=== PATIENT | male | born 1940 | race Caucasian/White ===

== ENCOUNTER 2016-04-17 13:57 | Emergency (ER) | payer OTHER ==
[~2016-04-17] VITALS: Ht 185.4 cm; Wt 119.0 kg
[~2016-04-17 13:57] MED LIST: ALLO100T PO; ASPI81TA82 PO; CENTTAB9 PO; CEPH500C3 PO; CODOIL PO; COMBAER INH; DILT360T PO; FISH1000 PO; FURO20TA PO; LEVO75TA3 PO; LIPI80TA16 PO; LORT5TAB PO; METO25 PO; POTA-243 PO; TERA2CAP3 PO
[2016-04-17 14:08] VITALS: BP 131/80; PULSE 64; RESP 16; TEMP 98.7; O2SAT 97
[2016-04-17] MEDS ORDERED: SODIUM CHLORIDE 0.9% FLUSH 5 ML FLUSH IVF PRN (15:00)
--- NOTE | 2016-04-17 15:01 | PD ---
HPI Chief Complaint: Dizziness Time Seen by Provider: 15:01 Travel History International Travel<30 days: No Contact w/Intl Traveler<30days: No Traveled to known affect area: No History of Present Illness HPI 75-year-old male presents to the emergency department sent by his primary care physician at the [facility]. The patient states he is going to the [facility] today to be seen for right ear pain. He states that when he got out of his car after arriving, he felt dizzy. He states he had a hold on to his car to keep from falling over. He states he felt lightheaded. He denies feeling the room was spinning around him. He states the dizziness continued and EMS was called. Apparently, his blood pressure was hypotensive with 70s systolic. Patient denies any chest pain then or now. He does report shortness of breath with a history of COPD. Patient does state that his amiodarone was increased last week. He has a history of diabetes, hypertension, hyperlipidemia, COPD, atrial fibrillation, hypothyroidism, BPH, CAD, depression, TIA 2, stent placement, AICD. Patient states he feels good at this time. He reports minimal dizziness. No abdominal pain. No nausea or vomiting. His only complaint is right ear pain. PFSH Past Medical History Hx Anticoagulant Therapy: Yes Asthma: Yes Blood Disorders: No Cancer: No Cardiovascular Problems: Yes High Cholesterol: Yes Diabetes: No Endocrine: No Genitourinary: Yes Hepatitis: No Hiatal Hernia: No Hypertension: Yes Immune Disorder: No Musculoskeletal: No Neurologic: No Psychiatric: No Reproductive: No Respiratory: Yes (COPD, USES COMBIVENT INHALER, SLEEP APNEA:CPAP) Thyroid Disease: Yes Tetanus Vaccination: < 5 Years Past Surgical History Abdominal Surgery: Yes (CHOLECYSTECTOMY, APPENDECTOMY) AICD: No Cardiac Surgery: No Cholecystectomy: Yes Ear Surgery: No Endocrine Surgery: No Eye Surgery: No Genitourinary Surgery: No Gynecologic Surgery: No Oral Surgery: Yes (TEETH EXTRACTION) Pacemaker: No Thoracic Surgery: No Other Surgery: Yes Social History Alcohol Use: Yes (ON OCCASION) Tobacco Use: No (QUIT 7 YEARS AGO ) Substance Use: No Allergies-Medications (Allergen,Severity, Reaction): Coded Allergies: No Known Allergies (Verified , 04/17/16) Reported Meds & Prescriptions Reported Meds & Active Scripts Active Lortab 5/500 (Acetaminophen/Hydrocodone Bitart) 5 Mg/500 Mg Tab 1 Tab PO Q6 PRN Keflex (Cephalexin Monohydrate) 500 Mg Cap 500 Mg PO QID Reported Cardizem La (Diltiazem HCl) 360 Mg Tab 360 Mg PO DAILY Lopressor (Metoprolol Tartrate) 25 Mg Tab 12.5 Mg PO BID Allopurinol 100 Mg Tab 100 Mg PO HS Combivent (Albuterol/Ipratropium) 14.7 Gm Aer 2 Puff INH Q6HPRN FOR WHEEZING Aspir-81 (Aspirin) 81 Mg Tab 81 Mg PO DAILY HOLD MEDICATION FOR 2 WEEKS Fish Oil 1,000 Mg Cap 1,000 Mg PO DAILY Centrum (Multivitamins) Tab 1 Tab PO DAILY Lipitor (Atorvastatin Calcium) 80 Mg Tab 80 Mg PO HS Terazosin Hcl (Terazosin HCl) 2 Mg Cap 4 Mg PO HS Cod Liver Oil Oil 1 PO DAILY Levothyroxine Sodium (Generic) (Levothyroxine Sodium) 75 Mcg Tab 75 Mcg PO DAILY Klor-Con 10 Meq (Potassium Chloride) 10 Meq Tabcr 10 Meq PO DAILY Furosemide 20 Mg Tab 20 Mg PO DAILY Review of Systems Except as stated in HPI: all other systems reviewed are Neg Physical Exam Narrative GENERAL: Well-developed well-nourished male patient, ambulatory. Afebrile. SKIN: Warm and dry. HEAD: Normocephalic. Atraumatic. ENT: Mucosa pink and moist. No erythema or exudates. No uvular edema. No uvular , palatal, or tonsillar deviation. Airway patent. Nasal turbinates appear normal without nasal blood, purulent drainage or septal hematoma. Right ear canal is swollen and I am unable to visualize tympanic membrane. No mastoid tenderness. Left tympanic membrane and ear canal are are without erythema. EYES: No scleral icterus. No injection or drainage. NECK: Supple, trachea midline. No JVD or lymphadenopathy. CARDIOVASCULAR: Regular rate and rhythm without murmurs, gallops, or rubs. RESPIRATORY: Breath sounds equal bilaterally. No accessory muscle use. Lungs sounds with inspiratory and expiratory wheezes noted throughout. NEUROLOGICAL: Awake and alert. Cranial nerves II through XII intact. Motor and sensory grossly within normal limits. Five out of 5 muscle strength in all muscle groups. Normal speech. All extremities are neurovascularly intact. Patient is ambulatory with a steady gait. GASTROINTESTINAL: Abdomen soft, non-tender, nondistended. MUSCULOSKELETAL: No cyanosis, or edema. BACK: Nontender without obvious deformity. No CVA tenderness. Data Data Last Documented VS Vital Signs Date Time Temp Pulse Resp B/P Pulse Ox O2 Delivery O2 Flow Rate FiO2 04/17/16 16:33 70 121/85 69 116/70 04/17/16 14:08 98.7 16 97 Orders Electrocardiogram (04/17/16 14:59) Complete Blood Count With Diff (04/17/16 14:59) Comprehensive Metabolic Panel (04/17/16 14:59) Magnesium (Mg) (04/17/16 14:59) Ckmb (Isoenzyme) Profile (04/17/16 14:59) Troponin I (04/17/16 14:59) Urinalysis - C+S If Indicated (04/17/16 14:59) Chest, Single Ap (04/17/16 14:59) Ct Brain W/O Iv Contrast(Rout) (04/17/16 14:59) Ecg Monitoring (04/17/16 14:59) Iv Access Insert/Monitor (04/17/16 14:59) Oximetry (04/17/16 14:59) Sodium Chloride 0.9% Flush (Ns Flush) (04/17/16 15:00) Orthostatic Vital Signs (04/17/16 14:59) Albuterol-Ipratropium Neb (Duoneb Neb) (04/17/16 15:15) Sodium Chlor 0.9% 1000 Ml Inj (Ns 1000 M (04/17/16 18:30) Amoxicillin (Trimox) (04/17/16 18:30) Labs Laboratory Tests Test 04/17/16 04/17/16 15:10 17:55 White Blood Count 10.7 TH/MM3 Red Blood Count 4.37 MIL/MM3 Hemoglobin 13.6 GM/DL Hematocrit 40.6 % Mean Corpuscular Volume 93.0 FL Mean Corpuscular Hemoglobin 31.2 PG Mean Corpuscular Hemoglobin 33.6 % Concent Red Cell Distribution Width 14.9 % Platelet Count 242 TH/MM3 Mean Platelet Volume 9.8 FL Neutrophils (%) (Auto) 65.1 % Lymphocytes (%) (Auto) 20.5 % Monocytes (%) (Auto) 7.7 % Eosinophils (%) (Auto) 5.7 % Basophils (%) (Auto) 1.0 % Neutrophils # (Auto) 7.0 TH/MM3 Lymphocytes # (Auto) 2.2 TH/MM3 Monocytes # (Auto) 0.8 TH/MM3 Eosinophils # (Auto) 0.6 TH/MM3 Basophils # (Auto) 0.1 TH/MM3 CBC Comment DIFF FINAL Differential Comment Sodium Level 138 MEQ/L Potassium Level 4.7 MEQ/L Chloride Level 103 MEQ/L Carbon Dioxide Level 27.8 MEQ/L Anion Gap 7 MEQ/L Blood Urea Nitrogen 24 MG/DL Creatinine 2.29 MG/DL Estimat Glomerular Filtration 28 ML/MIN Rate Random Glucose 79 MG/DL Calcium Level 8.8 MG/DL Magnesium Level 2.3 MG/DL Total Bilirubin 0.5 MG/DL Aspartate Amino Transf 34 U/L (AST/SGOT) Alanine Aminotransferase 45 U/L (ALT/SGPT) Alkaline Phosphatase 87 U/L Total Creatine Kinase 84 U/L Troponin I LESS THAN 0.02 NG/ML Total Protein 7.0 GM/DL Albumin 3.3 GM/DL Urine Color YELLOW Urine Turbidity CLEAR Urine pH 5.5 Urine Specific [place] 1.008 Urine Protein NEG mg/dL Urine Glucose (UA) NEG mg/dL Urine Ketones NEG mg/dL Urine Occult Blood NEG Urine Nitrite NEG Urine Bilirubin NEG Urine Urobilinogen LESS THAN 2.0 MG/DL Urine Leukocyte Esterase NEG Urine RBC LESS THAN 1 /hpf Urine WBC 1 /hpf Urine Squamous Epithelial 1 /hpf Cells Microscopic Urinalysis Comment CULT NOT INDICATED MDM Medical Decision Making Medical Screen Exam Complete: Yes Emergency Medical Condition: Yes Medical Record Reviewed: Yes Interpretation(s) Last Impressions Head CT 04/17/16 1459 Signed Impressions: Service Date/Time: April 15:31 - CONCLUSION: 1. 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 2. No acute intracranial abnormality is identified. Thomas Solares MD chest x-ray - CONCLUSION: Slight cardiomegaly. Differential Diagnosis Vertigo versus intracranial abnormality versus electrolyte abnormality versus ACS Narrative Course 75-year-old male presents to the emergency department for evaluation of dizziness at the [facility] today. He states he is feeling better at the time I am seeing him. EKG, CBC, CMP, magnesium, CK, troponin, UA, chest x-ray, CT of the brain, orthostatic vital signs are ordered and pending. Patient is given DuoNeb 2. EKG shows paced rhythm, HR 52,no STEMI. CBC shows no acute abnormalities. CMP shows 24, creatinine 2.29. Magnesium is 2.3. CK is 84. Troponin is less than 0.02. UA shows no evidence of acute infection. Chest x-ray shows slight cardiomegaly. CT of the brain shows 1. 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 2. No acute intracranial abnormality is identified. Orthostatic vital signs is 121/85 supine, 116/70 standing. Upon reexamination, patient states he still feels wonderful would like to be discharged. Patient's only complaint is right ear pain at this time. Patient be discharged prescription for Ciprodex and amoxicillin. Patient is agreeable to this plan. He is instructed to return for any acute worsening of symptoms. The patient was discharged in stable condition with instructions, including return instructions and follow up instructions. Diagnosis Primary Impression: Otitis externa Qualified Code: H60.501 - Acute otitis externa of right ear, unspecified type Additional Impression: Vertigo Referrals: Primary Care Physician 2 days Patient Instructions: Dizziness (ED), General Instructions, Otitis Externa (ED) Additional Instructions: Take amoxicillin as directed until gone. Use Ciprodex ear drops to the right ear as directed. Follow-up with your primary care physician. Return immediately for any acute worsening of symptoms. Med/Other Pt SpecificInfo: Prescription(s) given Scripts Amoxicillin 875 Mg [id number] Mg PO BID 10 Days Ref 0 Prov:Katelin Castro 04/17/16 Ciprofloxacin-Dexamethasone Otic Drops (Ciprodex Otic Drops)0.3-0.1% Susp4 Drop RIGHT EAR BID #1 BOTTLE Ref 0 Prov:Katelin Castro 04/17/16 Disposition: 01 DISCHARGE HOME Condition: Stable Katelin Castro Apr 17, 2016 15:01
[2016-04-17] MEDS ORDERED: RESP: ALBUTEROL 2.5 MG/IPRATROPIUM 0.5 MG NEB (SCH) INH (15:15)
--- NOTE | 2016-04-17 16:08 | RADRPT ---
EXAM DATE/TIME: 04/17/2016 15:31 [facility] COMPARISON: No previous studies available for comparison. INDICATIONS : Dizziness. RADIATION DOSE: 56.35 CTDIvol (mGy) MEDICAL HISTORY : Cardiovascular disease. Hypertension. Chronic obstructive pulmonary disease. SURGICAL HISTORY : None. ENCOUNTER: Initial ACUITY: 1 day PAIN SCALE: 0/10 LOCATION: cranial TECHNIQUE: Multiple contiguous axial images were obtained of the head. Using automated exposure control and adj ustment of the mA and/or kV according to patient size, radiation dose was kept as low as reasonably a chievable to obtain optimal diagnostic quality images. FINDINGS: CEREBRUM: The ventricles are normal for age. No evidence of midline shift, mass lesion, hemorrhage or acute in farction. 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 No extra-axial fluid collections are seen. POSTERIOR FOSSA: The cerebellum and brainstem are intact. The 4th ventricle is midline. The cerebellopontine angle i s unremarkable. EXTRACRANIAL: The visualized portion of the orbits is intact. SKULL: The calvaria is intact. No evidence of skull fracture. CONCLUSION: 1. 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 2. No acute intracranial abnormality is identified. Thomas Solares MD on April 17, 2016 at 16:06 Board Certified Radiologist. This report was verified electronically.
[2016-04-17 16:28] LABS: BASOPHIL # 0.1 TH/MM3 (0-0.2); EOSINOPHIL # 0.6 TH/MM3 (0-0.4); EOSINOPHIL % 5.7 % (0.0-4.0); HEMATOCRIT 40.6 % (39.0-51.0); HEMO FLAGS DIFF FINAL; LYMPH % 20.5 % (9.0-44.0); LYMPHOCYTE # 2.2 TH/MM3 (1.0-4.8); MEAN CORPUSCULAR HEMOGLOBIN 31.2 PG (27.0-34.0); MEAN CORPUSCULAR HGB CONC 33.6 % (32.0-36.0); MONO % 7.7 % (0.0-8.0); NEUT % 65.1 % (16.0-70.0); PLATELET COUNT 242 TH/MM3 (150-450); RED BLOOD COUNT 4.37 MIL/MM3 (4.50-5.90); RED CELL DISTRIBUTION WIDTH 14.9 % (11.6-17.2); WHITE BLOOD COUNT 10.7 TH/MM3 (4.0-11.0)
[2016-04-17 16:33] VITALS: BP_SYST 116; BP_SYST 121; BP_DIAS 70; BP_DIAS 85
[2016-04-17 17:14] LABS: ALKALINE PHOSPHATASE 87 U/L (45-117); ALT (GPT) 45 U/L (12-78); ANION GAP 7 MEQ/L (5-15); AST (GOT) 34 U/L (15-37); BICARBONATE 27.8 MEQ/L (21.0-32.0); BLOOD UREA NITROGEN 24 MG/DL (7-18); CHLORIDE 103 MEQ/L (98-107); GLOMERULAR FILTRATION RATE 28 ML/MIN (>89); MAGNESIUM 2.3 MG/DL (1.5-2.5); SODIUM (NA) 138 MEQ/L (136-145); TOTAL BILIRUBIN ADULT 0.5 MG/DL (0.2-1.0)
[2016-04-17 17:15] LABS: CREATINE KINASE 84 U/L (39-308); POTASSIUM 4.7 MEQ/L (3.5-5.1)
[2016-04-17 18:23] LABS: BLOOD, URINE NEG (NEG); GLUCOSE,URINE NEG (NEG); KETONE, URINE NEG (NEG); NITRITE,URINE NEG (NEG); PH, URINE 5.5 (5.0-8.5); SQUAMOUS EPITHELIAL CELL URINE 1 /hpf (0-5); URINE COLOR YELLOW (YELLW/STRAW)
[2016-04-17 18:28] LABS: COMMENT (UR) CULT NOT INDICATED; CULTURE IF INDICATED CULT NOT INDICATED
[2016-04-17] MEDS ORDERED: SODIUM CHLOR 0.9% 1000 ML INJ 1,000 ML IV ONE (18:30)
[2016-04-17] MEDS ORDERED: AMOXICILLIN 875 MG TAB PO ONE (18:30)
--- NOTE | 2016-04-17 19:20 | RADRPT ---
EXAM DATE/TIME: 04/17/2016 18:37 [facility] COMPARISON: No previous studies available for comparison. INDICATIONS : Dizziness. MEDICAL HISTORY : None. SURGICAL HISTORY : Pacemaker. ENCOUNTER: Initial ACUITY: 1 day PAIN SCORE: 0/10 LOCATION: Bilateral chest FINDINGS: Slight cardiomegaly is seen. Left subclavian pacer wire is present with tip in the right ventricle. L ungs are clear. CONCLUSION: Slight cardiomegaly. Nisha Meyers MD on April 17, 2016 at 19:18 Board Certified Radiologist. This report was verified electronically.
[2016-04-17] MEDS ORDERED: AMOX875T PO (19:33)
[2016-04-17] MEDS ORDERED: CIPR0.3S RIGHT EAR (19:33)
--- NOTE | 2016-04-18 23:31 | EKG ---
Date Performed: 04/17/2016 Time Performed: 15:18:52 PTAGE: 75 years EKG: Atrial fibrillation. V pacing ABNORMAL RHYTHM ECG PREVIOUS TRACING : 08/21/2010 06.52 DOCTOR: Maryam Piper Interpretating Date/Time 04/18/2016 23:29:13
== END 2016-04-17 20:48 | disposition home or self-care (01) ==
LOC: NEDAMB 13:57
DX: H60.91 Unspecified otitis externa, right ear (principal); R42 Dizziness and giddiness; R06.02 Shortness of breath; I48.91 Unspecified atrial fibrillation; J45.909 Unspecified asthma, uncomplicated
CPT/HCPCS: 70450; 71010; 80053; 81001; 82550; 83735; 84484; 85025; 93005; 94640; 94664; 99285; J7030

== ENCOUNTER 2017-12-01 16:06 | Inpatient (IN) ==
--- NOTE | 2017-12-01 16:46 | ED ---
HPI General Chief complaint: Ore Dryer Problem Stated complaint: Cardiac Time Seen by Provider: 12/01/17 16:17 Source: patient, RN notes reviewed and old records reviewed Mode of arrival: ambulatory History of Present Illness HPI narrative: 77yM presenting with AICD discharge. The patient states that he has a [employer] pacemaker/ defibrillator for history of A fib/ V fib. He has had multiple episodes of vomiting over the past several days and states that last night he felt his AICD discharge once. Today, he has had another 3 episodes of feeling the AICD discharge. He states that prior to these episodes he feels "like my heart starts racing" and gets sweaty and lightheaded. He denies chest pain prior to being defibrillated. He also reports 2 months of diarrhea for which is following with gastroenterology. Dairy Powder Mixer Operator is Dr. Piper. Related Data Home Medications Medication Instructions Recorded Confirmed allopurinol 100 mg PO HS 12/01/17 12/01/17 amiodarone 200 mg PO HS 12/01/17 12/01/17 apixaban [Eliquis] 2.5 mg PO BID 12/01/17 12/01/17 atorvastatin 80 mg PO DAILY 12/01/17 12/01/17 carvedilol 12.5 mg PO ACHS 12/01/17 12/01/17 furosemide [Lasix] 40 mg PO DAILY 12/01/17 12/01/17 glimepiride 2 mg PO QAM 12/01/17 12/01/17 levothyroxine 150 mcg PO DAILY 12/01/17 12/01/17 sacubitril-valsartan [Entresto] 12.5 mg PO DAILY 12/01/17 12/01/17 terazosin 1 mg PO HS 12/01/17 12/01/17 Allergies Allergy/AdvReac Type Severity Reaction Status Date / Time No Known Allergies Allergy Verified 12/01/17 16:52 Review of Systems ROS: all other systems reviewed are negative Constitutional Reports excessive sweating and Denies fever(s) Eyes Denies blurry vision ENT Denies nasal congestion Cardiovascular Denies chest pain and Reports palpitations Respiratory Denies cough Gastrointestinal Denies abdominal pain, Reports diarrhea, Reports nausea and Reports vomiting Genitourinary Denies dysuria Musculoskeletal Denies back pain Neurologic Denies confusion Psychiatric Denies confusion PMFSH History History Provided By: Patient Medical History Medical History Acute biliary pancreatitis (Acute) Cardiac defibrillator in place (Acute) Gallstones (Acute) High cholesterol (Acute) Low blood pressure (Acute) Pacemaker (Acute) Social History Social History Substance History: No History of Abuse Smoking Status: Never smoker How Often Do You Have a Drink Containing Alcohol: Never Recent Travel in [facility] within the Last 8 Weeks: No Recent Out of Country Travel within the Last 8 Weeks: No Exam Const General: healthy appearing and no acute distress HENMT Head: normocephalic and atraumatic Face and sinus: normal facial exam Eyes General: appearance normal, both eyes and all related structures Pupils: PERRL Chest Chest: normal inspection of the chest Resp Effort & Inspection: normal respiratory effort Auscultation: no rhonchi and no wheezes Cardio Rate: regular rate Rhythm: abnormal rhythm GI Inspection: non-distended Palpation: soft and nontender Skin General: no rashes or lesions noted Other: No diaphoresis Neuro General: alert, awake, oriented x3 and no focal motor deficits Psych Affect: normal affect Course Reevaluation(s) Reevaluation #1: Patient just had 20 second run of VT and was defibrillated again. [employer] international sales representative interrogated device and says that the patient has had 7 runs of VT in the past 2 days. Amio bolus/ gtt ordered, cardiology consulted. Time: 17:29 Consultations Consultation #1: Case discussed with Dr. Luu of cardiology, who agrees with amio bolus/ gtt and also recommends beta rolando. He would like the patient kept NPO after midnight for EP study in AM. Time: 17:36 Initial Documented Vital Signs Temperature 97.9 F 12/01/17 16:48 Pulse Rate 84 12/01/17 16:48 Respiratory Rate 15 12/01/17 16:48 Blood Pressure 130/79 12/01/17 16:48 Pulse Oximetry 96 12/01/17 16:48 Last Documented Vital Signs Temperature 97.9 F 12/01/17 16:48 Pulse Rate 84 12/01/17 16:48 Respiratory Rate 15 12/01/17 16:48 Blood Pressure 130/79 12/01/17 16:48 Pulse Oximetry 96 12/01/17 16:48 Critical Care Time Critical Care Time: Yes Total Critical Care Time: 40 Attestation: Counseling/ Coordination of Care: Total critical care time 40 minutes. This includes examining and stabilizing the patient, gathering a history from a source other than the patient (i.e., chart review), formulating a differential diagnosis, ordering and interpreting laboratory tests and EKG, ordering and interpreting radiology tests, discussing the patient's care with other providers [place]), treatment of ventricular tachycardia and life-threatening hypokalemia, re-evaluation at frequent intervals, and documentation. Amount of time is separate from teaching, counseling the patient and/or family, and exclusive of procedures. Medical Decision Making MDM Narrative Medical decision making narrative: Assessment: 77yM presenting with AICD firing x 4 Plan: EKG and monitor CXR Labs, including lytes Paged [employer] rep to have pacer interrogated Addendum: Patient found to have severe hypokalemia and multiple episodes of VT. He will need aggressive repletion, cardiac monitoring, and continued treatment of arrhythmia. Patient may need further workup of nausea/ vomiting after he is stable, too unstable to send for CT right now. Case discussed with [place]. Nazario of [facility] Patient understands and agrees. Medical Screen Exam Complete: Yes Emergency Medical Condition: Yes Differential Diagnosis Differential Diagnosis: Differential diagnosis includes, but is not limited to: arrhythmia, electrolyte abnormality, anemia, lead malfunction, ACS Medical Records Medical records reviewed: Yes I reviewed the patient's medical records. Most recent echo on file is from 2006, patient had an EF of 45% Lab Data Result diagrams: 12/01/17 16:30 12/01/17 16:30 Lab Results 12/01/17 12/01/17 12/01/17 Range/Units 16:30 16:30 16:30 WBC 13.1 H (4.0-11.0) th/mm3 RBC 4.97 (4.50-5.90) mil/mm3 Hgb 16.0 (13.0-17.0) gm/dL Hct 47.4 (39.0-51.0) % MCV 95.4 (80.0-100.0) fL MCH 32.2 (27.0-34.0) pg MCHC 33.8 (32.0-36.0) % RDW 15.3 (11.6-17.2) % Plt Count 243 (150-450) th/mm3 MPV 10.1 (7.0-11.0) fL Neut % (Auto) 80.2 H (16.0-70.0) % Lymph % (Auto) 12.1 (9.0-44.0) % Maries % (Auto) 5.8 (0.0-8.0) % Eos % (Auto) 1.3 (0.0-4.0) % Baso % (Auto) 0.6 (0.0-2.0) % Neut # (Auto) 10.5 H (1.8-7.7) th/mm3 Lymph # (Auto) 1.6 (1.0-4.8) th/mm3 Maries # (Auto) 0.8 (0.0-0.9) th/mm3 Eos # (Auto) 0.2 (0.0-0.4) th/mm3 Baso # (Auto) 0.1 (0.0-0.2) th/mm3 WBC Differential . Differential Comment Auto diff final PT 11.3 (9.8-11.6) sec INR 1.1 Ratio Sodium 135 L (136-145) meq/L Potassium 2.8 L* (3.5-5.1) meq/L Chloride 101 (98-107) meq/L Carbon Dioxide 20.5 L (21.0-32.0) meq/L Anion Gap 14 (5-15) meq/L BUN 54 H (7-18) mg/dL Creatinine 2.58 H (0.60-1.30) mg/dL Estimated GFR 24 L (>89) mL/min Random Glucose 152 H (74-106) mg/dL Calcium 9.5 (8.5-10.1) mg/dL Magnesium 1.8 (1.5-2.5) mg/dL AST 20 (15-37) U/L ALT 30 (12-78) U/L Total Creatine Kinase Cancelled Troponin I Cancelled B-Natriuretic Peptide (0-100) pg/mL Albumin 3.2 L (3.4-5.0) g/dL Lipase 137 (73-393) U/L 12/01/17 12/01/17 Range/Units 16:30 16:30 WBC (4.0-11.0) th/mm3 RBC (4.50-5.90) mil/mm3 Hgb (13.0-17.0) gm/dL Hct (39.0-51.0) % MCV (80.0-100.0) fL MCH (27.0-34.0) pg MCHC (32.0-36.0) % RDW (11.6-17.2) % Plt Count (150-450) th/mm3 MPV (7.0-11.0) fL Neut % (Auto) (16.0-70.0) % Lymph % (Auto) (9.0-44.0) % Maries % (Auto) (0.0-8.0) % Eos % (Auto) (0.0-4.0) % Baso % (Auto) (0.0-2.0) % Neut # (Auto) (1.8-7.7) th/mm3 Lymph # (Auto) (1.0-4.8) th/mm3 Maries # (Auto) (0.0-0.9) th/mm3 Eos # (Auto) (0.0-0.4) th/mm3 Baso # (Auto) (0.0-0.2) th/mm3 WBC Differential Differential Comment PT (9.8-11.6) sec INR Ratio Sodium (136-145) meq/L Potassium (3.5-5.1) meq/L Chloride (98-107) meq/L Carbon Dioxide (21.0-32.0) meq/L Anion Gap (5-15) meq/L BUN (7-18) mg/dL Creatinine (0.60-1.30) mg/dL Estimated GFR (>89) mL/min Random Glucose (74-106) mg/dL Calcium (8.5-10.1) mg/dL Magnesium (1.5-2.5) mg/dL AST (15-37) U/L ALT (12-78) U/L Total Creatine Kinase 36 L Troponin I 0.03 B-Natriuretic Peptide 79 (0-100) pg/mL Albumin (3.4-5.0) g/dL Lipase (73-393) U/L Imaging Data Radiologist's impression: Chest X-Ray 12/01/17 16:30 CONCLUSION: Left subclavian single lead pacer. Lungs are clear. ECG Data Attestation: I personally reviewed and interpreted this ECG as follows: Interpretation: Rate: 92 BPM Rhythm: A fib [place]: Normal Intervals: Normal intervals, no blocks, QTc 452 ms Q waves: III, V2 T waves: Inverted in II ST segments: No elevations or depressions Impression: Rate-controlled atrial fibrillation, previous EKG was V paced. Discharge Plan Physicians Team ED Provider: Regla Nick Primary Care Provider: Katty Casey Other Providers: Maryam Piper Rxs /Orders / Referrals /Forms Prescriptions: No Action furosemide [Lasix] 40 mg Tablet 40 mg PO DAILY RF: 0 atorvastatin 80 mg Tablet 80 mg PO DAILY RF: 0 amiodarone 200 mg Tablet 200 mg PO HS RF: 0 terazosin 1 mg Capsule 1 mg PO HS RF: 0 allopurinol 100 mg Tablet 100 mg PO HS RF: 0 glimepiride 2 mg Tablet 2 mg PO QAM RF: 0 levothyroxine 150 mcg Capsule 150 mcg PO DAILY RF: 0 apixaban [Eliquis] 2.5 mg Tablet 2.5 mg PO BID RF: 0 sacubitril-valsartan [Entresto] 24-26 mg Tablet 12.5 mg PO DAILY RF: 0 carvedilol 12.5 mg tablet 12.5 mg PO ACHS RF: 0 Status ED Status: With Doctor
[2017-12-01 17:12] LABS: Baso # (Auto) 0.1 th/mm3 (0.0-0.2); Baso % (Auto) 0.6 % (0.0-2.0); Eos # (Auto) 0.2 th/mm3 (0.0-0.4); Eos % (Auto) 1.3 % (0.0-4.0); Hematocrit 47.4 % (39.0-51.0); Lymph # (Auto) 1.6 th/mm3 (1.0-4.8); Lymph % (Auto) 12.1 % (9.0-44.0); Mean Corpuscular HGB Conc 33.8 % (32.0-36.0); Mean Corpuscular Hemoglobin 32.2 pg (27.0-34.0); Mean Corpuscular Volume 95.4 fL (80.0-100.0); Mean Platelet Volume 10.1 fL (7.0-11.0); Mono # (Auto) 0.8 th/mm3 (0.0-0.9); Mono % (Auto) 5.8 % (0.0-8.0); Neut # (Auto) 10.5 th/mm3 (1.8-7.7); Neut % (Auto) 80.2 % (16.0-70.0); Platelet Count 243 th/mm3 (150-450); Red Blood Count 4.97 mil/mm3 (4.50-5.90); Red Cell Distribution Width 15.3 % (11.6-17.2); White Blood Count 13.1 th/mm3 (4.0-11.0)
[2017-12-01 17:21] LABS: INR 1.1 Ratio; Prothrombin Time 11.3 sec (9.8-11.6)
[2017-12-01] MEDS ORDERED: Amiodarone Inj 150 MG in Dextrose 5% in Water Inj 97 ML IV.SIG ONE ×2 (17:26)
[2017-12-01] MEDS ORDERED: Magnesium Sulfate Inj 2 GM in Sodium Chlor 0.9% Inj 96 ML IV.SIG ONE (17:34)
--- NOTE | 2017-12-01 17:34 | XR ---
EXAM DATE: 12/01/2017 4:30 PM EDT AGE/SEX: 77 years / Male INDICATIONS: Chest pain. CLINICAL DATA: This is the patient's initial encounter. Patient reports that signs and symptoms have been present for 1 day and indicates a pain score of 2/10. MEDICAL/SURGICAL HISTORY: . A-fib. Pacemaker. COMPARISON: No prior exams available for comparison. FINDINGS: A single AP view of the chest demonstrates the lungs to be symmetrically aerated without evidence of mass, infiltrate or effusion. The cardiomediastinal contours are unremarkable. Osseous structures a re intact. Left subclavian single lead pacer in good position CONCLUSION: Left subclavian single lead pacer. Lungs are clear. Electronically signed by: Dk Donald MD 12/01/2017 5:33 PM EDT
[2017-12-01] MEDS ORDERED: Metoprolol Inj 5 MG/5 ML Vial IV.PUSH ONE (17:35)
[2017-12-01 18:02] LABS: Troponin I 0.03 ng/mL (0.02-0.05)
[2017-12-01 18:05] LABS: Alanine Aminotransferase 30 U/L (12-78); Albumin 3.2 g/dL (3.4-5.0); Anion Gap 14 meq/L (5-15); Aspartate Aminotransferase 20 U/L (15-37); Blood Urea Nitrogen 54 mg/dL (7-18); Calcium 9.5 mg/dL (8.5-10.1); Carbon Dioxide 20.5 meq/L (21.0-32.0); Chloride 101 meq/L (98-107); Glomerular Filtration Rate 24 mL/min (>89); Glucose,Random 152 mg/dL (74-106); Lipase 137 U/L (73-393); Magnesium 1.8 mg/dL (1.5-2.5); Sodium 135 meq/L (136-145)
[2017-12-01 18:07] LABS: Potassium 2.8 meq/L (3.5-5.1)
[2017-12-01] MEDS ORDERED: Sodium Chlor 0.9% Inj 500 ML IV.SIG ONE (18:11)
[2017-12-01 18:38] LABS: Alkaline Phosphatase 96 U/L (45-117); Total Protein 7.4 g/dL (6.4-8.2)
[2017-12-01] MEDS: Potassium Chlor 20 mEq Premix 20 MEQ/100 ML PIGGYBACK IV.SIG SCH ×2 (18:42→22:05)
[2017-12-01] MEDS ORDERED: Morphine Sulfate Inj 2 MG/ML Vial IV.PUSH PRN (19:07)
[2017-12-01] MEDS ORDERED: Bisacodyl 10 MG Supp RECTAL PRN (19:07)
[2017-12-01] MEDS ORDERED: Acetaminophen 325 MG Tablet PO PRN (19:07)
--- NOTE | 2017-12-01 19:16 | P.HPCC ---
History of Present Illness Primary Care Physician: Katty Casey MD History of Present Illness: 77-year-old very pleasant male presents with multiple AICD discharges. The patient states that he has a [employer] pacemaker/ defibrillator for history of A fib/ V fib. He has had multiple episodes of vomiting over the past several days associated with diarrhea and states that last night he felt his AICD discharge once. Today, he has had another 3 episodes of feeling the AICD discharge. He states that prior to these episodes he feels "like my heart starts racing" and gets sweaty and lightheaded. He denies chest pain prior to being defibrillated. He also reports 2 months of diarrhea for which is following with gastroenterology. Inpatient Certification: I certify that the inpatient services were ordered in accordance with Medicare regulations governing the order. This includes certification that hospital inpatient services are reasonable and necessary and in the case of services not specified as inpatient-only under 42 CFR 419.22(n), that they are appropriately provided as inpatient services in accordance to with the 2-midnight benchmark under 43 CFR 412.3(e) Estimated Total Length of Stay (Days): 5 Plans for Post Hospital Care: Not yet determined Review of Systems All other systems reviewed negative except as stated in HPI PMFSH - History History Provided By: Patient - Medical History Medical History: Medical History (Last Reviewed 12/01/17 @ 17:07 by Regla Nick DO) Acute biliary pancreatitis Cardiac defibrillator in place Gallstones High cholesterol Low blood pressure Pacemaker - Tobacco History Smoking Status: Never smoker - Alcohol History How Often Do You Have a Drink Containing Alcohol: Never - Substance Use History Substance History: No History of Abuse - Travel History Recent Travel in the [place] Within the Last 8 Weeks: No Recent Travel Out of the Country Within the Last 8 Weeks: No - Immunization History Tetanus Immunization: <5 Years Medications and Allergies Active Medications: Active Medications Allopurinol (Zyloprim) 100 mg PO HS [facility] Apixaban (Eliquis) 2.5 mg PO BID [facility] Atorvastatin Calcium (Lipitor) 80 mg PO DAILY [facility] Amiodarone HCl 450 mg/ (Dextrose) 250 mls @ 33.33 mls/hr IV.CONT TITRATE PRN; Protocol PRN Reason: Per Protocol Last Admin: 12/01/17 18:17 Dose: 1 mg/min, 33.33 mls/hr Magnesium Sulfate 2 gm/ Sodium (Chloride) 100 mls @ 50 mls/hr IV.SIG ONCE ONE Stop: 12/01/17 19:33 Potassium Chloride (Kcl 20 Meq Premix Inj) 20 meq in 100 mls @ 50 mls/hr IV.SIG Q2H [facility]ANY Stop: 12/02/17 02:14 Last Admin: 12/01/17 18:42 Dose: 50 mls/hr Non-Formulary Medication (Carvedilol) 12.5 mg PO ACHS [facility] Non-Formulary Medication (Levothyroxine [Levothyroxine]) 150 mcg PO DAILY [facility] Sacubitril/Valsartan (Entresto 24 Mg/26 Mg Tablet) tab PO DAILY [facility] Sodium Chloride (Ns Flush) 2 ml IV.FLUSH UNSCH PRN PRN Reason: FLUSH AFTER USING IV ACCESS Terazosin HCl (Hytrin) 1 mg PO [facility] Allergies Allergy/AdvReac Type Severity Reaction Status Date / Time No Known Allergies Allergy Verified 12/01/17 16:52 Home Medications Medication Instructions Recorded Confirmed Type allopurinol 100 mg PO HS 12/01/17 12/01/17 History amiodarone 200 mg PO HS 12/01/17 12/01/17 History apixaban [Eliquis] 2.5 mg PO BID 12/01/17 12/01/17 History atorvastatin 80 mg PO DAILY 12/01/17 12/01/17 History carvedilol 12.5 mg PO DAILY 12/01/17 12/01/17 History furosemide [Lasix] 40 mg PO DAILY 12/01/17 12/01/17 History glimepiride 2 mg PO QAM 12/01/17 12/01/17 History levothyroxine 150 mcg PO DAILY 12/01/17 12/01/17 History sacubitril-valsartan [Entresto] 12.5 mg PO DAILY 12/01/17 12/01/17 History terazosin 1 mg PO HS 12/01/17 12/01/17 History Results - Labs CBC & Chem 7: 12/02/17 02:44 12/02/17 02:44 Labs: Short CBC 12/01/17 Range/Units 16:30 WBC 13.1 H (4.0-11.0) th/mm3 Hgb 16.0 (13.0-17.0) gm/dL Hct 47.4 (39.0-51.0) % Plt Count 243 (150-450) th/mm3 BMP 12/01/17 16:30 Sodium 135 L Potassium 2.8 L* Chloride 101 Carbon Dioxide 20.5 L BUN 54 H Creatinine 2.58 H Calcium 9.5 Cardiac Enzymes 12/01/17 12/01/17 Range/Units 16:30 16:30 Total Creatine Kinase Cancelled 36 L Troponin I Cancelled 0.03 Liver Function 12/01/17 Range/Units 16:30 Total Bilirubin 0.7 (0.2-1.0) mg/dL AST 20 (15-37) U/L ALT 30 (12-78) U/L Alkaline Phosphatase 96 (45-117) U/L Albumin 3.2 L (3.4-5.0) g/dL - Imaging Impressions Chest X-Ray 12/01/17 16:30 CONCLUSION: Left subclavian single lead pacer. Lungs are clear. Exam Vital signs: Vital Signs 12/01/17 16:48 Temperature 97.9 F Pulse Rate 84 Respiratory Rate 15 Blood Pressure 130/79 Pulse Oximetry 96 Intake & Output 12/01/17 12/01/17 12/02/17 06:59 18:59 06:59 Weight 112.491 kg - Constitutional no acute distress - Routine HEENT Exam Head: Present: normocephalic, atraumatic ENT: Present: mucous membranes moist - Routine Neck Exam Present: supple, full ROM. Absent: JVD, carotid bruit - Routine Respiratory Exam Absent: accessory muscle use, rhonchi, stridor, wheezes - Routine Cardiovascular Exam Present: S1, S2, irregularly irregular. Absent: murmur, gallop, rubs - Routine Abdominal Exam Present: soft, normoactive bowel sounds. Absent: tenderness, distended - Routine Extremities Exam Absent: cyanosis, clubbing, edema - Routine Skin Exam Present: intact. Absent: cyanosis, erythema - Routine Neurological Exam Present: alert, oriented X3 Septic Shock Reassessment Septic shock perfusion: reassessment completed Caprini VTE Risk Assessment Caprini VTE Risk Assessment: Moderate/High Risk (score >= 2) Caprini Risk Assessment Model: Point Value = 1 Point Value = 2 Point Value = 3 Point Value = 5 Age 41-60 Minor surgery BMI > 25 kg/m2 Swollen legs Varicose veins or History of unexplained or recurrent spontaneous Oral contraceptives or hormone replacement Sepsis (< 1 month) Serious lung disease, including pneumonia (< 1 month) Abnormal pulmonary function Acute myocardial infarction Congestive heart failure (< 1 month) History of inflammatory bowel disease Medical patient at bed rest Age 61-74 Arthroscopic surgery Major open surgery (> 45 min) Laparoscopic surgery (> 45 min) Malignancy Confined to bed (> 72 hours) Immobilizing plaster cast Central venous access Age >= 75 History of VTE Family history of VTE Factor V Leiden Prothrombin [id number] Lupus anticoagulant Anticardiolipin antibodies Elevated serum homocysteine Heparin-induced thrombocytopenia Other congenital or acquired thrombophilia Stroke (< 1 month) Elective arthroplasty Hip, pelvis, or leg fracture Acute spinal cord injury (< 1 month) Prophylaxis Regimen: Total Risk Factor Score Risk Level Prophylaxis Regimen 0-1 Low Early ambulation 2 Moderate Order ONE of the following: *Sequential Compression Device (SCD) *Heparin 5000 units SQ BID 3-4 Higher Order ONE of the following medications: *Heparin 5000 units SQ TID *Enoxaparin/Lovenox 40 mg SQ daily (WT < 150 kg, CrCl > 30 mL/min) *Enoxaparin/Lovenox 30 mg SQ daily (WT < 150 kg, CrCl > 10-29 mL/min) *Enoxaparin/Lovenox 30 mg SQ BID (WT < 150 kg, CrCl > 30 mL/min) AND/OR *Sequential Compression Device (SCD) 5 or more Highest Order ONE of the following medications: *Heparin 5000 units SQ TID (Preferred with Epidurals) *Enoxaparin/Lovenox 40 mg SQ daily (WT < 150 kg, CrCl > 30 mL/min) *Enoxaparin/Lovenox 30 mg SQ daily (WT < 150 kg, CrCl > 10-29 mL/min) *Enoxaparin/Lovenox 30 mg SQ BID (WT < 150 kg, CrCl > 30 mL/min) AND *Sequential Compression Device (SCD) Assessment and Plan - Assessment and Plan Plan: Ventricular tachycardia -AICD interrogation -Potassium correction and replacement -Magnesium replacement -Cardiology consulted by ED -Series of troponins and EKG to rule out ACS -However no history of chest pain or shortness of breath, first set of troponins negative -Amiodarone drip -Further management per cardiology and EP Hypokalemia -Due to nausea vomiting -IV replacement Acute kidney injury -Severe dehydration -IV fluid resuscitation -Electrolyte replacement per ICU protocol Nausea vomiting -History of biliary pancreatitis -No significant abnormalities on CT abdomen -Consider GI consultation if continues Diarrhea -IV hydration -Supportive care DVT GI prophylaxis -Teds SCDs -Eliquis -Regular diet 35 minutes of critical care
--- NOTE | 2017-12-01 20:37 | CT ---
EXAM DATE: 12/01/2017 7:26 PM EDT AGE/SEX: 77 years / Male INDICATIONS: Nausea, vomiting and diarrhea for a week. CLINICAL DATA: This is the patient's initial encounter. Patient reports that signs and symptoms have been present for 4 - 6 days and indicates a pain score of 0/10. MEDICAL/SURGICAL HISTORY: Pancreatitis. Gallstones. Defibrillator. RADIATION DOSE: 18.79 CTDI (mGy) COMPARISON: No prior exams available for comparison. TECHNIQUE: Multiple contiguous axial images were obtained through the abdomen. Images were obtained using multiple row detector helical technique. Using automated exposure control and adjustment of the mA and/or kV according to patient size, radiation dose was kept as low as reasonably achievable to o btain optimal diagnostic quality images. DICOM format image data is available electronically for rev iew and comparison. FINDINGS: Lower Lungs: There is a pacing lead in the right heart. The lung bases are clear. Liver: The liver has a homogeneous density without space-occupying lesion. There is no dilation of th e biliary tree. Spleen: Homogeneous density without enlargement. Pancreas: Unremarkable without mass or calcification. Significant inflammatory change around the pel vis is not seen. Kidneys: Normal in size and shape. No evidence of hydronephrosis. There is a 2.2 cm exophytic mass o ff the posterior inferior left kidney measuring water density in this noncontrast CT examination. Adrenal Glands: Unremarkable. Aorta: Atherosclerotic calcifications are seen throughout the arterial system. No aneurysm is seen. Bowel/Mesentery: There is a 1.6 cm oval fat density seen in the inferior second portion the duodenum likely related to a lipoma. These are typically incidental. There is a superiorly directed 3.1 cm di verticulum seen at the proximal third portion the duodenum. There are some scattered colonic divertic jasmyn in the sigmoid region without significant inflammatory change. Abdominal Wall: Intact. Retroperitoneum: No evidence of adenopathy in the retrocrural, para-aortic, or deep pelvic regions. Bladder: Contours are smooth. Reproductive Organs: No abnormal masses or calcifications seen. Inguinal: The inguinal region is unremarkable without evidence of adenopathy. Bony Structures: There is degenerative change in the lumbar spine. CONCLUSION: 1. No definite acute abnormality is seen. 2. 2.2 cm exophytic mass off the inferior left kidney. This may represent a cyst although is nonspec ific on this noncontrast CT examination. 3. Degenerative change in lumbar spine. 4. Suspected lipoma at the distal second portion of duodenum and a superiorly directed diverticulum at the proximal third portion the duodenum. Electronically signed by: Grant Robertson MD 12/01/2017 8:36 PM EDT
[2017-12-01] MEDS ORDERED: Temazepam 15 MG Capsule PO PRN (21:00)
[2017-12-01] MEDS: Senna/Docusate Sodium 8.6/50 MG Tablet PO SCH (23:11)
[2017-12-01] MEDS: Allopurinol 100 MG Tablet PO SCH (23:43)
[2017-12-02] MEDS: Potassium Chlor 20 mEq Premix 20 MEQ/100 ML PIGGYBACK IV.SIG SCH ×2 (02:00→06:02)
[2017-12-02] MEDS: Chlorhexidine Gluconate 2% 1 Pack (2 Cloths) TOPICAL SCH (03:17)
[2017-12-02] MEDS ORDERED: Chlorhexidine Gluconate 2% 1 Pack (2 Cloths) TOPICAL PRN (04:00)
[2017-12-02 04:27] LABS: Baso % (Auto) 0.3 % (0.0-2.0); Eos # (Auto) 0.1 th/mm3 (0.0-0.4); Eos % (Auto) 0.9 % (0.0-4.0); Hematocrit 44.3 % (39.0-51.0); Hemoglobin 15.1 gm/dL (13.0-17.0); Lymph # (Auto) 2.1 th/mm3 (1.0-4.8); Lymph % (Auto) 15.5 % (9.0-44.0); Mean Corpuscular HGB Conc 34.2 % (32.0-36.0); Mean Corpuscular Hemoglobin 32.3 pg (27.0-34.0); Mean Corpuscular Volume 94.5 fL (80.0-100.0); Mono # (Auto) 0.9 th/mm3 (0.0-0.9); Mono % (Auto) 7.1 % (0.0-8.0); Neut # (Auto) 10.1 th/mm3 (1.8-7.7); Neut % (Auto) 76.2 % (16.0-70.0); Platelet Count 210 th/mm3 (150-450); Red Blood Count 4.69 mil/mm3 (4.50-5.90); Red Cell Distribution Width 14.9 % (11.6-17.2); White Blood Count 13.3 th/mm3 (4.0-11.0)
[2017-12-02 04:52] LABS: INR 1.1 Ratio
[2017-12-02 05:11] LABS: Alanine Aminotransferase 27 U/L (12-78); Albumin 2.9 g/dL (3.4-5.0); Alkaline Phosphatase 86 U/L (45-117); Anion Gap 10 meq/L (5-15); Aspartate Aminotransferase 19 U/L (15-37); Blood Urea Nitrogen 46 mg/dL (7-18); Calcium 8.2 mg/dL (8.5-10.1); Carbon Dioxide 21.7 meq/L (21.0-32.0); Chloride 107 meq/L (98-107); Glomerular Filtration Rate 29 mL/min (>89); Glucose,Random 105 mg/dL (74-106); Magnesium 2.3 mg/dL (1.5-2.5); Potassium 3.7 meq/L (3.5-5.1); Sodium 139 meq/L (136-145); Total Protein 6.6 g/dL (6.4-8.2); Troponin I 0.11 ng/mL (0.02-0.05)
[2017-12-02] MEDS ORDERED: Potassium Chlor 20 mEq Premix 20 MEQ/100 ML PIGGYBACK IV.SIG ONE (05:39)
[2017-12-02] MEDS: Carvedilol 12.5 MG Tablet PO SCH (08:59)
[2017-12-02] MEDS: Senna/Docusate Sodium 8.6/50 MG Tablet PO SCH ×2 (09:01→20:04)
--- NOTE | 2017-12-02 09:37 | P.PNCC ---
Subjective Subjective Remarks/Hospital Course: 77-year-old very pleasant male presents with multiple AICD discharges. The patient states that he has a [employer] pacemaker/ defibrillator for history of A fib/ V fib. He has had multiple episodes of vomiting over the past several days associated with diarrhea and states that last night he felt his AICD discharge once. Today, he has had another 3 episodes of feeling the AICD discharge. He states that prior to these episodes he feels "like my heart starts racing" and gets sweaty and lightheaded. He denies chest pain prior to being defibrillated. He also reports 2 months of diarrhea for which is following with gastroenterology. Subjective 12/02 -currently resting in bed in no acute distress. No further episodes of dysrhythmia/AICD discharging. Potassium is normalizing. Currently on amiodarone drip. Resting comfortably in bed in no acute distress. Objective Vital Signs / I&O: Vital Signs 12/01/17 16:48 12/01/17 19:00 12/01/17 20:00 Temperature 97.9 F Pulse Rate 84 72 68 Respiratory Rate 15 16 16 Blood Pressure 130/79 130/68 137/65 Pulse Oximetry 96 12/01/17 21:01 12/01/17 21:03 12/01/17 22:07 Temperature Pulse Rate 65 67 Respiratory Rate 16 Blood Pressure 137/78 148/82 H Pulse Oximetry 98 99 12/01/17 22:56 12/01/17 23:00 12/01/17 23:03 Temperature 99.2 F Pulse Rate 66 72 Respiratory Rate 16 25 H Blood Pressure 136/80 Pulse Oximetry 97 98 99 12/01/17 23:15 12/01/17 23:31 12/01/17 23:45 Temperature Pulse Rate 64 63 66 Respiratory Rate 21 14 17 Blood Pressure 134/78 129/68 122/68 Pulse Oximetry 97 97 97 12/02/17 00:00 12/02/17 00:16 12/02/17 00:30 Temperature 99.2 F Pulse Rate 65 64 65 Respiratory Rate 20 17 16 Blood Pressure 120/71 100/55 L 97/53 L Pulse Oximetry 96 96 96 12/02/17 00:45 12/02/17 01:00 12/02/17 01:02 Temperature Pulse Rate 63 63 62 Respiratory Rate 18 18 18 Blood Pressure 88/52 L 84/46 L 89/54 L Pulse Oximetry 94 L 95 95 12/02/17 01:15 12/02/17 01:31 12/02/17 01:45 Temperature Pulse Rate 63 73 64 Respiratory Rate 17 28 H 12 Blood Pressure 90/54 L 96/60 L 96/52 L Pulse Oximetry 95 98 96 12/02/17 02:00 12/02/17 02:15 12/02/17 02:31 Temperature Pulse Rate 66 74 66 Respiratory Rate 23 24 20 Blood Pressure 99/55 L 142/71 H 113/67 Pulse Oximetry 96 96 96 12/02/17 02:45 12/02/17 03:00 12/02/17 03:16 Temperature Pulse Rate 68 64 64 Respiratory Rate 31 H 20 14 Blood Pressure 118/69 120/63 108/55 L Pulse Oximetry 96 96 97 12/02/17 03:30 12/02/17 03:45 12/02/17 04:00 Temperature 98.6 F Pulse Rate 64 64 85 Respiratory Rate 17 17 36 H Blood Pressure 127/62 122/63 145/88 H Pulse Oximetry 97 96 97 12/02/17 04:01 12/02/17 04:15 12/02/17 04:30 Temperature Pulse Rate 83 63 63 Respiratory Rate 32 H 18 17 Blood Pressure 145/88 H 113/55 L 111/60 Pulse Oximetry 96 96 96 12/02/17 04:45 12/02/17 05:00 12/02/17 05:15 Temperature Pulse Rate 64 60 60 Respiratory Rate 20 19 19 Blood Pressure 101/58 L 99/58 L 94/52 L Pulse Oximetry 95 92 L 93 L 12/02/17 05:31 12/02/17 05:45 12/02/17 06:00 Temperature Pulse Rate 61 66 73 Respiratory Rate 16 22 26 H Blood Pressure 110/56 L 109/55 L 106/58 L Pulse Oximetry 96 97 96 12/02/17 06:15 12/02/17 06:30 12/02/17 07:45 Temperature Pulse Rate 64 62 Respiratory Rate 24 18 Blood Pressure 122/63 115/62 Pulse Oximetry 95 94 L 97 Intake & Output 12/01/17 12/02/17 12/02/17 18:59 06:59 18:59 Intake Total 2250 / 2250 Output Total 375 / 375 Balance 1875 / 1875 Weight 112.491 kg 116 kg Intake: IV 2250 / 2250 Cordarone Inj 450 MG In D5W Inj 250 / 250 241 ML @ 1 MG/MIN 33.33 mls/hr IV.CONT TITRATE PRN Rx#: [id number] NS + KCl 20 mEq Inj 1,000 ML @ 1000 / 1000 100 mls/hr IV.CONT .Q10H [facility] Rx #:[id number] Magnesium Sulfate Inj 2 GM In 100 / 100 NS Inj 96 ML @ 50 mls/hr IV.SIG ONCE ONE Rx#:[id number] KCl 20 mEq Premix Inj 20 meq In 300 / 300 100 ml @ 50 mls/hr IV.SIG Q2H [facility] Rx#:[id number] Output: Urine 375 / 375 Other: # Voids 1 Date of Last Bowel Movement 12/02/17 # Bowel Movements 2 Weight On Admission 113 kg Result Diagrams: 12/02/17 02:44 12/02/17 02:44 Imaging: Abdomen/Pelvis CT 12/01/17 00:00 CONCLUSION: 1. No definite acute abnormality is seen. 2. 2.2 cm exophytic mass off the inferior left kidney. This may represent a cyst although is nonspecific on this noncontrast CT examination. 3. Degenerative change in lumbar spine. 4. Suspected lipoma at the distal second portion of duodenum and a superiorly directed diverticulum at the proximal third portion the duodenum. Chest X-Ray 12/01/17 16:30 CONCLUSION: Left subclavian single lead pacer. Lungs are clear. Objective Remarks: GENERAL: 77-year-old male currently resting in bed in no acute distress SKIN: Warm and dry. No rash HEAD: Atraumatic. Normocephalic. EYES: Pupils equal and round. No scleral icterus. No injection or drainage. ENT: No nasal bleeding or discharge. Mucous membranes pink and moist. NECK: Trachea midline. No JVD. CARDIOVASCULAR: Regular rate and rhythm. RESPIRATORY: No accessory muscle use. Clear to auscultation. Breath sounds equal bilaterally. GASTROINTESTINAL: Abdomen soft, non-tender, nondistended. Hepatic and splenic margins not palpable. MUSCULOSKELETAL: Extremities without significant peripheral edema. No obvious deformities. NEUROLOGICAL: Awake and alert. No obvious cranial nerve deficits. Motor grossly within normal limits. Five out of 5 muscle strength in the arms and legs. Normal speech. PSYCHIATRIC: Appropriate mood and affect; insight and judgment normal. Assessment and Plan - Assessment and Plan Plan: Neuro/Psych: Acetaminophen 650 p.o. every 6 hours as needed fever Morphine sulfate 2 mg IV every 2 hours as needed pain CV: V. tach likely secondary to severe hypokalemia Status post AICD Essential hypertension Hyperlipidemia Elevated troponin Patient with a Lucas AICD. Interrogation 12/01 revealed 5 episodes of V. tach with successful cardioversion Cardiology consultation with Dr. Piper Currently on Ambien drip at 0.5 mg/min per protocol. Previously on 20 mg daily at home Continue carvedilol 12.5 mg daily/home medication for hypertension along with trazodone 1 mg daily Continue atorvastatin 80 mg daily for dyslipidemia. Currently holding sacubitril/valsartan 2 06/11 1 tablet daily Resp: Cannula to maintain saturations greater than equal 92% Incentive spirometry while awake As needed albuterol aerosols every 2 hours as needed dyspnea GI: Persistent nausea/vomiting Duodenal diverticulum History of biliary pancreatitis N.p.o. except for medications Pantoprazole for GI prophylaxis Docusate sodium/senna 1 tablet twice daily for bowel regimen. CT abdomen/pelvis revealed. No definite acute abnormality is seen. 2.2 cm exophytic mass off the inferior left kidney. This may represent a cyst although is nonspecific on this noncontrast CT examination. Degenerative change in lumbar spine. Suspected lipoma at the distal second portion of duodenum and a superiorly directed diverticulum at the proximal third portion the duodenum. Consultation with gastroenterology/Dr. Tipton : Tripp catheter if indicated for accurate I's and O's in a critical patient Endo: Hypothyroidism Gout Continue levothyroxine 150 mcg p.o. daily Allopurinol 100 mg daily Sliding scale insulin if indicated to maintain euglycemia Renal: Kidney injury acute versus chronic Left renal cyst Avoid nephrotoxic medications Monitor urine output Accurate I's and O's Nephrology consult for assistance with management Heme: Chronic apixaban use Leukocytosis Monitor CBC daily. Follow trends per Continue apixaban 2.5 mg twice daily ID: Monitor for signs and symptomatology infection FEN: Acute hypokalemia 30 mEq KCl p.o. x1 now. Recheck at 1800 hrs. Currently normal saline with 20 mEq s of KCl at 100 cc an hour MSK: Elevated BMI Weight loss encouraged PT evaluate and treat Access -Utilize peripheral IV. Central line if indicated Prophylaxis GI--Pantoprazole DVT - apixaban provides DVT prophylaxis Level 3 follow-up
--- NOTE | 2017-12-02 10:43 | P.CONNP ---
History of Present Illness Service: Nephrology Reason for Consult: Acute on chronic kidney disease Primary Care Provider: Katty Casey MD History of Present Illness: Mr. Jo was admitted with history of AICD discharging repeatedly. He felt a sensation of palpitations before each episode. Patient was admitted and placed on Amiodarone drip. Patient was found to be hypokalemic, with serum potassium of 2.8 on admission, and creatinine of 2.52. In 05/02, his creatinine was 2.29, and so he may have stage IV CKD. His GFR was 28 in 05/02. His creatinine has improved to 2.2 today. Patient apparently was having GI symptoms: nausea/ vomiting and diarrhea. Review of Systems Constitutional: Reports fatigue Eyes: Denies blind spots, Denies blurry vision Cardiovascular: Reports rapid, pounding, or irregular heartbeat, Denies chest pain at rest Respiratory: Denies cough Gastrointestinal: Reports loose stools, Reports nausea, Reports vomiting, Denies abdominal pain PMFSH - History History Provided By: Patient - Medical History Medical History: Medical History (Last Reviewed 12/02/17 @ 11:57 by Leona Luis) Acute biliary pancreatitis Cardiac defibrillator in place Gallstones High cholesterol Low blood pressure Pacemaker - Tobacco History Second Hand Smoke Exposure: No Tobacco Use In Past 30 Days: No Smoking Status: Never smoker - Alcohol History How Often Do You Have a Drink Containing Alcohol: Never - Substance Use History Substance History: No History of Abuse - Travel History Recent Travel in the [place] Within the Last 8 Weeks: No Recent Travel Out of the Country Within the Last 8 Weeks: No - Immunization History Tetanus Immunization: <5 Years Hx Influenza Vaccine This Season: Yes Medications and Allergies Active Medications: Active Medications Acetaminophen (Tylenol) 650 mg PO Q6H PRN PRN Reason: PAIN 1-10 AND/OR FEVER >101F Al Hydroxide/Mg Hydroxide (Milk Of Magnesia Liq) 30 ml PO Q12H PRN PRN Reason: Mild Constipation Albuterol (Albuterol Neb (Prn)) 2.5 mg NEB Q2HR NEB PRN PRN Reason: DYSPNEA Allopurinol (Zyloprim) 100 mg PO HS [facility] Last Admin: 12/01/17 23:43 Dose: Not Given Apixaban (Eliquis) 2.5 mg PO BID [facility] Last Admin: 12/02/17 08:59 Dose: 2.5 mg Atorvastatin Calcium (Lipitor) 80 mg PO DAILY [facility] Last Admin: 12/02/17 09:00 Dose: 80 mg Bisacodyl (Dulcolax Supp) 10 mg RECTAL DAILY PRN PRN Reason: SEVERE CONSITIPATION Carvedilol (Coreg) 12.5 mg PO DAILY [facility] Last Admin: 12/02/17 08:59 Dose: 12.5 mg Chlorhexidine Gluconate (Chlorhexidine 2% Cloth) 3 pack TOPICAL DAILY@0400 [facility] Stop: 12/07/17 03:59 Last Admin: 12/02/17 03:17 Dose: 3 pack Chlorhexidine Gluconate (Chlorhexidine 2% Cloth) 3 pack TOPICAL DAILY@0400 PRN PRN Reason: Extra cloth needed Stop: 12/07/17 03:59 Amiodarone HCl 450 mg/ (Dextrose) 250 mls @ 33.33 mls/hr IV.CONT TITRATE PRN; Protocol PRN Reason: Per Protocol Last Admin: 12/02/17 02:00 Dose: 1 mg/min, 33.33 mls/hr Potassium Chloride/Sodium Chloride (Ns + Kcl 20 Meq Inj) 1,000 mls @ 100 mls/ hr IV.CONT .Q10H [facility] Last Admin: 12/02/17 02:01 Dose: 100 mls/hr Lactulose (Lactulose Liq) 30 ml PO DAILY PRN PRN Reason: SEVERE CONSITIPATION Levothyroxine Sodium (Synthroid) 150 mcg PO DAILY@0600 [facility] Morphine Sulfate (Morphine Inj) 2 mg IV.PUSH Q2H PRN PRN Reason: PAIN SCALE 6 TO 10 Ondansetron HCl (Zofran Inj) 4 mg IV.PUSH Q6H PRN PRN Reason: NAUSEA OR VOMITING Last Admin: 12/01/17 23:46 Dose: 4 mg Sacubitril/Valsartan (Entresto 24 Mg/26 Mg Tablet) 1 tab PO DAILY [facility] Last Admin: 12/02/17 09:00 Dose: 1 tab Senna/Docusate Sodium (Emely-Colace) 1 tab PO BID [facility] Last Admin: 12/02/17 09:01 Dose: Not Given Sennosides (Senokot) 17.2 mg PO Q12H PRN PRN Reason: Moderate Constipation Sodium Chloride (Ns Flush) 2 ml IV.FLUSH UNSCH PRN PRN Reason: FLUSH AFTER USING IV ACCESS Sodium Chloride (Ns Flush) 2 ml IV.FLUSH BID [facility] Last Admin: 12/02/17 09:01 Dose: 2 ml Sodium Chloride (Ns Flush) 2 ml IV.FLUSH PRN PRN PRN Reason: FLUSH AFTER USING IV ACCESS Temazepam (Restoril) 15 mg PO HS PRN PRN Reason: INSOMNIA Terazosin HCl (Hytrin) 1 mg PO HS [facility] Last Admin: 12/01/17 23:43 Dose: Not Given Allergies Allergy/AdvReac Type Severity Reaction Status Date / Time No Known Allergies Allergy Verified 12/01/17 16:52 Home Medications Medication Instructions Recorded Confirmed Type allopurinol 100 mg PO HS 12/01/17 12/01/17 History amiodarone 200 mg PO HS 12/01/17 12/01/17 History apixaban [Eliquis] 2.5 mg PO BID 12/01/17 12/01/17 History atorvastatin 80 mg PO DAILY 12/01/17 12/01/17 History carvedilol 12.5 mg PO DAILY 12/01/17 12/01/17 History furosemide [Lasix] 40 mg PO DAILY 12/01/17 12/01/17 History glimepiride 2 mg PO QAM 12/01/17 12/01/17 History levothyroxine 150 mcg PO DAILY 12/01/17 12/01/17 History sacubitril-valsartan [Entresto] 12.5 mg PO DAILY 12/01/17 12/01/17 History terazosin 1 mg PO HS 12/01/17 12/01/17 History Exam Vital signs: Vital Signs 12/01/17 16:48 12/01/17 19:00 12/01/17 20:00 Temperature 97.9 F Pulse Rate 84 72 68 Respiratory Rate 15 16 16 Blood Pressure 130/79 130/68 137/65 Pulse Oximetry 96 12/01/17 21:01 12/01/17 21:03 12/01/17 22:07 Temperature Pulse Rate 65 67 Respiratory Rate 16 Blood Pressure 137/78 148/82 H Pulse Oximetry 98 99 12/01/17 22:56 12/01/17 23:00 12/01/17 23:03 Temperature 99.2 F Pulse Rate 66 72 Respiratory Rate 16 25 H Blood Pressure 136/80 Pulse Oximetry 97 98 99 12/01/17 23:15 12/01/17 23:31 12/01/17 23:45 Temperature Pulse Rate 64 63 66 Respiratory Rate 21 14 17 Blood Pressure 134/78 129/68 122/68 Pulse Oximetry 97 97 97 12/02/17 00:00 12/02/17 00:16 12/02/17 00:30 Temperature 99.2 F Pulse Rate 65 64 65 Respiratory Rate 20 17 16 Blood Pressure 120/71 100/55 L 97/53 L Pulse Oximetry 96 96 96 12/02/17 00:45 12/02/17 01:00 12/02/17 01:02 Temperature Pulse Rate 63 63 62 Respiratory Rate 18 18 18 Blood Pressure 88/52 L 84/46 L 89/54 L Pulse Oximetry 94 L 95 95 12/02/17 01:15 12/02/17 01:31 12/02/17 01:45 Temperature Pulse Rate 63 73 64 Respiratory Rate 17 28 H 12 Blood Pressure 90/54 L 96/60 L 96/52 L Pulse Oximetry 95 98 96 12/02/17 02:00 12/02/17 02:15 12/02/17 02:31 Temperature Pulse Rate 66 74 66 Respiratory Rate 23 24 20 Blood Pressure 99/55 L 142/71 H 113/67 Pulse Oximetry 96 96 96 12/02/17 02:45 12/02/17 03:00 12/02/17 03:16 Temperature Pulse Rate 68 64 64 Respiratory Rate 31 H 20 14 Blood Pressure 118/69 120/63 108/55 L Pulse Oximetry 96 96 97 12/02/17 03:30 12/02/17 03:45 12/02/17 04:00 Temperature 98.6 F Pulse Rate 64 64 85 Respiratory Rate 17 17 36 H Blood Pressure 127/62 122/63 145/88 H Pulse Oximetry 97 96 97 12/02/17 04:01 12/02/17 04:15 12/02/17 04:30 Temperature Pulse Rate 83 63 63 Respiratory Rate 32 H 18 17 Blood Pressure 145/88 H 113/55 L 111/60 Pulse Oximetry 96 96 96 12/02/17 04:45 12/02/17 05:00 12/02/17 05:15 Temperature Pulse Rate 64 60 60 Respiratory Rate 20 19 19 Blood Pressure 101/58 L 99/58 L 94/52 L Pulse Oximetry 95 92 L 93 L 12/02/17 05:31 12/02/17 05:45 12/02/17 06:00 Temperature Pulse Rate 61 66 73 Respiratory Rate 16 22 26 H Blood Pressure 110/56 L 109/55 L 106/58 L Pulse Oximetry 96 97 96 12/02/17 06:15 12/02/17 06:30 12/02/17 07:45 Temperature Pulse Rate 64 62 Respiratory Rate 24 18 Blood Pressure 122/63 115/62 Pulse Oximetry 95 94 L 97 Intake & Output 12/01/17 12/02/17 12/02/17 18:59 06:59 18:59 Intake Total 2250 / 2250 Output Total 375 / 375 Balance 1875 / 1875 Weight 112.491 kg 116 kg Intake: IV 2250 / 2250 Cordarone Inj 450 MG In D5W Inj 250 / 250 241 ML @ 1 MG/MIN 33.33 mls/hr IV.CONT TITRATE PRN Rx#: [id number] NS + KCl 20 mEq Inj 1,000 ML @ 1000 / 1000 100 mls/hr IV.CONT .Q10H [facility] Rx #:[id number] Magnesium Sulfate Inj 2 GM In 100 / 100 NS Inj 96 ML @ 50 mls/hr IV.SIG ONCE ONE Rx#:[id number] KCl 20 mEq Premix Inj 20 meq In 300 / 300 100 ml @ 50 mls/hr IV.SIG Q2H [facility] Rx#:[id number] Output: Urine 375 / 375 Other: # Voids 1 Date of Last Bowel Movement 12/02/17 # Bowel Movements 2 Weight On Admission 113 kg - Constitutional no acute distress, obese - Routine HEENT Exam Head: Present: normocephalic, atraumatic Eye: Present: EOMI, PERRL ENT: Present: mucous membranes moist - Routine Neck Exam Present: supple, full ROM. Absent: JVD, lymphadenopathy, thyromegaly - Routine Respiratory Exam Present: CTA bilaterally - Routine Extremities Exam Present: full ROM. Absent: cyanosis, clubbing, edema - Routine Skin Exam Present: intact - Routine Neurological Exam Present: alert, oriented X3, CN II-XII intact Results - Lab Results 12/02/17 02:44 12/02/17 02:44 Most recent lab results Calcium 8.2 mg/dL (8.5-10.1) L D 12/02/17 02:44 Phosphorus 3.0 mg/dL (2.5-4.9) 12/02/17 02:44 Magnesium 2.3 mg/dL (1.5-2.5) 12/02/17 02:44 Assessment and Plan - Assessment (1) Acute worsening of stage 4 chronic kidney disease Code(s): N28.9 - Disorder of kidney and ureter, unspecified; N18.4 - Chronic kidney disease, stage 4 (severe) Status: Acute Plan: likely due to intravascular volume depletion and pre-renal state. Renal function has improved, and it is possible that he is at his baseline GFR, as suggested by labs in April of 2016. Avoid nephrotoxic agents. Taper off fluids as tolerated. CT did not reveal any hydronephrosis, no need for renal US. 2.2 cm exophytic mass seen in the left kidney, may need followup with a Urologist after discharge. (2) Ventricular tachycardia Code(s): I47.2 - Ventricular tachycardia Status: Acute Plan: patient is s/p AICD placement. On Amiodarone drip. Cardiology consulted. (3) Acute hypokalemia Code(s): E87.6 - Hypokalemia Status: Acute Plan: Patient was on Lasix, also had developed GI symptoms. Hypokalemia has improved. Replacement ordered. (4) Heart failure, unspecified Code(s): I50.9 - Heart failure, unspecified Status: Acute Plan: monitor fluid and electrolytes. He was on Entresto. - Attending Attestation Thanks for the consult.
[2017-12-02 11:06] LABS: Thyroid Stimulating Hormone 0.655 uIU/mL (0.358-3.740)
[2017-12-02] MEDS: Levothyroxine 150 MCG Tablet PO SCH (13:30)
--- NOTE | 2017-12-02 17:00 | ECHRPT ---
Indication: CARDIOMYOPATHY CONCLUSIONS Mildly dilated left ventricle. Mild concentric left ventricular hypertrophy. The left ventricular systolic function is normal with an estimated ejection fraction of 55%. The left atrial size is tpnn-so-aiazlnzzir dilated. Krtae-yk-vqir mitral valve regurgitation. There is estimated moderate pulmonary hypertension present (range 50-60 mmHg). BP: / HR: Rhythm: MEASUREMENTS (Male / Female) Normal Values Technical Quality: 2D ECHO LV Diastolic Diameter PLAX 5.9 cm 4.2 - 5.9 / 3.9 - 5.3 cm LV Systolic Diameter PLAX 4.4 cm IVS Diastolic Thickness 1.3 cm 0.6 - 1.0 / 0.6 - 0.9 cm LVPW Diastolic Thickness 1.3 cm 0.6 - 1.0 / 0.6 - 0.9 cm LV Relative Wall Thickness 0.5 RV Internal Dim ED PLAX 3.8 cm LVOT Diameter 2.0 cm Aortic Root Diameter 3.1 cm LA Systolic Diameter LX 4.4 cm 3.0 - 4.0 / 2.7 - 3.8 cm LV Ejection Fraction MOD 4C 59.6 % LV Ejection Fraction 4C AL 60.3 % M-MODE Aortic Root Diameter MM 3.9 cm LA Systolic Diameter MM 5.7 cm LA Ao Ratio MM 1.5 AV Cusp Separation MM 2.5 cm DOPPLER AV Peak Velocity 145.0 cm/s AV Peak Gradient 8.4 mmHg LVOT Peak Velocity 83.9 cm/s LVOT Peak Gradient 2.8 mmHg AV Area Cont Eq pk 1.8 cm Mitral E Point Velocity 72.6 cm/s Mitral A Point Velocity 30.6 cm/s Mitral E to A Ratio 2.4 LV E' Lateral Velocity 10.6 cm/s Mitral E to LV E' Lateral Ratio 6.8 LV E' Septal Velocity 5.9 cm/s Mitral E to LV E' Septal Ratio 12.2 TR Peak Velocity 316.0 cm/s TR Peak Gradient 39.9 mmHg Right Atrial Pressure 10.0 mmHg Pulmonary Artery Systolic Pressu 49.9 mmHg Right Ventricular Systolic Press 49.9 mmHg PV Peak Velocity 107.0 cm/s PV Peak Gradient 4.6 mmHg FINDINGS LEFT VENTRICLE Mildly dilated left ventricle. Mild concentric left ventricular hypertrophy. The left ventricular systolic function is normal with an estimated ejection fraction of 55%. RIGHT VENTRICLE Normal right ventricular size and systolic function. LEFT ATRIUM The left atrial size is ceyy-dq-extovwmrgj dilated. RIGHT ATRIUM The right atrial size is normal. ATRIAL SEPTUM Normal atrial septal thickness without atrial level shunting by limited color doppler interrogation. AORTA The aortic root and proximal ascending aorta are normal in size on limited imaging. MITRAL VALVE Acrma-aj-hhyy mitral valve regurgitation. AORTIC VALVE Trileaflet aortic valve. No aortic valve stenosis or regurgitation. TRICUSPID VALVE There is estimated moderate pulmonary hypertension present (range 50-60 mmHg). PULMONARY VALVE The pulmonary valve is not well visualized. VESSELS The inferior vena cava is normal in size. PERICARDIUM No pericardial effusion. Cyrus Prakash MD, FACC (Electronically Signed) Final Date:02 December 2017 17:00
[2017-12-02 19:31] LABS: Bilirubin,Urine Negative (Negative); Clarity,Urine Clear (Clear); Color,Urine Yellow (Yellw/Straw); Glucose,Urine (UA) Negative (Negative); Hyaline Casts,Urine 1 /lpf (0-3); Leukocyte Esterase,Urine Negative (Negative); Nitrite,Urine Negative (Negative)
--- NOTE | 2017-12-02 20:23 | ECG ---
Date Performed: 12/01/2017 Time Performed: 20:42:14 PTAGE: 77 years EKG: ATRIAL FIBRILLATION LOW QRS VOLTAGE MODERATE INTRAVENTRICULAR CONDUCTION DELAY Since previo us tracing, no significant change noted ABNORMAL ECG PREVIOUS TRACING : 12/01/2017 16.39 DOCTOR: Martell Travis Interpretating Date/Time 12/02/2017 20:23:20
--- NOTE | 2017-12-02 20:23 | ECG ---
Date Performed: 12/01/2017 Time Performed: 16:39:40 PTAGE: 77 years EKG: ATRIAL FLUTTER/TACHYCARDIA WITH ABERRANT CONDUCTION OR VENTRICULAR PREMATURE COMPLEXES MODE RATE INTRAVENTRICULAR CONDUCTION DELAY NONSPECIFIC ST & T-WAVE ABNORMALITY When compared tomprevious tracing, ventricular response toatrial Fibrillation has increased. Pacing is not currently seen. ABNO RMAL RHYTHM ECG PREVIOUS TRACING : 04/17/2016 15.18.52 DOCTOR: Martell Travis Interpretating Date/Time 12/02/2017 20:22:59
[2017-12-02] MEDS: Allopurinol 100 MG Tablet PO SCH (21:10)
[2017-12-03 00:02] LABS: Creatinine,Urine Random 175 mg/dL (27-300)
[2017-12-03] MEDS: Chlorhexidine Gluconate 2% 1 Pack (2 Cloths) TOPICAL SCH (03:59)
[2017-12-03 04:55] LABS: Baso # (Auto) 0.1 th/mm3 (0.0-0.2); Baso % (Auto) 0.6 % (0.0-2.0); Eos # (Auto) 0.6 th/mm3 (0.0-0.4); Eos % (Auto) 4.9 % (0.0-4.0); Hematocrit 40.1 % (39.0-51.0); Hemoglobin 13.6 gm/dL (13.0-17.0); Lymph # (Auto) 2.6 th/mm3 (1.0-4.8); Mean Corpuscular Hemoglobin 32.4 pg (27.0-34.0); Mean Corpuscular Volume 95.3 fL (80.0-100.0); Mean Platelet Volume 9.3 fL (7.0-11.0); Mono % (Auto) 8.3 % (0.0-8.0); Neut # (Auto) 8.1 th/mm3 (1.8-7.7); Neut % (Auto) 65.2 % (16.0-70.0); Platelet Count 185 th/mm3 (150-450); Red Blood Count 4.21 mil/mm3 (4.50-5.90); White Blood Count 12.5 th/mm3 (4.0-11.0)
[2017-12-03] MEDS: Levothyroxine 150 MCG Tablet PO SCH (05:05)
[2017-12-03 05:32] LABS: Alanine Aminotransferase 23 U/L (12-78); Albumin 2.5 g/dL (3.4-5.0); Alkaline Phosphatase 78 U/L (45-117); Anion Gap 9 meq/L (5-15); Aspartate Aminotransferase 17 U/L (15-37); Blood Urea Nitrogen 29 mg/dL (7-18); Calcium 7.7 mg/dL (8.5-10.1); Chloride 111 meq/L (98-107); Glomerular Filtration Rate 38 mL/min (>89); Glucose,Random 87 mg/dL (74-106); Phosphorus 2.4 mg/dL (2.5-4.9); Potassium 3.6 meq/L (3.5-5.1); Sodium 141 meq/L (136-145); Total Protein 5.7 g/dL (6.4-8.2); Troponin I 0.08 ng/mL (0.02-0.05)
[2017-12-03] MEDS: Carvedilol 12.5 MG Tablet PO SCH (09:57)
[2017-12-03] MEDS: Senna/Docusate Sodium 8.6/50 MG Tablet PO SCH ×2 (09:57→21:34)
--- NOTE | 2017-12-03 14:47 | P.PNCC ---
Subjective Subjective Remarks/Hospital Course: 77-year-old very pleasant male presents with multiple AICD discharges. The patient states that he has a [employer] pacemaker/ defibrillator for history of A fib/ V fib. He has had multiple episodes of vomiting over the past several days associated with diarrhea and states that last night he felt his AICD discharge once. Today, he has had another 3 episodes of feeling the AICD discharge. He states that prior to these episodes he feels "like my heart starts racing" and gets sweaty and lightheaded. He denies chest pain prior to being defibrillated. He also reports 2 months of diarrhea for which is following with gastroenterology. Subjective 12/02 -currently resting in bed in no acute distress. No further episodes of dysrhythmia/AICD discharging. Potassium is normalizing. Currently on amiodarone drip. Resting comfortably in bed in no acute distress. 12/03: doing well. still complains of diarrhea. no cardiac events. ROS otherwise negative except for diarrhea. Objective Vital Signs / I&O: Vital Signs 12/02/17 15:00 12/02/17 16:00 12/02/17 17:00 Temperature 36.9 C Pulse Rate 58 L 54 L 50 L Respiratory Rate 21 19 21 Blood Pressure 96/52 L 90/50 L 87/53 L Pulse Oximetry 95 96 98 12/02/17 18:00 12/02/17 18:01 12/02/17 19:00 Temperature Pulse Rate 52 L 52 L 51 L Respiratory Rate 19 15 15 Blood Pressure 86/49 L 86/49 L 100/58 L Pulse Oximetry 97 97 12/02/17 20:00 12/02/17 20:01 12/02/17 20:28 Temperature 36.8 C Pulse Rate 58 L 57 L 53 L Respiratory Rate 20 22 18 Blood Pressure 101/73 Pulse Oximetry 98 100 12/02/17 21:00 12/02/17 22:00 12/03/17 00:00 Temperature 37.0 C Pulse Rate 54 L 53 L 52 L Respiratory Rate 20 21 Blood Pressure 86/50 L Pulse Oximetry 92 L 12/03/17 02:00 12/03/17 04:00 12/03/17 06:00 Temperature 36.6 C Pulse Rate 53 L 57 L 50 L Respiratory Rate 21 Blood Pressure 108/62 Pulse Oximetry 96 12/03/17 06:59 12/03/17 08:00 12/03/17 09:00 Temperature 36.6 C Pulse Rate 50 L 50 L 59 L Respiratory Rate 18 Blood Pressure 109/58 L Pulse Oximetry 96 12/03/17 10:00 12/03/17 12:00 12/03/17 14:00 Temperature 36.7 C Pulse Rate 58 L 53 L 51 L Respiratory Rate 18 Blood Pressure 103/55 L Pulse Oximetry 98 Intake & Output 12/02/17 12/03/17 12/03/17 18:59 06:59 18:59 Intake Total 1900 / 1900 990 / 990 700 / 700 Output Total 725 / 725 Balance 1175 / 1175 990 / 990 700 / 700 Weight 118 kg Intake: IV 1100 / 1100 540 / 540 700 / 700 Cordarone Inj 450 MG In D5W Inj 240 / 240 241 ML @ 1 MG/MIN 33.33 mls/hr IV.CONT TITRATE PRN Rx#: [id number] NS + KCl 20 mEq Inj 1,000 ML @ 1000 / 1000 300 / 300 700 / 700 50 mls/hr IV.CONT .Q20H [facility] Rx# :[id number] Oral 800 / 800 450 / 450 Output: Urine 725 / 725 Other: # Voids 3 Date of Last Bowel Movement 12/02/17 12/03/17 12/03/17 # Bowel Movements 4 4 Result Diagrams: 12/03/17 04:46 12/03/17 04:46 Objective Remarks: GENERAL: 77-year-old male currently resting in bed in no acute distress SKIN: Warm and dry. No rash HEAD: Atraumatic. Normocephalic. EYES: Pupils equal and round. No scleral icterus. No injection or drainage. ENT: No nasal bleeding or discharge. Mucous membranes pink and moist. NECK: Trachea midline. No JVD. CARDIOVASCULAR: Regular rate and rhythm. RESPIRATORY: No accessory muscle use. equal chest rise. GASTROINTESTINAL: Abdomen soft, non-tender, nondistended. Hepatic and splenic margins not palpable. MUSCULOSKELETAL: Extremities without significant peripheral edema. No obvious deformities. NEUROLOGICAL: Awake and alert. No obvious cranial nerve deficits. Motor grossly within normal limits. Five out of 5 muscle strength in the arms and legs. Normal speech. PSYCHIATRIC: Appropriate mood and affect; insight and judgment normal. Assessment and Plan - Assessment and Plan Plan: Neuro/Psych: Acetaminophen 650 p.o. every 6 hours as needed fever Morphine sulfate 2 mg IV every 2 hours as needed pain CV: V. tach likely secondary to severe hypokalemia Status post AICD Essential hypertension Hyperlipidemia Elevated troponin Patient with a [facility] AICD. Interrogation 12/01 revealed 5 episodes of V. tach with successful cardioversion Cardiology consultation with Dr. Piper Currently on amiodarone drip at 0.5 mg/min per protocol. Previously on 20 mg daily at home Continue carvedilol 12.5 mg daily/home medication for hypertension along with trazodone 1 mg daily Continue atorvastatin 80 mg daily for dyslipidemia. Currently holding sacubitril/valsartan 2 06/11 1 tablet daily Resp: Cannula to maintain saturations greater than equal 92% Incentive spirometry while awake As needed albuterol aerosols every 2 hours as needed dyspnea GI: Persistent nausea/vomiting Duodenal diverticulum History of biliary pancreatitis regular diet. Pantoprazole for GI prophylaxis Docusate sodium/senna 1 tablet twice daily for bowel regimen. CT abdomen/pelvis revealed. No definite acute abnormality is seen. 2.2 cm exophytic mass off the inferior left kidney. This may represent a cyst although is nonspecific on this noncontrast CT examination. Degenerative change in lumbar spine. Suspected lipoma at the distal second portion of duodenum and a superiorly directed diverticulum at the proximal third portion the duodenum. Consultation with gastroenterology/Dr. Tipton : voiding on own. Endo: Hypothyroidism Gout Continue levothyroxine 150 mcg p.o. daily Allopurinol 100 mg daily Sliding scale insulin if indicated to maintain euglycemia Renal: Kidney injury acute versus chronic Left renal cyst Avoid nephrotoxic medications Monitor urine output Accurate I's and O's Nephrology consult for assistance with management Heme: Chronic apixaban use Leukocytosis Monitor CBC daily. Follow trends per Continue apixaban 2.5 mg twice daily ID: Monitor for signs and symptomatology infection FEN: Acute hypokalemia- resolved Currently normal saline with 20 mEq s of KCl at 100 cc an hour MSK: Elevated BMI Weight loss encouraged PT evaluate and treat Access -Utilize peripheral IV. Central line if indicated Prophylaxis GI--Pantoprazole DVT - apixaban provides DVT prophylaxis stable for transfer out of ICU. electrolyte replacements improving. no arrhythmias noted. continued work-up of diarrhea by GI.
[2017-12-03] MEDS ORDERED: Potassium Bicarbonate 25 MEQ Effervescent Tablet PO ONE (15:45)
--- NOTE | 2017-12-03 15:59 | P.PN ---
Physical Exam Vital signs: Vital Signs 12/02/17 16:00 12/02/17 17:00 12/02/17 18:00 Temperature 98.4 F Pulse Rate 54 L 50 L 52 L Respiratory Rate 19 21 19 Blood Pressure 90/50 L 87/53 L 86/49 L Pulse Oximetry 96 98 97 12/02/17 18:01 12/02/17 19:00 12/02/17 20:00 Temperature Pulse Rate 52 L 51 L 58 L Respiratory Rate 15 15 20 Blood Pressure 86/49 L 100/58 L Pulse Oximetry 97 98 12/02/17 20:01 12/02/17 20:28 12/02/17 21:00 Temperature 98.3 F Pulse Rate 57 L 53 L 54 L Respiratory Rate 22 18 20 Blood Pressure 101/73 Pulse Oximetry 100 12/02/17 22:00 12/03/17 00:00 12/03/17 02:00 Temperature 98.6 F Pulse Rate 53 L 52 L 53 L Respiratory Rate 21 Blood Pressure 86/50 L Pulse Oximetry 92 L 12/03/17 04:00 12/03/17 06:00 12/03/17 06:59 Temperature 97.8 F Pulse Rate 57 L 50 L 50 L Respiratory Rate 21 Blood Pressure 108/62 Pulse Oximetry 96 12/03/17 08:00 12/03/17 09:00 12/03/17 10:00 Temperature 97.8 F Pulse Rate 50 L 59 L 58 L Respiratory Rate 18 Blood Pressure 109/58 L Pulse Oximetry 96 12/03/17 12:00 12/03/17 14:00 Temperature 98.0 F Pulse Rate 53 L 51 L Respiratory Rate 18 Blood Pressure 103/55 L Pulse Oximetry 98 Intake & Output 12/02/17 12/03/17 12/03/17 18:59 06:59 18:59 Intake Total 1900 / 1900 990 / 990 700 / 700 Output Total 725 / 725 Balance 1175 / 1175 990 / 990 700 / 700 Weight 118 kg Intake: IV 1100 / 1100 540 / 540 700 / 700 Cordarone Inj 450 MG In D5W Inj 240 / 240 241 ML @ 1 MG/MIN 33.33 mls/hr IV.CONT TITRATE PRN Rx#: [id number] NS + KCl 20 mEq Inj 1,000 ML @ 1000 / 1000 300 / 300 700 / 700 50 mls/hr IV.CONT .Q[facility] Rx# :[id number] Oral 800 / 800 450 / 450 Output: Urine 725 / 725 Other: # Voids 3 Date of Last Bowel Movement 12/02/17 12/03/17 12/03/17 # Bowel Movements 4 4 Results - Labs CBC & Chem 7: 12/03/17 04:46 12/03/17 04:46 Laboratory Results - last 24 hr 12/02/17 12/02/17 12/02/17 18:45 23:10 23:10 WBC RBC Hgb Hct MCV MCH MCHC RDW Plt Count MPV Neut % (Auto) Lymph % (Auto) [place] % (Auto) Eos % (Auto) Baso % (Auto) Neut # (Auto) Lymph # (Auto) [place] # (Auto) Eos # (Auto) Baso # (Auto) WBC Differential Differential Comment Sodium Potassium Chloride Carbon Dioxide Anion Gap BUN Creatinine Estimated GFR Random Glucose Lactic Acid Calcium Phosphorus Magnesium Total Bilirubin AST ALT Alkaline Phosphatase Troponin I Total Protein Albumin Urine Color Yellow Urine Clarity Clear Urine pH 5.0 Ur Specific [place] 1.020 Urine Protein Negative Urine Glucose (UA) Negative Urine Ketones Negative Urine Occult Blood Negative Urine Nitrate Negative Urine Bilirubin Negative Urine Urobilinogen Less than 2 Ur Leukocyte Esterase Negative Urine RBC Less than 1 Urine WBC Less than 1 Hyaline Casts 1 Micro UA Comment Culture not ind Ur Microscopic Review Not Reportable Urine Culture Comments Culture not ind Urine Eosinophils None seen Ur Random Creatinine 175 Ur Random Sodium 11 12/03/17 12/03/17 12/03/17 04:46 04:46 04:46 WBC 12.5 H RBC 4.21 L Hgb 13.6 Hct 40.1 MCV 95.3 MCH 32.4 MCHC 34.0 RDW 15.0 Plt Count 185 MPV 9.3 Neut % (Auto) 65.2 Lymph % (Auto) 21.0 [place] % (Auto) 8.3 H Eos % (Auto) 4.9 H Baso % (Auto) 0.6 Neut # (Auto) 8.1 H Lymph # (Auto) 2.6 [place] # (Auto) 1.0 H Eos # (Auto) 0.6 H Baso # (Auto) 0.1 WBC Differential . Differential Comment Auto diff final Sodium 141 Potassium 3.6 Chloride 111 H Carbon Dioxide 21.0 Anion Gap 9 BUN 29 H Creatinine 1.76 H Estimated GFR 38 L Random Glucose 87 Lactic Acid 1.2 Calcium 7.7 L Phosphorus 2.4 L Magnesium 2.0 Total Bilirubin 0.8 AST 17 ALT 23 Alkaline Phosphatase 78 Troponin I 0.08 H Total Protein 5.7 L D Albumin 2.5 L Urine Color Urine Clarity Urine pH Ur Specific [place] Urine Protein Urine Glucose (UA) Urine Ketones Urine Occult Blood Urine Nitrate Urine Bilirubin Urine Urobilinogen Ur Leukocyte Esterase Urine RBC Urine WBC Hyaline Casts Micro UA Comment Ur Microscopic Review Urine Culture Comments Urine Eosinophils Ur Random Creatinine Ur Random Sodium Microbiology 12/02/17 10:50 Stool Cryptosporidium Antigen - Final Negative - No Cryptosporicium antigen detected In selected cases of patients with a history of immunosuppression or foreign travel, a full ova and parasites examination may be desired. Contact the microbiology lab if full workup is indicated and subit another specimen for testing. 12/02/17 10:50 Stool Giardia Antigen (MELY) - Final Negative - No Giardia Antigen detected In selected cases of patients with a history of immunosuppression or foreign travel, a full ova and parasites examination may be desired. Contact the microbiology lab if full workup is indicated and subit another specimen for testing. 12/02/17 10:50 Stool Enteric Pathogens (PCR) - Final No enteric pathogens detected by PCR (No Salmonella sp., Shigella sp., Campylobacter sp., Yersinia enterocolitica, Vibrio sp., Norovirus, or EHEC (Shiga Toxin 1 or Shiga Toxin 2) detected. 12/02/17 10:50 Stool Stool for WBCs - Final No WBC's seen
--- NOTE | 2017-12-03 18:01 | P.PN ---
Subjective Interval history: Feeling fine Physical Exam Vital signs: Vital Signs 12/02/17 18:00 12/02/17 18:01 12/02/17 19:00 Temperature Pulse Rate 52 L 52 L 51 L Respiratory Rate 19 15 15 Blood Pressure 86/49 L 86/49 L 100/58 L Pulse Oximetry 97 97 12/02/17 20:00 12/02/17 20:01 12/02/17 20:28 Temperature 98.3 F Pulse Rate 58 L 57 L 53 L Respiratory Rate 20 22 18 Blood Pressure 101/73 Pulse Oximetry 98 100 12/02/17 21:00 12/02/17 22:00 12/03/17 00:00 Temperature 98.6 F Pulse Rate 54 L 53 L 52 L Respiratory Rate 20 21 Blood Pressure 86/50 L Pulse Oximetry 92 L 12/03/17 02:00 12/03/17 04:00 12/03/17 06:00 Temperature 97.8 F Pulse Rate 53 L 57 L 50 L Respiratory Rate 21 Blood Pressure 108/62 Pulse Oximetry 96 12/03/17 06:59 12/03/17 08:00 12/03/17 09:00 Temperature 97.8 F Pulse Rate 50 L 50 L 59 L Respiratory Rate 18 Blood Pressure 109/58 L Pulse Oximetry 96 12/03/17 10:00 12/03/17 12:00 12/03/17 14:00 Temperature 98.0 F Pulse Rate 58 L 53 L 51 L Respiratory Rate 18 Blood Pressure 103/55 L Pulse Oximetry 98 12/03/17 16:00 Temperature 97.8 F Pulse Rate 52 L Respiratory Rate 22 Blood Pressure 97/55 L Pulse Oximetry 96 Intake & Output 12/02/17 12/03/17 12/03/17 18:59 06:59 18:59 Intake Total 1900 / 1900 990 / 990 700 / 700 Output Total 725 / 725 Balance 1175 / 1175 990 / 990 700 / 700 Weight 118 kg Intake: IV 1100 / 1100 540 / 540 700 / 700 Cordarone Inj 450 MG In D5W Inj 240 / 240 241 ML @ 1 MG/MIN 33.33 mls/hr IV.CONT TITRATE PRN Rx#: [id number] NS + KCl 20 mEq Inj 1,000 ML @ 1000 / 1000 300 / 300 700 / 700 50 mls/hr IV.CONT .Q20H [facility] Rx# :[id number] Oral 800 / 800 450 / 450 Output: Urine 725 / 725 Other: # Voids 3 Date of Last Bowel Movement 12/02/17 12/03/17 12/03/17 # Bowel Movements 4 4 - Constitutional no acute distress - Routine HEENT Exam Head: Present: normocephalic Eye: Present: PERRL ENT: Present: mucous membranes moist - Routine Respiratory Exam Present: CTA bilaterally - Routine Cardiovascular Exam Present: RRR - Routine Abdominal Exam Present: soft - Routine Neurological Exam Present: alert, oriented X3 - Detailed Neurological Exam: Coma Scale Eye Opening: Spontaneous Results - Labs CBC & Chem 7: 12/03/17 04:46 12/03/17 04:46 Laboratory Results - last 24 hr 12/02/17 12/02/17 12/02/17 18:45 23:10 23:10 WBC RBC Hgb Hct MCV MCH MCHC RDW Plt Count MPV Neut % (Auto) Lymph % (Auto) [place] % (Auto) Eos % (Auto) Baso % (Auto) Neut # (Auto) Lymph # (Auto) [place] # (Auto) Eos # (Auto) Baso # (Auto) WBC Differential Differential Comment Sodium Potassium Chloride Carbon Dioxide Anion Gap BUN Creatinine Estimated GFR Random Glucose Lactic Acid Calcium Phosphorus Magnesium Total Bilirubin AST ALT Alkaline Phosphatase Troponin I Total Protein Albumin Urine Color Yellow Urine Clarity Clear Urine pH 5.0 Ur Specific [place] 1.020 Urine Protein Negative Urine Glucose (UA) Negative Urine Ketones Negative Urine Occult Blood Negative Urine Nitrate Negative Urine Bilirubin Negative Urine Urobilinogen Less than 2 Ur Leukocyte Esterase Negative Urine RBC Less than 1 Urine WBC Less than 1 Hyaline Casts 1 Micro UA Comment Culture not ind Ur Microscopic Review Not Reportable Urine Culture Comments Culture not ind Urine Eosinophils None seen Ur Random Creatinine 175 Ur Random Sodium 11 12/03/17 12/03/17 12/03/17 04:46 04:46 04:46 WBC 12.5 H RBC 4.21 L Hgb 13.6 Hct 40.1 MCV 95.3 MCH 32.4 MCHC 34.0 RDW 15.0 Plt Count 185 MPV 9.3 Neut % (Auto) 65.2 Lymph % (Auto) 21.0 [place] % (Auto) 8.3 H Eos % (Auto) 4.9 H Baso % (Auto) 0.6 Neut # (Auto) 8.1 H Lymph # (Auto) 2.6 [place] # (Auto) 1.0 H Eos # (Auto) 0.6 H Baso # (Auto) 0.1 WBC Differential . Differential Comment Auto diff final Sodium 141 Potassium 3.6 Chloride 111 H Carbon Dioxide 21.0 Anion Gap 9 BUN 29 H Creatinine 1.76 H Estimated GFR 38 L Random Glucose 87 Lactic Acid 1.2 Calcium 7.7 L Phosphorus 2.4 L Magnesium 2.0 Total Bilirubin 0.8 AST 17 ALT 23 Alkaline Phosphatase 78 Troponin I 0.08 H Total Protein 5.7 L D Albumin 2.5 L Urine Color Urine Clarity Urine pH Ur Specific [place] Urine Protein Urine Glucose (UA) Urine Ketones Urine Occult Blood Urine Nitrate Urine Bilirubin Urine Urobilinogen Ur Leukocyte Esterase Urine RBC Urine WBC Hyaline Casts Micro UA Comment Ur Microscopic Review Urine Culture Comments Urine Eosinophils Ur Random Creatinine Ur Random Sodium Microbiology 12/02/17 10:50 Stool Cryptosporidium Antigen - Final Negative - No Cryptosporicium antigen detected In selected cases of patients with a history of immunosuppression or foreign travel, a full ova and parasites examination may be desired. Contact the microbiology lab if full workup is indicated and subit another specimen for testing. 12/02/17 10:50 Stool Giardia Antigen (EMLY) - Final Negative - No Giardia Antigen detected In selected cases of patients with a history of immunosuppression or foreign travel, a full ova and parasites examination may be desired. Contact the microbiology lab if full workup is indicated and subit another specimen for testing. 12/02/17 10:50 Stool Enteric Pathogens (PCR) - Final No enteric pathogens detected by PCR (No Salmonella sp., Shigella sp., Campylobacter sp., Yersinia enterocolitica, Vibrio sp., Norovirus, or EHEC (Shiga Toxin 1 or Shiga Toxin 2) detected. 12/02/17 10:50 Stool Stool for WBCs - Final No WBC's seen Assessment and Plan - Assessment (1) Ventricular tachycardia Code(s): I47.2 - Ventricular tachycardia Status: Acute Plan: Stable. No new episode of VT. Amio will be DC Electrolytes had been replaced Continue with current management Ok to transfer to a stepdown unit (2) Acute hypokalemia Code(s): E87.6 - Hypokalemia Status: Acute Plan: K+ is being replaced Doing better (3) Heart failure, unspecified Code(s): I50.9 - Heart failure, unspecified Status: Acute Plan: No SOB On optimal medical management
--- NOTE | 2017-12-03 18:53 | MB ---
cc: Maryam Piper MD DATE: 12/02/2017 REASON FOR CONSULTATION: Ventricular tachycardia HISTORY OF PRESENT ILLNESS: Mr. Jo is a 77-year-old gentleman with a history of coronary artery disease, atrial fibrillation, congestive heart failure. He had a previous defibrillator implanted. He was having nausea and vomiting as well as diarrhea for the past 2-3 days. He was at home. He called his doctor for an appointment. Subsequently, he received 2 or 3 defibrillatory shocks. He decided to come to the emergency room. He received 2 more defibrillatory shocks. Interrogation of the device indicated appropriate shocks. The patient's electrolytes were severely abnormal. The patient was dehydrated. Amiodarone was initiated and IV fluids given. I was consulted for evaluation and management. The chart was reviewed. The patient was evaluated. ALLERGIES: NONE. SOCIAL HISTORY: Negative for smoking and drinking. FAMILY HISTORY: Noncontributory to his current medical condition. MEDICATIONS: He is on: 1. Allopurinol. 2. Eliquis. 3. Lipitor 80 mg a day. 4. Magnesium. 5. Potassium. 6. Entresto. 7. Amiodarone IV was added. REVIEW OF SYSTEMS: The patient refers feeling better. No chest pain noted or discomfort. No further shocks. No fever. PHYSICAL EXAMINATION: GENERAL: Alert, fully oriented. VITAL SIGNS: Blood pressure on evaluation 90/50, pulse 54, respiratory rate 18. LUNGS: Ventilated. CARDIOVASCULAR: S1, S2. No gallop. No murmur. ABDOMEN: Obese. No masses. No bruits. EXTREMITIES: No edema. DIAGNOSTIC DATA: Electrocardiogram apparently with sinus rhythm, PACs, A pacing beats, diffuse ST changes. LABORATORY DATA: Hemoglobin 15.1, white blood cells 13.3. Potassium 3.7, creatinine 2.20. Troponin 0.11. Magnesium 2.3. On hospitalization, potassium was 2.8, magnesium was 1.8, sodium was 135, creatinine was 2.58. ASSESSMENT AND RECOMMENDATIONS: Mr. Jo is stable. No chest pain. No palpitations. No further defibrillatory shocks. Device interrogated and is well functioning. Troponin is only 0.11 with a creatinine of 2.2. Apparently, the defibrillatory shocks were more due to electrolyte imbalance with the diarrhea as well as vomiting. At this point, my recommendations are to continue electrolyte replacement, intravenous fluid. The patient is on amiodarone. If stable, I will discontinue that in the morning. Case extensively discussed with him. I will follow him during the hospitalization. MD REBECCA Ray/debbi , 06:02 PM , 06:12 PM
--- NOTE | 2017-12-03 18:53 | P.PNNP ---
Subjective Interval history: Renal function has improved. Hypokalemia has improved as well. No more episodes of Ventricular tachycardia. Physical Exam Vital signs: Vital Signs 12/02/17 19:00 12/02/17 20:00 12/02/17 20:01 Temperature 98.3 F Pulse Rate 51 L 58 L 57 L Respiratory Rate 15 20 22 Blood Pressure 100/58 L 101/73 Pulse Oximetry 98 12/02/17 20:28 12/02/17 21:00 12/02/17 22:00 Temperature Pulse Rate 53 L 54 L 53 L Respiratory Rate 18 20 Blood Pressure Pulse Oximetry 100 12/03/17 00:00 12/03/17 02:00 12/03/17 04:00 Temperature 98.6 F 97.8 F Pulse Rate 52 L 53 L 57 L Respiratory Rate 21 21 Blood Pressure 86/50 L 108/62 Pulse Oximetry 92 L 96 12/03/17 06:00 12/03/17 06:59 12/03/17 08:00 Temperature 97.8 F Pulse Rate 50 L 50 L 50 L Respiratory Rate 18 Blood Pressure 109/58 L Pulse Oximetry 96 12/03/17 09:00 12/03/17 10:00 12/03/17 12:00 Temperature 98.0 F Pulse Rate 59 L 58 L 53 L Respiratory Rate 18 Blood Pressure 103/55 L Pulse Oximetry 98 12/03/17 14:00 12/03/17 16:00 Temperature 97.8 F Pulse Rate 51 L 52 L Respiratory Rate 22 Blood Pressure 97/55 L Pulse Oximetry 96 Intake & Output 12/02/17 12/03/17 12/03/17 18:59 06:59 18:59 Intake Total 1900 / 1900 990 / 990 700 / 700 Output Total 725 / 725 Balance 1175 / 1175 990 / 990 700 / 700 Weight 118 kg Intake: IV 1100 / 1100 540 / 540 700 / 700 Cordarone Inj 450 MG In D5W Inj 240 / 240 241 ML @ 1 MG/MIN 33.33 mls/hr IV.CONT TITRATE PRN Rx#: [id number] NS + KCl 20 mEq Inj 1,000 ML @ 1000 / 1000 300 / 300 700 / 700 50 mls/hr IV.CONT .Q20H [facility] Rx# :[id number] Oral 800 / 800 450 / 450 Output: Urine 725 / 725 Other: # Voids 3 Date of Last Bowel Movement 12/02/17 12/03/17 12/03/17 # Bowel Movements 4 4 - Constitutional no acute distress - Routine HEENT Exam Head: Present: normocephalic, atraumatic Eye: Present: EOMI, PERRL ENT: Present: mucous membranes moist - Routine Neck Exam Present: supple, full ROM. Absent: JVD - Routine Respiratory Exam Present: CTA bilaterally - Routine Cardiovascular Exam Present: RRR, S1, S2 - Routine Abdominal Exam Present: soft, normoactive bowel sounds - Routine Extremities Exam Absent: edema - Routine Skin Exam Present: intact - Routine Neurological Exam Present: alert, oriented X3, CN II-XII intact Assessment and Plan - Assessment (1) Acute kidney injury Code(s): N17.9 - Acute kidney failure, unspecified Status: Acute Plan: patient's renal function has improved, likely had developed pre-renal azotemia. He continues to have diarrhea, continue IVF for the time being. Avoid nephrotoxic agents. (2) Ventricular tachycardia Code(s): I47.2 - Ventricular tachycardia Status: Acute Plan: patient is s/p AICD placement. Cardiology consulted. (3) Acute hypokalemia Code(s): E87.6 - Hypokalemia Status: Acute Plan: Patient was on Lasix, also had developed GI symptoms. Hypokalemia has improved. Replace as needed. (4) Heart failure, unspecified Code(s): I50.9 - Heart failure, unspecified Status: Acute Plan: monitor fluid and electrolytes. He was on Entresto.
[2017-12-03] MEDS: Allopurinol 100 MG Tablet PO SCH (21:33)
[2017-12-03] MEDS: Bismuth Subsalicylate Susp 240 ML Bottle PO SCH (21:36)
--- NOTE | 2017-12-03 22:56 | MB ---
cc: Roberth Chance MD,Chaka Tipton,Jeremy Casey,Lesa Jon MD DATE: 12/03/2017 REASON FOR VISIT: I am asked to see the patient at the request of Dr. Nazario for evaluation of diarrhea. HISTORY OF PRESENT ILLNESS: The patient is a pleasant 77-year-old white male who has been followed by Dr. Tipton in her office. He has a known history of adenomatous colon polyps and he was recently seen in the office with episodes of diarrhea. He did get cholestyramine and Flagyl without much relief. The patient had a colonoscopy in the last month and the exam was significant for diverticulosis and a polyp in the ascending colon. Biopsies were significant for what appears to be lymphocytic colitis. The patient was supposed to follow up in the office, but he got admitted to the hospital. Apparently, the patient has an AICD and it has been repeatedly going off. He reported nausea and vomiting but better now. He is still having episodes of loose stools. No blood is noted in the stools. No abdominal pain, heartburn, problems swallowing, melena or hematochezia. His potassium was low but has been corrected. He has been seen by cardiology as well as nephrology. His renal function is elevated. PAST MEDICAL HISTORY: Significant for dyslipidemia. He has an AICD/pacemaker. He has had atrial fibrillation, gout, hypertension, benign prostatic hypertrophy, allergic asthma, dyslipidemia, pneumonia, hypothyroidism. He has had an adenomatous polyp with dysplasia, diverticulosis, recent diagnosis of lymphocytic colitis. According to old record, he may have had a history of gallstone pancreatitis in the past. PAST SURGICAL HISTORY: Includes cholecystectomy, heart ablation, AICD/pacemaker. SOCIAL HISTORY: He smoked in the past, nothing significant. No significant alcohol intake. FAMILY HISTORY: The patient's father had colon cancer in his 60s. A brother had stomach cancer. A sister had breast cancer, ovarian cancer. REVIEW OF SYSTEMS: CONSTITUTIONAL: No weight loss, fever or chills. CARDIOPULMONARY: No chest pain, palpitations, wheezing or shortness of breath. GASTROINTESTINAL: Please see above. Otherwise, unremarkable 12-point review of systems. MEDICATIONS IN THE HOSPITAL: 1. Tylenol. 2. Milk of magnesia as needed. 3. Albuterol. 4. Zyloprim. 5. Amiodarone. 6. Eliquis. 7. Lipitor. 8. Dulcolax as needed. 9. Coreg. 10. Lactulose as needed. 11. Synthroid. 12. Morphine. 13. Zofran. 14. Entresto. 15. He is on Emely-Colace also, but it has been held. 16. Senokot as needed. 17. Restoril. 18. Hytrin. 19. He was also given potassium. ALLERGIES: NO KNOWN DRUG ALLERGIES. PHYSICAL EXAMINATION: VITAL SIGNS: Blood pressure 121/156, respiratory rate 13, pulse 50, temperature 98.2. GENERAL: He is an overweight white male resting comfortably at this time. When I first walked in the room, he was angry that he was not seen earlier in the day (apparently he had called the office) but I explained that I did not get the consult until the evening hours and I came to see him right afterwards. This seemed to calm him down, and after a long discussion, he calmed down and he was much more comfortable. He appears in no acute GI distress at this time. HEENT: Pupils are equal and reactive to light. No obvious icterus. Oropharyngeal cavity shows dental caries. No tongue deviation or Candidal lesions. Hearing is intact. NECK: Supple without thyromegaly or lymphadenopathy. LUNGS: Clear to auscultation. HEART: Irregular rhythm. No gross murmurs are heard. ABDOMEN: Soft, protuberant, nondistended, nontender. No organomegaly or masses. No ascites or hernias. Bowel sounds are positive in all 4 quadrants. RECTAL: Not done. EXTREMITIES: No cyanosis, clubbing or edema. NEUROLOGIC: His cranial nerves 2-12 are grossly intact. No gross sensory or motor deficits. SKIN: Warm and moist. DATABASE: His white blood cell count when he first came in was 13,100, hemoglobin 16, hematocrit 47.4, MCV 95.4, platelet count 242,000. Today, his white blood cell count is 12,500, hemoglobin 13.6. Prothrombin time 11, INR 1.1, PTT 24. Potassium was 2.8 on admission, now is 3.6. Sodium is 141 now. It was 135 on admission. On admission, BUN was 54, creatinine 2.58. Today, BUN is 29 and creatinine is 1.76. Total bilirubin 0.8, SGOT 17, SGPT 23, alkaline phosphatase 78. Troponins have been slightly elevated. Amylase is 33. Stool C. difficile DNA negative. A CT scan of the abdomen and pelvis done without contrast revealed no definite abnormalities. There appears to be a mass in the inferior left kidney, but it is nonspecific and with a noncontrast exam. The primary service is aware of this. There is some degenerative change in the lumbar spine. There is a lipoma in the distal second portion of the duodenum and there is also diverticulum in the third portion of the duodenum. IMPRESSION: 1. Lymphocytic colitis. This is typically seen in elderly women who take aspirin and nonsteroidal anti-inflammatory drugs. It can also be due to a virus. He does not recall any viruses or taking a lot of nonsteroidal anti-inflammatory drugs. The lymphocytic colitis, I believe, is causing his diarrhea. What caused his nausea and vomiting is unclear, but it appears to better at this time. 2. Diarrhea. See above discussion. 3. Ventricular tachycardia. He has had numerous shocks from his automatic implantable cardioverter-defibrillator. 4. Renal insufficiency. He has been seen by nephrology. RECOMMENDATIONS: 1. The patient understands the first line treatment for lymphocytic colitis is budesonide. Unfortunately, it is nonformulary at this hospital. I did talk to the pharmacist and they could not give me an answer whether they could get it or not, but they are going to call me back tomorrow morning. Other treatments which are not first line are mesalamine as well as Flagyl and cholestyramine. He has already been on Flagyl and cholestyramine as an outpatient without relief. Mesalamine can be used; however, it only works in a small percentage of patients and I am hesitant to use it with his elevated creatinine. In general, prednisone does not really help in this situation. Other treatments includes Imodium as well as Pepto-Bismol. He has tried Imodium without relief. I will start some Pepto-Bismol tonight in hopes to make him feel better until we can find out whether we can get the budesonide. In regard to the budesonide, he does not know if he can afford this is an outpatient either. The side effects of it were discussed. It is a steroid. 2. Continue replacement therapy in regard to his potassium and IV fluids. 3. Further recommendations depend on how he does. Roberth Chance MD SPP/jl , 08:15 PM , 08:33 PM
[2017-12-04] MEDS: Chlorhexidine Gluconate 2% 1 Pack (2 Cloths) TOPICAL SCH (02:59)
[2017-12-04] MEDS ORDERED: Sod Chloride 0.9% Inj 1,000 ML IV.SIG SCH (03:00)
[2017-12-04] MEDS: Levothyroxine 150 MCG Tablet PO SCH (06:03)
[2017-12-04 06:27] LABS: Hemoglobin 13.3 gm/dL (13.0-17.0); Mean Corpuscular HGB Conc 33.3 % (32.0-36.0); Mean Corpuscular Hemoglobin 32.1 pg (27.0-34.0); Mean Corpuscular Volume 96.3 fL (80.0-100.0); Mean Platelet Volume 9.4 fL (7.0-11.0); Platelet Count 174 th/mm3 (150-450); Red Blood Count 4.15 mil/mm3 (4.50-5.90); White Blood Count 11.8 th/mm3 (4.0-11.0)
[2017-12-04 07:07] LABS: Albumin 2.4 g/dL (3.4-5.0); Calcium 7.6 mg/dL (8.5-10.1); Carbon Dioxide 23.4 meq/L (21.0-32.0); Magnesium 1.9 mg/dL (1.5-2.5); Phosphorus 2.4 mg/dL (2.5-4.9); Potassium 3.6 meq/L (3.5-5.1)
--- NOTE | 2017-12-04 09:49 | P.PNGI ---
Subjective Interval history: Patient having postprandial diarrhea and loose stools. Has not gotten the Pepto -Bismol yet. Pharmacy does not have the medication I want to useits nonformulary. We do have some samples in the office. We will bring them in Physical Exam Vital signs: Vital Signs 12/03/17 10:00 12/03/17 12:00 12/03/17 14:00 Temperature 98.0 F Pulse Rate 58 L 53 L 51 L Respiratory Rate 18 Blood Pressure 103/55 L Pulse Oximetry 98 12/03/17 16:00 12/03/17 18:00 12/03/17 18:51 Temperature 97.8 F Pulse Rate 52 L 58 L 51 L Respiratory Rate 22 14 Blood Pressure 97/55 L Pulse Oximetry 96 12/03/17 18:53 12/03/17 20:00 12/03/17 20:15 Temperature 98.2 F 98.2 F Pulse Rate 50 L 55 L Respiratory Rate 13 16 Blood Pressure 121/56 L 99/59 L Pulse Oximetry 98 96 99 12/03/17 21:00 12/03/17 22:00 12/03/17 23:00 Temperature Pulse Rate 50 L 59 L 59 L Respiratory Rate Blood Pressure Pulse Oximetry 12/04/17 00:00 12/04/17 01:00 12/04/17 02:00 Temperature 98.3 F Pulse Rate 58 L 57 L 55 L Respiratory Rate 17 Blood Pressure 80/46 L Pulse Oximetry 96 12/04/17 03:00 12/04/17 04:00 12/04/17 05:00 Temperature 98.2 F Pulse Rate 68 76 61 Respiratory Rate 18 Blood Pressure 94/41 L Pulse Oximetry 96 12/04/17 06:00 12/04/17 07:00 Temperature Pulse Rate 64 73 Respiratory Rate Blood Pressure Pulse Oximetry Intake & Output 12/03/17 12/04/17 12/04/17 18:59 06:59 18:59 Intake Total 1500 / 1500 490 / 490 Balance 1500 / 1500 490 / 490 Weight 117.5 kg Intake: IV 700 / 700 250 / 250 Cordarone Inj 450 MG In D5W Inj 250 / 250 241 ML @ 1 MG/MIN 33.33 mls/hr IV.CONT TITRATE PRN Rx#: [id number] NS + KCl 20 mEq Inj 1,000 ML @ 700 / 700 50 mls/hr IV.CONT .Q20H [facility] Rx# :[id number] Oral 800 / 800 240 / 240 Other: # Voids 3 2 Date of Last Bowel Movement 12/03/17 12/04/17 # Bowel Movements 4 2 - Constitutional no acute distress - Routine HEENT Exam ENT: Present: mucous membranes moist - Routine Neck Exam Present: supple - Routine Respiratory Exam Present: CTA bilaterally - Routine Cardiovascular Exam Present: irregularly irregular - Routine Abdominal Exam Present: soft, normoactive bowel sounds. Absent: tenderness, organomegaly - Routine Extremities Exam Absent: clubbing - Routine Neurological Exam Present: alert, oriented X3 Results - Labs CBC & Chem 7: 12/04/17 05:09 12/04/17 05:09 Laboratory Results - last 24 hr 12/04/17 12/04/17 05:09 05:09 WBC 11.8 H RBC 4.15 L Hgb 13.3 Hct 40.0 MCV 96.3 MCH 32.1 MCHC 33.3 RDW 15.0 Plt Count 174 MPV 9.4 Sodium 143 Potassium 3.6 Chloride 112 H Carbon Dioxide 23.4 Anion Gap 8 BUN 23 H Creatinine 1.62 H Estimated GFR 42 L Random Glucose 97 Calcium 7.6 L Phosphorus 2.4 L Magnesium 1.9 Albumin 2.4 L Microbiology 12/02/17 10:50 Stool Cryptosporidium Antigen - Final Negative - No Cryptosporicium antigen detected In selected cases of patients with a history of immunosuppression or foreign travel, a full ova and parasites examination may be desired. Contact the microbiology lab if full workup is indicated and subit another specimen for testing. 12/02/17 10:50 Stool Giardia Antigen (MELY) - Final Negative - No Giardia Antigen detected In selected cases of patients with a history of immunosuppression or foreign travel, a full ova and parasites examination may be desired. Contact the microbiology lab if full workup is indicated and subit another specimen for testing. Assessment and Plan - Attending Attestation IMPRESSION: 1. Lymphocytic colitis--I suspect this is the cause of his diarrhea 2. Diarrhea. Still having some loose stools this morning. Nausea and vomiting has result 3. Ventricular tachycardia. He has had numerous shocks from his automatic implantable cardioverter-defibrillator. 4. Renal insufficiency. He has been seen by nephrology. RECOMMENDATIONS: 1. Please see consultation for discussion of treatment options. We do have Uceris samples in the office and will bring them them in. He understands this is a weak steroid and we talked about the side effects. The dose is 9 mg daily (1 pill daily). This is nonformulary at this hospital. I will drop off samples 2. Continue replacement therapy in regard to his potassium and IV fluids. 3. Further recommendations depend on how he does.
[2017-12-04] MEDS: Bismuth Subsalicylate Susp 240 ML Bottle PO SCH ×2 (10:36→15:21)
[2017-12-04] MEDS: Senna/Docusate Sodium 8.6/50 MG Tablet PO SCH ×2 (10:37→21:48)
[2017-12-04] MEDS: Carvedilol 12.5 MG Tablet PO SCH (10:37)
--- NOTE | 2017-12-04 15:44 | P.PNIM ---
Subjective Interval history: Patient reports persistent diarrhea. No nausea or vomiting. No other episodes of AICD firing. Physical Exam Vital signs: Vital Signs 12/03/17 16:00 12/03/17 18:00 12/03/17 18:51 Temperature 97.8 F Pulse Rate 52 L 58 L 51 L Respiratory Rate 22 14 Blood Pressure 97/55 L Pulse Oximetry 96 12/03/17 18:53 12/03/17 20:00 12/03/17 20:15 Temperature 98.2 F 98.2 F Pulse Rate 50 L 55 L Respiratory Rate 13 16 Blood Pressure 121/56 L 99/59 L Pulse Oximetry 98 96 99 12/03/17 21:00 12/03/17 22:00 12/03/17 23:00 Temperature Pulse Rate 50 L 59 L 59 L Respiratory Rate Blood Pressure Pulse Oximetry 12/04/17 00:00 12/04/17 01:00 12/04/17 02:00 Temperature 98.3 F Pulse Rate 58 L 57 L 55 L Respiratory Rate 17 Blood Pressure 80/46 L Pulse Oximetry 96 12/04/17 03:00 12/04/17 04:00 12/04/17 05:00 Temperature 98.2 F Pulse Rate 68 76 61 Respiratory Rate 18 Blood Pressure 94/41 L Pulse Oximetry 96 12/04/17 06:00 12/04/17 07:00 12/04/17 08:00 Temperature 98.1 F Pulse Rate 64 83 56 L Respiratory Rate 16 18 Blood Pressure 91/58 L Pulse Oximetry 98 Intake & Output 12/03/17 12/04/17 12/04/17 18:59 06:59 18:59 Intake Total 1500 / 1500 490 / 490 Balance 1500 / 1500 490 / 490 Weight 117.5 kg Intake: IV 700 / 700 250 / 250 Cordarone Inj 450 MG In D5W Inj 250 / 250 241 ML @ 1 MG/MIN 33.33 mls/hr IV.CONT TITRATE PRN Rx#: [id number] NS + KCl 20 mEq Inj 1,000 ML @ 700 / 700 50 mls/hr IV.CONT .Q20H [facility] Rx# :[id number] Oral 800 / 800 240 / 240 Other: # Voids 3 2 Date of Last Bowel Movement 12/03/17 12/04/17 12/04/17 # Bowel Movements 4 2 Narrative: GENERAL: This is a well-nourished, well-developed patient, in no apparent distress. CARDIOVASCULAR: Normal rate and regular rhythm without murmurs, gallops, or rubs. RESPIRATORY: Good respiratory efforts. Breath sounds equal and clear to auscultation bilaterally. GASTROINTESTINAL: Abdomen soft, non-tender, non-distended. Normal active bowel sounds MUSCULOSKELETAL: Extremities without cyanosis, or edema. NEURO: Alert & Oriented x4 to person, place, time, situation. Moves all ext x4 PSYCH: Appropriate mood and affect. Results - Labs CBC & Chem 7: 12/04/17 05:09 12/04/17 05:09 Laboratory Results - last 24 hr 12/04/17 12/04/17 05:09 05:09 WBC 11.8 H RBC 4.15 L Hgb 13.3 Hct 40.0 MCV 96.3 MCH 32.1 MCHC 33.3 RDW 15.0 Plt Count 174 MPV 9.4 Sodium 143 Potassium 3.6 Chloride 112 H Carbon Dioxide 23.4 Anion Gap 8 BUN 23 H Creatinine 1.62 H Estimated GFR 42 L Random Glucose 97 Calcium 7.6 L Phosphorus 2.4 L Magnesium 1.9 Albumin 2.4 L Assessment and Plan - Plan 77-year-old male who presented to the hospital after multiple AICD firing. The patient has been having worsening diarrhea, persistent nausea and vomiting which subsequently resolved and severe electrolyte abnormalities. He was admitted to the ICU. He is transferred to the hospitalist service. V. tach likely secondary to severe hypokalemia Status post AICD Essential hypertension Hyperlipidemia Elevated troponin Patient with a [facility] AICD. Interrogation 12/01 revealed 5 episodes of V. tach with successful cardioversion Cardiology consultation with Dr. Piper Currently on amiodarone drip at 0.5 mg/min per protocol. Plan to discontinue amiodarone drip today per cardiology. Continue carvedilol 12.5 mg daily/home medication for hypertension along with trazodone 1 mg daily Continue atorvastatin 80 mg daily for dyslipidemia. Currently holding sacubitril/valsartan 2 06/11 1 tablet daily Continue Eliquis for A. fib. Lymphocytic colitis: -Appreciate GI following. First-line treatment is budesonide which is not available in the hospital. Dr. Martin kindly is providing samples from his office to help treat the patient -Continue to monitor. IV fluid support. Hypothyroidism Gout Continue levothyroxine 150 mcg p.o. daily Allopurinol 100 mg daily Sliding scale insulin if indicated to maintain euglycemia Kidney injury acute versus chronic Left renal cyst Acute hypokalemia -Appreciate nephrology following. AK I likely secondary to prerenal azotemia. Renal functions improving. - Hypokalemia resolved. Prophylaxis GI--Pantoprazole DVT - apixaban provides DVT prophylaxis
--- NOTE | 2017-12-04 16:11 | P.PNNP ---
Subjective Interval history: Renal function continues to improve. Patient is without specific complaints. Physical Exam Vital signs: Vital Signs 12/03/17 18:00 12/03/17 18:51 12/03/17 18:53 Temperature Pulse Rate 58 L 51 L Respiratory Rate 14 Blood Pressure Pulse Oximetry 98 12/03/17 20:00 12/03/17 20:15 12/03/17 21:00 Temperature 98.2 F 98.2 F Pulse Rate 50 L 55 L 50 L Respiratory Rate 13 16 Blood Pressure 121/56 L 99/59 L Pulse Oximetry 96 99 12/03/17 22:00 12/03/17 23:00 12/04/17 00:00 Temperature 98.3 F Pulse Rate 59 L 59 L 58 L Respiratory Rate 17 Blood Pressure 80/46 L Pulse Oximetry 96 12/04/17 01:00 12/04/17 02:00 12/04/17 03:00 Temperature Pulse Rate 57 L 55 L 68 Respiratory Rate Blood Pressure Pulse Oximetry 12/04/17 04:00 12/04/17 05:00 12/04/17 06:00 Temperature 98.2 F Pulse Rate 76 61 64 Respiratory Rate 18 Blood Pressure 94/41 L Pulse Oximetry 96 12/04/17 07:00 12/04/17 08:00 Temperature 98.1 F Pulse Rate 83 56 L Respiratory Rate 16 18 Blood Pressure 91/58 L Pulse Oximetry 98 Intake & Output 12/03/17 12/04/17 12/04/17 18:59 06:59 18:59 Intake Total 1500 / 1500 490 / 490 Balance 1500 / 1500 490 / 490 Weight 117.5 kg Intake: IV 700 / 700 250 / 250 Cordarone Inj 450 MG In D5W Inj 250 / 250 241 ML @ 1 MG/MIN 33.33 mls/hr IV.CONT TITRATE PRN Rx#: [id number] NS + KCl 20 mEq Inj 1,000 ML @ 700 / 700 50 mls/hr IV.CONT .Q20H [facility] Rx# :[id number] Oral 800 / 800 240 / 240 Other: # Voids 3 2 Date of Last Bowel Movement 12/03/17 12/04/17 12/04/17 # Bowel Movements 4 2 - Constitutional no acute distress - Routine HEENT Exam Head: Present: normocephalic, atraumatic Eye: Present: EOMI, PERRL - Routine Neck Exam Present: supple, full ROM. Absent: JVD, lymphadenopathy, thyromegaly - Routine Respiratory Exam Present: CTA bilaterally - Routine Cardiovascular Exam Present: RRR, S1, S2 - Routine Abdominal Exam Present: soft, normoactive bowel sounds - Routine Extremities Exam Absent: edema - Routine Skin Exam Present: intact - Routine Neurological Exam Present: alert, oriented X3 Assessment and Plan - Assessment (1) Acute kidney injury Code(s): N17.9 - Acute kidney failure, unspecified Status: Acute Plan: patient's renal function has improved, likely had developed pre-renal azotemia. He continues to have diarrhea, seen by GI, note was reviewed. Apparently has lymphocytic colitis. (2) Ventricular tachycardia Code(s): I47.2 - Ventricular tachycardia Status: Acute Plan: patient is s/p AICD discharges. Cardiology consulted. (3) Acute hypokalemia Code(s): E87.6 - Hypokalemia Status: Acute Plan: Patient was on Lasix, also had developed GI symptoms. Hypokalemia has improved. Replace as needed. (4) Heart failure, unspecified Code(s): I50.9 - Heart failure, unspecified Status: Acute Plan: monitor fluid and electrolytes. He was on Entresto.
[2017-12-04] MEDS: BUDESONIDE 9 MG PO SCH (17:15)
[2017-12-04] MEDS ORDERED: Sodium Chlor 0.9% Inj 500 ML IV.SIG SCH (19:27)
[2017-12-04] MEDS: Allopurinol 100 MG Tablet PO SCH (21:45)
[2017-12-04 23:41] LABS: Albumin 2.4 g/dL (3.4-5.0); Calcium 7.4 mg/dL (8.5-10.1); Carbon Dioxide 20.3 meq/L (21.0-32.0); Potassium 3.5 meq/L (3.5-5.1)
[2017-12-05] MEDS: Levothyroxine 150 MCG Tablet PO SCH (05:49)
[2017-12-05] MEDS: Chlorhexidine Gluconate 2% 1 Pack (2 Cloths) TOPICAL SCH (05:52)
[2017-12-05 06:33] LABS: Hematocrit 39.4 % (39.0-51.0); Hemoglobin 12.9 gm/dL (13.0-17.0); Mean Corpuscular HGB Conc 32.8 % (32.0-36.0); Mean Corpuscular Hemoglobin 31.9 pg (27.0-34.0); Mean Corpuscular Volume 97.3 fL (80.0-100.0); Mean Platelet Volume 9.8 fL (7.0-11.0); Platelet Count 148 th/mm3 (150-450); Red Blood Count 4.05 mil/mm3 (4.50-5.90); Red Cell Distribution Width 14.9 % (11.6-17.2); White Blood Count 11.9 th/mm3 (4.0-11.0)
[2017-12-05 06:59] LABS: Calcium 7.6 mg/dL (8.5-10.1); Carbon Dioxide 22.3 meq/L (21.0-32.0); Magnesium 1.7 mg/dL (1.5-2.5); Phosphorus 2.4 mg/dL (2.5-4.9); Potassium 3.5 meq/L (3.5-5.1)
[2017-12-05] MEDS: Carvedilol 12.5 MG Tablet PO SCH (09:23)
[2017-12-05] MEDS: Senna/Docusate Sodium 8.6/50 MG Tablet PO SCH (09:27)
[2017-12-05] MEDS: BUDESONIDE 9 MG PO SCH (09:29)
[2017-12-05] MEDS ORDERED: BUDESONIDE 9 MG PO SCH (12:00)
--- NOTE | 2017-12-05 12:22 | P.PNNP ---
Subjective Interval history: No acute complaints Physical Exam Vital signs: Vital Signs 12/04/17 13:00 12/04/17 14:00 12/04/17 15:00 Temperature Pulse Rate 60 58 L 62 Respiratory Rate Blood Pressure Pulse Oximetry 12/04/17 16:00 12/04/17 17:00 12/04/17 18:00 Temperature 98.5 F Pulse Rate 58 L 58 L 60 Respiratory Rate 16 Blood Pressure 70/41 L Pulse Oximetry 100 12/04/17 19:00 12/04/17 20:00 12/04/17 21:00 Temperature 98.6 F Pulse Rate 59 L 60 58 L Respiratory Rate 16 Blood Pressure 100/60 Pulse Oximetry 98 12/04/17 21:05 12/04/17 22:00 12/04/17 23:00 Temperature Pulse Rate 54 L 58 L 59 L Respiratory Rate 16 Blood Pressure Pulse Oximetry 96 12/05/17 00:00 12/05/17 01:00 12/05/17 02:00 Temperature Pulse Rate 60 62 58 L Respiratory Rate 16 Blood Pressure 90/55 L Pulse Oximetry 96 12/05/17 03:00 12/05/17 04:00 12/05/17 05:00 Temperature Pulse Rate 59 L 58 L 58 L Respiratory Rate 16 Blood Pressure 109/67 Pulse Oximetry 97 12/05/17 06:00 12/05/17 07:00 12/05/17 08:00 Temperature 99.2 F Pulse Rate 60 61 61 Respiratory Rate 20 Blood Pressure 104/60 Pulse Oximetry 12/05/17 11:13 Temperature Pulse Rate Respiratory Rate Blood Pressure Pulse Oximetry 96 Intake & Output 12/04/17 12/05/17 12/05/17 18:59 06:59 18:59 Intake Total 1480 / 1480 Balance 1480 / 1480 Weight 117.9 kg Intake: IV 1000 / 1000 LR 1000 mL Inj 1,000 ML @ 100 1000 / 1000 mls/hr IV.CONT .Q10H [facility] Rx#: [id number] Oral 480 / 480 Other: # Voids 2 Date of Last Bowel Movement 12/04/17 12/04/17 - Constitutional no acute distress - Routine HEENT Exam Head: Present: normocephalic Eye: Present: EOMI ENT: Present: mucous membranes moist - Routine Neck Exam Present: supple - Routine Respiratory Exam Present: CTA bilaterally - Routine Cardiovascular Exam Present: RRR - Routine Abdominal Exam Present: soft - Routine Skin Exam Present: intact - Routine Neurological Exam Present: alert, oriented X3 - Detailed Neurological Exam: Coma Scale Eye Opening: Spontaneous - Routine Psychiatric Exam Present: normal affect Assessment and Plan - Assessment (1) Acute kidney injury Code(s): N17.9 - Acute kidney failure, unspecified Status: Acute Plan: patient's renal function has improved, likely had developed pre-renal azotemia. He continues to have diarrhea, seen by GI, note was reviewed. Apparently has lymphocytic colitis. Creatinine 1.5 today, continue to monitor (2) Ventricular tachycardia Code(s): I47.2 - Ventricular tachycardia Status: Acute Plan: patient is s/p AICD discharges. Cardiology consulted. K+ stable (3) Acute hypokalemia Code(s): E87.6 - Hypokalemia Status: Acute Plan: Patient was on Lasix, also had developed GI symptoms. Hypokalemia has improved. Replace as needed. (4) Heart failure, unspecified Code(s): I50.9 - Heart failure, unspecified Status: Acute Plan: monitor fluid and electrolytes. He was on Entresto.
--- NOTE | 2017-12-05 12:29 | P.PNIM ---
Subjective Interval history: Diarrhea continues. Reports some nausea this morning which has resolved. Denies any chest pain or shortness of breath. Physical Exam Vital signs: Vital Signs 12/04/17 13:00 12/04/17 14:00 12/04/17 15:00 Temperature Pulse Rate 60 58 L 62 Respiratory Rate Blood Pressure Pulse Oximetry 12/04/17 16:00 12/04/17 17:00 12/04/17 18:00 Temperature 98.5 F Pulse Rate 58 L 58 L 60 Respiratory Rate 16 Blood Pressure 70/41 L Pulse Oximetry 100 12/04/17 19:00 12/04/17 20:00 12/04/17 21:00 Temperature 98.6 F Pulse Rate 59 L 60 58 L Respiratory Rate 16 Blood Pressure 100/60 Pulse Oximetry 98 12/04/17 21:05 12/04/17 22:00 12/04/17 23:00 Temperature Pulse Rate 54 L 58 L 59 L Respiratory Rate 16 Blood Pressure Pulse Oximetry 96 12/05/17 00:00 12/05/17 01:00 12/05/17 02:00 Temperature Pulse Rate 60 62 58 L Respiratory Rate 16 Blood Pressure 90/55 L Pulse Oximetry 96 12/05/17 03:00 12/05/17 04:00 12/05/17 05:00 Temperature Pulse Rate 59 L 58 L 58 L Respiratory Rate 16 Blood Pressure 109/67 Pulse Oximetry 97 12/05/17 06:00 12/05/17 07:00 12/05/17 08:00 Temperature 99.2 F Pulse Rate 60 61 61 Respiratory Rate 20 Blood Pressure 104/60 Pulse Oximetry 12/05/17 11:13 Temperature Pulse Rate Respiratory Rate Blood Pressure Pulse Oximetry 96 Intake & Output 12/04/17 12/05/17 12/05/17 18:59 06:59 18:59 Intake Total 1480 / 1480 Balance 1480 / 1480 Weight 117.9 kg Intake: IV 1000 / 1000 LR 1000 mL Inj 1,000 ML @ 100 1000 / 1000 mls/hr IV.CONT .Q10H [facility] Rx#: [id number] Oral 480 / 480 Other: # Voids 2 Date of Last Bowel Movement 12/04/17 12/04/17 Narrative: GENERAL: Patient sitting up in bed. Appears comfortable. SKIN: Warm and dry. HEAD: Normocephalic. EYES: No scleral icterus. No injection or drainage. NECK: Supple, trachea midline. No JVD. CARDIOVASCULAR: Regular rate and rhythm without murmurs, gallops, or rubs. RESPIRATORY: Breath sounds equal bilaterally. No accessory muscle use. GASTROINTESTINAL: Abdomen soft, non-tender, nondistended. MUSCULOSKELETAL: No cyanosis, or edema. BACK: Nontender without obvious deformity. No CVA tenderness. Results - Labs CBC & Chem 7: 12/05/17 05:42 12/05/17 05:42 Laboratory Results - last 24 hr 12/04/17 12/05/17 12/05/17 22:56 05:42 05:42 WBC 11.9 H RBC 4.05 L Hgb 12.9 L Hct 39.4 MCV 97.3 MCH 31.9 MCHC 32.8 RDW 14.9 Plt Count 148 L MPV 9.8 Sodium 140 141 Potassium 3.5 3.5 Chloride 110 H 112 H Carbon Dioxide 20.3 L 22.3 Anion Gap 10 7 BUN 17 15 Creatinine 1.67 H 1.57 H Estimated GFR 40 L 43 L Random Glucose 98 103 Calcium 7.4 L* 7.6 L Phosphorus 2.0 L 2.4 L Magnesium 1.7 Albumin 2.4 L Assessment and Plan - Plan 77-year-old male who presented to the hospital after multiple AICD firing. The patient has been having worsening diarrhea, persistent nausea and vomiting which subsequently resolved and severe electrolyte abnormalities. He was admitted to the ICU. He is transferred to the hospitalist service. V. tach likely secondary to severe hypokalemia Status post AICD Essential hypertension Hyperlipidemia Elevated troponin Patient with a [facility] AICD. Interrogation 12/01 revealed 5 episodes of V. tach with successful cardioversion Cardiology consultation with Dr. Piper Currently on amiodarone drip at 0.5 mg/min per protocol. Plan to discontinue amiodarone drip today per cardiology. Continue carvedilol 12.5 mg daily/home medication for hypertension along with trazodone 1 mg daily Continue atorvastatin 80 mg daily for dyslipidemia. Currently holding sacubitril/valsartan 2 06/11 1 tablet daily Continue Eliquis for A. fib. = Reviewed telemetry. No sustained V. tach. Cardiology following. Appreciate assistance. Lymphocytic colitis: -Appreciate GI following. First-line treatment is budesonide which is not available in the hospital. Dr. Martin kindly is providing samples from his office to help treat the patient -Continue to monitor. IV fluid support. = Continue day 2 of budesonide. Still with diarrhea. GI following. Appreciate assistance. Hypothyroidism Gout Continue levothyroxine 150 mcg p.o. daily Allopurinol 100 mg daily Sliding scale insulin if indicated to maintain euglycemia Kidney injury acute versus chronic Left renal cyst Acute hypokalemia -Appreciate nephrology following. AK I likely secondary to prerenal azotemia. Renal functions improving. - Hypokalemia resolved. = 12/05. Kidney function improved. Creatinine 1.6. Continue to monitor. Decrease IV fluids. Prophylaxis GI--Pantoprazole DVT - apixaban provides DVT prophylaxis Discussed Condition With: Patient, nurse. Discharge Planning: Pending improvement in diarrhea.
--- NOTE | 2017-12-05 13:24 | P.PNGI ---
Subjective Interval history: Patient has some nausea which has resolved. He has postprandial loose bowel movements. He thinks the volume has decreased. He has only received 2 doses of the Uceris ( I supplied samples). pharmacy states hopefully they will have it in stock today or tomorrow. no abdominal pain Physical Exam Vital signs: Vital Signs 12/04/17 14:00 12/04/17 15:00 12/04/17 16:00 Temperature 98.5 F Pulse Rate 58 L 62 58 L Respiratory Rate 16 Blood Pressure 70/41 L Pulse Oximetry 100 12/04/17 17:00 12/04/17 18:00 12/04/17 19:00 Temperature Pulse Rate 58 L 60 59 L Respiratory Rate Blood Pressure Pulse Oximetry 12/04/17 20:00 12/04/17 21:00 12/04/17 21:05 Temperature 98.6 F Pulse Rate 60 58 L 54 L Respiratory Rate 16 16 Blood Pressure 100/60 Pulse Oximetry 98 96 12/04/17 22:00 12/04/17 23:00 12/05/17 00:00 Temperature Pulse Rate 58 L 59 L 60 Respiratory Rate 16 Blood Pressure 90/55 L Pulse Oximetry 96 12/05/17 01:00 12/05/17 02:00 12/05/17 03:00 Temperature Pulse Rate 62 58 L 59 L Respiratory Rate Blood Pressure Pulse Oximetry 12/05/17 04:00 12/05/17 05:00 12/05/17 06:00 Temperature Pulse Rate 58 L 58 L 60 Respiratory Rate 16 Blood Pressure 109/67 Pulse Oximetry 97 12/05/17 07:00 12/05/17 08:00 12/05/17 11:13 Temperature 99.2 F Pulse Rate 61 61 Respiratory Rate 20 Blood Pressure 104/60 Pulse Oximetry 96 Intake & Output 12/04/17 12/05/17 12/05/17 18:59 06:59 18:59 Intake Total 1480 / 1480 Balance 1480 / 1480 Weight 117.9 kg Intake: IV 1000 / 1000 LR 1000 mL Inj 1,000 ML @ 100 1000 / 1000 mls/hr IV.CONT .Q10H [facility] Rx#: [id number] Oral 480 / 480 Other: # Voids 2 Date of Last Bowel Movement 12/04/17 12/04/17 - Constitutional no acute distress - Routine HEENT Exam ENT: Present: mucous membranes moist - Routine Abdominal Exam Present: soft, normoactive bowel sounds. Absent: tenderness - Routine Extremities Exam Absent: cyanosis - Routine Skin Exam Present: intact - Routine Neurological Exam Present: alert, oriented X3 Results - Labs CBC & Chem 7: 12/05/17 05:42 12/05/17 05:42 Laboratory Results - last 24 hr 12/04/17 12/05/17 12/05/17 22:56 05:42 05:42 WBC 11.9 H RBC 4.05 L Hgb 12.9 L Hct 39.4 MCV 97.3 MCH 31.9 MCHC 32.8 RDW 14.9 Plt Count 148 L MPV 9.8 Sodium 140 141 Potassium 3.5 3.5 Chloride 110 H 112 H Carbon Dioxide 20.3 L 22.3 Anion Gap 10 7 BUN 17 15 Creatinine 1.67 H 1.57 H Estimated GFR 40 L 43 L Random Glucose 98 103 Calcium 7.4 L* 7.6 L Phosphorus 2.0 L 2.4 L Magnesium 1.7 Albumin 2.4 L Assessment and Plan - Attending Attestation IMPRESSION: 1. Lymphocytic colitis-- minimal improvement 2. Diarrhea. Still having some loose stools this morning- less volume Nausea better 3. Ventricular tachycardia. He has had numerous shocks from his automatic implantable cardioverter-defibrillator. 4. Renal insufficiency. He has been seen by nephrology. RECOMMENDATIONS: 1. continue steroids (Uceris 9 milligrams daily). patient understands it may take several weeks for him to improve. 2. Continue replacement therapy in regard to his potassium and IV fluids. 3. will add on cholestyramine
[2017-12-05] MEDS: Allopurinol 100 MG Tablet PO SCH (21:17)
[2017-12-06] MEDS: Chlorhexidine Gluconate 2% 1 Pack (2 Cloths) TOPICAL SCH (04:21)
[2017-12-06] MEDS: Levothyroxine 150 MCG Tablet PO SCH (05:31)
[2017-12-06] MEDS: BUDESONIDE 9 MG PO SCH (08:28)
[2017-12-06] MEDS: Carvedilol 12.5 MG Tablet PO SCH (08:29)
--- NOTE | 2017-12-06 09:28 | P.PNNP ---
Subjective Interval history: Some ongoing loose stools, improving per pt Physical Exam Vital signs: Vital Signs 12/05/17 11:13 12/05/17 12:00 12/05/17 16:00 Temperature 98.9 F 98.4 F Pulse Rate 57 L 52 L Respiratory Rate 18 18 Blood Pressure 108/70 103/69 Pulse Oximetry 96 12/05/17 18:00 12/05/17 19:00 12/05/17 20:00 Temperature 98.4 F Pulse Rate 54 L 59 L 51 L Respiratory Rate 16 Blood Pressure 94/64 L Pulse Oximetry 97 12/05/17 20:31 12/05/17 21:00 12/05/17 22:00 Temperature Pulse Rate 51 L 54 L 58 L Respiratory Rate 20 Blood Pressure Pulse Oximetry 12/05/17 23:00 12/05/17 23:52 12/06/17 00:00 Temperature Pulse Rate 67 60 62 Respiratory Rate 16 Blood Pressure 97/60 L Pulse Oximetry 97 12/06/17 01:00 12/06/17 02:00 12/06/17 03:00 Temperature Pulse Rate 62 64 64 Respiratory Rate Blood Pressure Pulse Oximetry 12/06/17 04:00 12/06/17 05:00 12/06/17 05:43 Temperature 98.4 F Pulse Rate 62 72 97 H Respiratory Rate 20 25 H Blood Pressure 103/69 Pulse Oximetry 96 12/06/17 06:00 Temperature Pulse Rate 62 Respiratory Rate Blood Pressure Pulse Oximetry Intake & Output 12/05/17 12/06/17 12/06/17 18:59 06:59 18:59 Intake Total 2320 / 2320 480 / 480 Balance 2320 / 2320 480 / 480 Weight 118 kg Intake: IV 1000 / 1000 LR 1000 mL Inj 1,000 ML @ 35 1000 / 1000 mls/hr IV.CONT .Q24H [facility] Rx#: [id number] Oral 1320 / 1320 480 / 480 Other: # Voids 6 2 Date of Last Bowel Movement 12/05/17 # Bowel Movements 8 0 - Constitutional no acute distress - Routine HEENT Exam Head: Present: normocephalic Eye: Present: EOMI ENT: Present: mucous membranes moist - Routine Neck Exam Present: supple - Routine Respiratory Exam Present: decreased breath sounds - Routine Cardiovascular Exam Present: RRR - Routine Abdominal Exam Present: soft - Routine Skin Exam Present: intact - Routine Neurological Exam Present: alert, oriented X3 - Detailed Neurological Exam: Coma Scale Eye Opening: Spontaneous - Routine Psychiatric Exam Present: normal affect Assessment and Plan - Assessment (1) Acute kidney injury Code(s): N17.9 - Acute kidney failure, unspecified Status: Acute Plan: patient's renal function has improved, likely had developed pre-renal azotemia. He continues to have diarrhea, seen by GI, note was reviewed. Apparently has lymphocytic colitis. Creatinine 1.6 -> 1.5 yesterday, todays labs not done yet. Continue to encourage PO intake, continue to monitor Diarrhea improving - follow with GI (2) Ventricular tachycardia Code(s): I47.2 - Ventricular tachycardia Status: Acute Plan: patient is s/p AICD discharges. Cardiology consulted. K+ stable (3) Acute hypokalemia Code(s): E87.6 - Hypokalemia Status: Acute Plan: Patient was on Lasix, also had developed GI symptoms. Hypokalemia has improved. Replace as needed. (4) Heart failure, unspecified Code(s): I50.9 - Heart failure, unspecified Status: Acute Plan: monitor fluid and electrolytes. He was on Entresto.
[2017-12-06 09:51] LABS: Baso # (Auto) 0.1 th/mm3 (0.0-0.2); Baso % (Auto) 0.5 % (0.0-2.0); Eos # (Auto) 0.3 th/mm3 (0.0-0.4); Eos % (Auto) 2.1 % (0.0-4.0); Hematocrit 39.4 % (39.0-51.0); Hemoglobin 13.3 gm/dL (13.0-17.0); Lymph # (Auto) 1.5 th/mm3 (1.0-4.8); Lymph % (Auto) 10.9 % (9.0-44.0); Mean Corpuscular HGB Conc 33.8 % (32.0-36.0); Mean Corpuscular Hemoglobin 32.4 pg (27.0-34.0); Mean Corpuscular Volume 95.8 fL (80.0-100.0); Mean Platelet Volume 10.1 fL (7.0-11.0); Mono # (Auto) 1.2 th/mm3 (0.0-0.9); Mono % (Auto) 8.7 % (0.0-8.0); Neut # (Auto) 10.5 th/mm3 (1.8-7.7); Neut % (Auto) 77.8 % (16.0-70.0); Platelet Count 168 th/mm3 (150-450); Red Blood Count 4.12 mil/mm3 (4.50-5.90); Red Cell Distribution Width 14.8 % (11.6-17.2); White Blood Count 13.6 th/mm3 (4.0-11.0)
[2017-12-06 10:10] LABS: Alanine Aminotransferase 21 U/L (12-78); Albumin 2.4 g/dL (3.4-5.0); Anion Gap 6 meq/L (5-15); Aspartate Aminotransferase 14 U/L (15-37); Blood Urea Nitrogen 12 mg/dL (7-18); Calcium 7.6 mg/dL (8.5-10.1); Carbon Dioxide 25.2 meq/L (21.0-32.0); Chloride 111 meq/L (98-107); Glomerular Filtration Rate 55 mL/min (>89); Glucose,Random 94 mg/dL (74-106); Magnesium 1.8 mg/dL (1.5-2.5); Potassium 3.6 meq/L (3.5-5.1); Sodium 142 meq/L (136-145)
[2017-12-06 10:13] LABS: Alkaline Phosphatase 75 U/L (45-117); Total Protein 5.6 g/dL (6.4-8.2)
--- NOTE | 2017-12-06 10:48 | P.PNIM ---
Subjective Interval history: Patient reports continued diarrhea. Denies abdominal pain today. Physical Exam Vital signs: Vital Signs 12/05/17 11:13 12/05/17 12:00 12/05/17 16:00 Temperature 98.9 F 98.4 F Pulse Rate 57 L 52 L Respiratory Rate 18 18 Blood Pressure 108/70 103/69 Pulse Oximetry 96 12/05/17 18:00 12/05/17 19:00 12/05/17 20:00 Temperature 98.4 F Pulse Rate 54 L 59 L 51 L Respiratory Rate 16 Blood Pressure 94/64 L Pulse Oximetry 97 12/05/17 20:31 12/05/17 21:00 12/05/17 22:00 Temperature Pulse Rate 51 L 54 L 58 L Respiratory Rate 20 Blood Pressure Pulse Oximetry 12/05/17 23:00 12/05/17 23:52 12/06/17 00:00 Temperature Pulse Rate 67 60 62 Respiratory Rate 16 Blood Pressure 97/60 L Pulse Oximetry 97 12/06/17 01:00 12/06/17 02:00 12/06/17 03:00 Temperature Pulse Rate 62 64 64 Respiratory Rate Blood Pressure Pulse Oximetry 12/06/17 04:00 12/06/17 05:00 12/06/17 05:43 Temperature 98.4 F Pulse Rate 62 72 97 H Respiratory Rate 20 25 H Blood Pressure 103/69 Pulse Oximetry 96 12/06/17 06:00 Temperature Pulse Rate 62 Respiratory Rate Blood Pressure Pulse Oximetry Intake & Output 12/05/17 12/06/17 12/06/17 18:59 06:59 18:59 Intake Total 2320 / 2320 480 / 480 Balance 2320 / 2320 480 / 480 Weight 118 kg Intake: IV 1000 / 1000 LR 1000 mL Inj 1,000 ML @ 35 1000 / 1000 mls/hr IV.CONT .Q24H [facility] Rx#: [id number] Oral 1320 / 1320 480 / 480 Other: # Voids 6 2 Date of Last Bowel Movement 12/05/17 # Bowel Movements 8 0 Narrative: GENERAL: Patient sleeping, wakes up for exam. Appears comfortable. SKIN: Warm and dry. HEAD: Normocephalic. EYES: No scleral icterus. No injection or drainage. NECK: Supple, trachea midline. No JVD. CARDIOVASCULAR: Regular rate and rhythm without murmurs, gallops, or rubs. RESPIRATORY: Breath sounds equal bilaterally. No accessory muscle use. GASTROINTESTINAL: Abdomen soft, non-tender, nondistended. MUSCULOSKELETAL: No cyanosis, or edema. BACK: Nontender without obvious deformity. No CVA tenderness. Results - Labs CBC & Chem 7: 12/06/17 07:59 12/06/17 07:59 Laboratory Results - last 24 hr 12/06/17 12/06/17 07:59 07:59 WBC 13.6 H RBC 4.12 L Hgb 13.3 Hct 39.4 MCV 95.8 MCH 32.4 MCHC 33.8 RDW 14.8 Plt Count 168 MPV 10.1 Neut % (Auto) 77.8 H Lymph % (Auto) 10.9 [place] % (Auto) 8.7 H Eos % (Auto) 2.1 Baso % (Auto) 0.5 Neut # (Auto) 10.5 H Lymph # (Auto) 1.5 [place] # (Auto) 1.2 H Eos # (Auto) 0.3 Baso # (Auto) 0.1 WBC Differential . Differential Comment Auto diff final Sodium 142 Potassium 3.6 Chloride 111 H Carbon Dioxide 25.2 Anion Gap 6 BUN 12 Creatinine 1.28 Estimated GFR 55 L Random Glucose 94 Calcium 7.6 L Phosphorus 2.0 L Magnesium 1.8 Total Bilirubin 0.5 AST 14 L ALT 21 Alkaline Phosphatase 75 Total Protein 5.6 L Albumin 2.4 L Assessment and Plan - Plan 77-year-old male who presented to the hospital after multiple AICD firing. The patient has been having worsening diarrhea, persistent nausea and vomiting which subsequently resolved and severe electrolyte abnormalities. He was admitted to the ICU. He is transferred to the hospitalist service. V. tach likely secondary to severe hypokalemia Status post AICD Essential hypertension Hyperlipidemia Elevated troponin Patient with a [facility] AICD. Interrogation 12/01 revealed 5 episodes of V. tach with successful cardioversion Cardiology consultation with Dr. Piper Currently on amiodarone drip at 0.5 mg/min per protocol. Plan to discontinue amiodarone drip today per cardiology. Continue carvedilol 12.5 mg daily/home medication for hypertension along with trazodone 1 mg daily Continue atorvastatin 80 mg daily for dyslipidemia. Currently holding sacubitril/valsartan 2 06/11 1 tablet daily Continue Eliquis for A. fib. = Reviewed telemetry. No sustained V. tach. Cardiology following. Appreciate assistance. Lymphocytic colitis: -Appreciate GI following. First-line treatment is budesonide which is not available in the hospital. Dr. Martin kindly is providing samples from his office to help treat the patient -Continue to monitor. IV fluid support. = Continue day 3 of budesonide. Still with diarrhea, 4 bowel movements prior to 10 AM.. Will start loperamide prn .GI following. Appreciate assistance. Stop IV fluids and monitor electrolytes. Hypothyroidism Gout Continue levothyroxine 150 mcg p.o. daily Allopurinol 100 mg daily Sliding scale insulin if indicated to maintain euglycemia Kidney injury acute versus chronic Left renal cyst Acute hypokalemia -Appreciate nephrology following. AK I likely secondary to prerenal azotemia. Renal functions improving. - Hypokalemia resolved. = 12/06. Kidney function improved. Creatinine 1.2. Will stop IV fluids and monitor Prophylaxis GI--Pantoprazole DVT - apixaban provides DVT prophylaxis Discharge Planning: Pending improvement in diarrhea, and stability and renal function off of IV fluids
[2017-12-06] MEDS ORDERED: Potassium Phosphate Inj 15 MMOL in Sodium Chlor 0.9% Inj 150 ML IV.SIG ONE (12:00)
--- NOTE | 2017-12-06 13:54 | US ---
EXAM DATE: 12/06/2017 12:00 AM EDT AGE/SEX: 77 years / Male INDICATIONS: left arm redness and swelling at recent IV site. CLINICAL DATA: This is the patient's initial encounter. Patient reports that signs and symptoms have been present for 3 days and indicates a pain score of 3/10. MEDICAL/SURGICAL HISTORY: . Acute Biliary Pancreatitis. Cardiac Defoliator. Gallstones. High co lterol. Low blood pressure. Pacemaker. None. COMPARISON: No prior exams available for comparison. FINDINGS: Occlusive thrombus is noted in the basilic vein along the distal humerus. This is the area of pain and swelling. Left internal jugular vein is patent. The subclavian, axillary and brachial ve ins are demonstrated normal color flow. The cephalic vein is patent as well. Other: None. CONCLUSION: 1. Occlusive thrombus in the basilic vein. 2. The deep venous system is patent. Electronically signed by: Manohar Qureshi MD 12/06/2017 1:53 PM EDT
--- NOTE | 2017-12-06 14:51 | P.PNGI ---
Subjective Interval history: Patient states he still having postprandial diarrhea but the volume is less. There is more form. He thinks the addition of the cholestyramine is helping the Uceris. Imodium is ordered but he is not taking it. He understands he can take this every 8 hours if he wants to. He also understands that as soon as he can demonstrate maintaining his electrolytes and hydration without IV fluids he can go home. He is tolerating his diet at this time Physical Exam Vital signs: Vital Signs 12/05/17 16:00 12/05/17 18:00 12/05/17 19:00 Temperature 98.4 F Pulse Rate 52 L 54 L 59 L Respiratory Rate 18 Blood Pressure 103/69 Pulse Oximetry 12/05/17 20:00 12/05/17 20:31 12/05/17 21:00 Temperature 98.4 F Pulse Rate 51 L 51 L 54 L Respiratory Rate 16 20 Blood Pressure 94/64 L Pulse Oximetry 97 12/05/17 22:00 12/05/17 23:00 12/05/17 23:52 Temperature Pulse Rate 58 L 67 60 Respiratory Rate 16 Blood Pressure 97/60 L Pulse Oximetry 97 12/06/17 00:00 12/06/17 01:00 12/06/17 02:00 Temperature Pulse Rate 62 62 64 Respiratory Rate Blood Pressure Pulse Oximetry 12/06/17 03:00 12/06/17 04:00 12/06/17 05:00 Temperature 98.4 F Pulse Rate 64 62 72 Respiratory Rate 20 Blood Pressure 103/69 Pulse Oximetry 96 12/06/17 05:43 12/06/17 06:00 12/06/17 07:00 Temperature Pulse Rate 97 H 62 58 L Respiratory Rate 25 H Blood Pressure Pulse Oximetry 12/06/17 08:00 12/06/17 12:00 12/06/17 12:41 Temperature 97.8 F 98.4 F Pulse Rate 64 56 L Respiratory Rate 18 20 Blood Pressure 89/58 L Pulse Oximetry 95 94 L 94 L 12/06/17 13:41 Temperature Pulse Rate 50 L Respiratory Rate 16 Blood Pressure Pulse Oximetry Intake & Output 12/05/17 12/06/17 12/06/17 18:59 06:59 18:59 Intake Total 2320 / 2320 480 / 480 Balance 2320 / 2320 480 / 480 Weight 118 kg Intake: IV 1000 / 1000 LR 1000 mL Inj 1,000 ML @ 35 1000 / 1000 mls/hr IV.CONT .Q24H [facility] Rx#: [id number] Oral 1320 / 1320 480 / 480 Other: # Voids 6 2 Date of Last Bowel Movement 12/05/17 # Bowel Movements 8 0 - Constitutional no acute distress - Routine HEENT Exam Eye: Present: EOMI ENT: Present: mucous membranes moist - Routine Cardiovascular Exam Present: RRR - Routine Abdominal Exam Present: soft, normoactive bowel sounds. Absent: tenderness, distended - Routine Extremities Exam Absent: cyanosis - Routine Neurological Exam Present: alert, oriented X3 Results - Labs CBC & Chem 7: 12/06/17 07:59 12/06/17 07:59 Laboratory Results - last 24 hr 12/06/17 12/06/17 07:59 07:59 WBC 13.6 H RBC 4.12 L Hgb 13.3 Hct 39.4 MCV 95.8 MCH 32.4 MCHC 33.8 RDW 14.8 Plt Count 168 MPV 10.1 Neut % (Auto) 77.8 H Lymph % (Auto) 10.9 [place] % (Auto) 8.7 H Eos % (Auto) 2.1 Baso % (Auto) 0.5 Neut # (Auto) 10.5 H Lymph # (Auto) 1.5 [place] # (Auto) 1.2 H Eos # (Auto) 0.3 Baso # (Auto) 0.1 WBC Differential . Differential Comment Auto diff final Sodium 142 Potassium 3.6 Chloride 111 H Carbon Dioxide 25.2 Anion Gap 6 BUN 12 Creatinine 1.28 Estimated GFR 55 L Random Glucose 94 Calcium 7.6 L Phosphorus 2.0 L Magnesium 1.8 Total Bilirubin 0.5 AST 14 L ALT 21 Alkaline Phosphatase 75 Total Protein 5.6 L Albumin 2.4 L - Imaging Impressions Venous Doppler Study 12/06/17 00:00 CONCLUSION: 1. Occlusive thrombus in the basilic vein. 2. The deep venous system is patent. Assessment and Plan - Attending Attestation IMPRESSION: 1. Lymphocytic colitis--some improvement with a combination of Uceris and cholestyramine. But he still having some loose stools. I suggested he take Imodium [id number] 2. Diarrhea. Still having some loose stools this morning- less volume Nausea better 3. Ventricular tachycardia-stable 4. Renal insufficiency. RECOMMENDATIONS: 1. continue steroids (Uceris 9 milligrams daily). patient understands it may take several weeks for him to improve. 2. Imodium as mentioned above 3. Continue cholestyramine 4. As soon as he can demonstrate maintenance of hydration and his electrolytes with diet and w/o IV fluids he can go home. It is going to take several weeks for his diarrhea/loose stools to improve (solid bowel movement)
[2017-12-06] MEDS: Loperamide 2 MG Capsule PO PRN (16:20)
[2017-12-06] MEDS: Allopurinol 100 MG Tablet PO SCH (21:19)
[2017-12-07] MEDS: Levothyroxine 150 MCG Tablet PO SCH (05:01)
[2017-12-07 06:36] LABS: Baso # (Auto) 0.1 th/mm3 (0.0-0.2); Baso % (Auto) 0.6 % (0.0-2.0); Eos # (Auto) 0.3 th/mm3 (0.0-0.4); Eos % (Auto) 2.5 % (0.0-4.0); Hemoglobin 13.9 gm/dL (13.0-17.0); Lymph # (Auto) 1.3 th/mm3 (1.0-4.8); Lymph % (Auto) 10.7 % (9.0-44.0); Mean Corpuscular Hemoglobin 31.9 pg (27.0-34.0); Mean Corpuscular Volume 96.7 fL (80.0-100.0); Mono # (Auto) 0.9 th/mm3 (0.0-0.9); Mono % (Auto) 6.8 % (0.0-8.0); Neut % (Auto) 79.4 % (16.0-70.0); Platelet Count 179 th/mm3 (150-450); Red Blood Count 4.35 mil/mm3 (4.50-5.90); Red Cell Distribution Width 15.3 % (11.6-17.2); White Blood Count 12.6 th/mm3 (4.0-11.0)
[2017-12-07 07:02] LABS: Albumin 2.4 g/dL (3.4-5.0); Anion Gap 9 meq/L (5-15); Aspartate Aminotransferase 17 U/L (15-37); Blood Urea Nitrogen 10 mg/dL (7-18); Calcium 8.1 mg/dL (8.5-10.1); Carbon Dioxide 25.2 meq/L (21.0-32.0); Chloride 108 meq/L (98-107); Glomerular Filtration Rate 48 mL/min (>89); Glucose,Random 93 mg/dL (74-106); Magnesium 1.7 mg/dL (1.5-2.5); Potassium 3.6 meq/L (3.5-5.1); Sodium 142 meq/L (136-145)
[2017-12-07 07:03] LABS: Alanine Aminotransferase 24 U/L (12-78); Phosphorus 2.9 mg/dL (2.5-4.9)
[2017-12-07 07:06] LABS: Alkaline Phosphatase 81 U/L (45-117); Total Protein 6.2 g/dL (6.4-8.2)
[2017-12-07] MEDS: Carvedilol 12.5 MG Tablet PO SCH (09:52)
[2017-12-07] MEDS: BUDESONIDE 9 MG PO SCH (09:53)
--- NOTE | 2017-12-07 11:15 | P.PNGI ---
Subjective Interval history: patient continues to have less volume in his bowel movements. There is was a little form in the stool today. No bleeding. had some dry heaves before eating but was able to tolerate and keep down breakfast. no abdominal pain Physical Exam Vital signs: Vital Signs 12/06/17 12:00 12/06/17 12:41 12/06/17 13:00 Temperature 98.4 F Pulse Rate 56 L 54 L Respiratory Rate 20 Blood Pressure 89/58 L Pulse Oximetry 94 L 94 L 12/06/17 13:41 12/06/17 14:00 12/06/17 15:00 Temperature Pulse Rate 50 L 53 L 54 L Respiratory Rate 16 Blood Pressure Pulse Oximetry 12/06/17 16:00 12/06/17 17:00 12/06/17 19:00 Temperature 98.4 F Pulse Rate 56 L 52 L 55 L Respiratory Rate 20 Blood Pressure 89/58 L Pulse Oximetry 94 L 12/06/17 20:00 12/06/17 21:00 12/06/17 21:38 Temperature 98.3 F Pulse Rate 54 L 54 L 52 L Respiratory Rate 16 15 Blood Pressure 105/71 Pulse Oximetry 99 12/06/17 22:00 12/06/17 23:00 12/07/17 00:00 Temperature Pulse Rate 56 L 63 64 Respiratory Rate 16 Blood Pressure 123/75 Pulse Oximetry 95 12/07/17 01:00 12/07/17 02:00 12/07/17 03:00 Temperature Pulse Rate 60 64 67 Respiratory Rate Blood Pressure Pulse Oximetry 12/07/17 04:00 12/07/17 05:00 12/07/17 05:26 Temperature Pulse Rate 64 78 68 Respiratory Rate 16 Blood Pressure 132/81 Pulse Oximetry 96 12/07/17 06:00 12/07/17 07:00 12/07/17 08:00 Temperature 98.0 F Pulse Rate 66 69 72 Respiratory Rate 18 Blood Pressure 141/81 H Pulse Oximetry 95 12/07/17 09:00 12/07/17 10:00 Temperature Pulse Rate 80 84 Respiratory Rate Blood Pressure Pulse Oximetry Intake & Output 12/06/17 12/07/17 12/07/17 18:59 06:59 18:59 Intake Total 155 / 155 1480 / 1480 Output Total 1000 / 1000 Balance -845 / -845 1480 / 1480 Weight 118 kg Intake: IV 155 / 155 1000 / 1000 Potassium Phosphate Inj 15 MMOL 155 / 155 In NS Inj 150 ML @ 38.75 mls/ hr IV.SIG ONCE ONE Rx#:[id number] Oral 480 / 480 Output: Urine 1000 / 1000 Other: # Voids 2 Date of Last Bowel Movement 12/06/17 12/04/17 12/04/17 # Bowel Movements 4 1 - Constitutional no acute distress - Routine Neck Exam Present: supple - Routine Abdominal Exam Present: soft, normoactive bowel sounds. Absent: tenderness, distended - Routine Extremities Exam Absent: clubbing - Routine Skin Exam Present: intact - Routine Neurological Exam Present: alert, oriented X3 Results - Labs CBC & Chem 7: 12/07/17 05:21 12/07/17 05:21 Laboratory Results - last 24 hr 12/07/17 12/07/17 05:21 05:21 WBC 12.6 H RBC 4.35 L Hgb 13.9 Hct 42.0 MCV 96.7 MCH 31.9 MCHC 33.0 RDW 15.3 Plt Count 179 MPV 10.0 Neut % (Auto) 79.4 H Lymph % (Auto) 10.7 [place] % (Auto) 6.8 Eos % (Auto) 2.5 Baso % (Auto) 0.6 Neut # (Auto) 10.0 H Lymph # (Auto) 1.3 [place] # (Auto) 0.9 Eos # (Auto) 0.3 Baso # (Auto) 0.1 WBC Differential . Differential Comment Auto diff final Sodium 142 Potassium 3.6 Chloride 108 H Carbon Dioxide 25.2 Anion Gap 9 BUN 10 Creatinine 1.42 H Estimated GFR 48 L Random Glucose 93 Calcium 8.1 L Phosphorus 2.9 Magnesium 1.7 Total Bilirubin 0.5 AST 17 ALT 24 Alkaline Phosphatase 81 Total Protein 6.2 L D Albumin 2.4 L - Imaging Impressions Venous Doppler Study 12/06/17 00:00 CONCLUSION: 1. Occlusive thrombus in the basilic vein. 2. The deep venous system is patent. Assessment and Plan - Attending Attestation IMPRESSION: 1. Lymphocytic colitis--some improvement with a combination of Uceris and cholestyramine. the stool he states almost look formed her states until it hits the toilet then breaks apart. He only took 1 Imodium and he can take more as needed 2. Diarrhea. Still having some loose/se,i-firmed stools this morning- less volume etiology of dry heaves is unclear. He was able to keep down breakfast 3. Ventricular tachycardia-stable 4. Renal insufficiency. RECOMMENDATIONS: 1. continue steroids (Uceris 9 milligrams daily). patient understands it may take several weeks for him to improve. 2. Imodium -he can take it every 6 hours if needed 3. Continue cholestyramine 4. As soon as he can demonstrate maintenance of hydration and his electrolytes with diet and w/o IV fluids he can go home. It is going to take several weeks for his diarrhea/loose stools to improve (solid bowel movement)--- he does not have to have formed bowel movements to be discharged
[2017-12-07] MEDS: Loperamide 2 MG Capsule PO PRN ×2 (12:43→21:23)
--- NOTE | 2017-12-07 14:29 | P.PNIM ---
Subjective Interval history: Patient reports continued diarrhea, some nausea and nonbloody vomiting this morning. Physical Exam Vital signs: Vital Signs 12/06/17 15:00 12/06/17 16:00 12/06/17 17:00 Temperature 98.4 F Pulse Rate 54 L 56 L 52 L Respiratory Rate 20 Blood Pressure 89/58 L Pulse Oximetry 94 L 12/06/17 19:00 12/06/17 20:00 12/06/17 21:00 Temperature 98.3 F Pulse Rate 55 L 54 L 54 L Respiratory Rate 16 Blood Pressure 105/71 Pulse Oximetry 99 12/06/17 21:38 12/06/17 22:00 12/06/17 23:00 Temperature Pulse Rate 52 L 56 L 63 Respiratory Rate 15 Blood Pressure Pulse Oximetry 12/07/17 00:00 12/07/17 01:00 12/07/17 02:00 Temperature Pulse Rate 64 60 64 Respiratory Rate 16 Blood Pressure 123/75 Pulse Oximetry 95 12/07/17 03:00 12/07/17 04:00 12/07/17 05:00 Temperature Pulse Rate 67 64 78 Respiratory Rate Blood Pressure Pulse Oximetry 12/07/17 05:26 12/07/17 06:00 12/07/17 07:00 Temperature Pulse Rate 68 66 69 Respiratory Rate 16 Blood Pressure 132/81 Pulse Oximetry 96 12/07/17 08:00 12/07/17 09:00 12/07/17 10:00 Temperature 98.0 F Pulse Rate 72 80 84 Respiratory Rate 18 Blood Pressure 141/81 H Pulse Oximetry 95 12/07/17 11:00 12/07/17 12:00 12/07/17 13:00 Temperature 98.2 F Pulse Rate 75 60 60 Respiratory Rate 18 Blood Pressure 106/60 Pulse Oximetry 96 12/07/17 14:05 Temperature Pulse Rate 82 Respiratory Rate 18 Blood Pressure Pulse Oximetry Intake & Output 12/06/17 12/07/17 12/07/17 18:59 06:59 18:59 Intake Total 155 / 155 1480 / 1480 Output Total 1000 / 1000 Balance -845 / -845 1480 / 1480 Weight 118 kg Intake: IV 155 / 155 1000 / 1000 Potassium Phosphate Inj 15 MMOL 155 / 155 In NS Inj 150 ML @ 38.75 mls/ hr IV.SIG ONCE ONE Rx#:[id number] Oral 480 / 480 Output: Urine 1000 / 1000 Other: # Voids 2 Date of Last Bowel Movement 12/06/17 12/04/17 12/07/17 # Bowel Movements 4 1 Narrative: GENERAL: Patient sitting up in bed. Appears comfortable. SKIN: Warm and dry. HEAD: Normocephalic. EYES: No scleral icterus. No injection or drainage. NECK: Supple, trachea midline. No JVD. CARDIOVASCULAR: Regular rate and rhythm without murmurs, gallops, or rubs. RESPIRATORY: Breath sounds equal bilaterally. No accessory muscle use. GASTROINTESTINAL: Abdomen soft, non-tender, nondistended. MUSCULOSKELETAL: No cyanosis, or edema. BACK: Nontender without obvious deformity. No CVA tenderness. Results - Labs CBC & Chem 7: 12/07/17 05:21 12/07/17 05:21 Laboratory Results - last 24 hr 12/07/17 12/07/17 05:21 05:21 WBC 12.6 H RBC 4.35 L Hgb 13.9 Hct 42.0 MCV 96.7 MCH 31.9 MCHC 33.0 RDW 15.3 Plt Count 179 MPV 10.0 Neut % (Auto) 79.4 H Lymph % (Auto) 10.7 [place] % (Auto) 6.8 Eos % (Auto) 2.5 Baso % (Auto) 0.6 Neut # (Auto) 10.0 H Lymph # (Auto) 1.3 [place] # (Auto) 0.9 Eos # (Auto) 0.3 Baso # (Auto) 0.1 WBC Differential . Differential Comment Auto diff final Sodium 142 Potassium 3.6 Chloride 108 H Carbon Dioxide 25.2 Anion Gap 9 BUN 10 Creatinine 1.42 H Estimated GFR 48 L Random Glucose 93 Calcium 8.1 L Phosphorus 2.9 Magnesium 1.7 Total Bilirubin 0.5 AST 17 ALT 24 Alkaline Phosphatase 81 Total Protein 6.2 L D Albumin 2.4 L Assessment and Plan - Plan 77-year-old male who presented to the hospital after multiple AICD firing. The patient has been having worsening diarrhea, persistent nausea and vomiting which subsequently resolved and severe electrolyte abnormalities. He was admitted to the ICU. He is transferred to the hospitalist service. V. tach likely secondary to severe hypokalemia Status post AICD Essential hypertension Hyperlipidemia Elevated troponin Patient with a [facility] AICD. Interrogation 12/01 revealed 5 episodes of V. tach with successful cardioversion Cardiology consultation with Dr. Piper Currently on amiodarone drip at 0.5 mg/min per protocol. Plan to discontinue amiodarone drip today per cardiology. Continue carvedilol 12.5 mg daily/home medication for hypertension along with trazodone 1 mg daily Continue atorvastatin 80 mg daily for dyslipidemia. Currently holding sacubitril/valsartan 2 06/11 1 tablet daily Continue Eliquis for A. fib. = Reviewed telemetry. No sustained V. tach. Cardiology following. Appreciate assistance. Lymphocytic colitis: -Appreciate GI following. First-line treatment is budesonide which is not available in the hospital. Dr. Martin kindly is providing samples from his office to help treat the patient -Continue to monitor. IV fluid support. = Continue day 3 of budesonide. Still with diarrhea, 4 bowel movements prior to 10 AM.. Will start loperamide prn .GI following. Appreciate assistance. Stop IV fluids and monitor electrolytes. = 12/07. Stool has firmed up, however still intermittent nausea, multiple loose stools. Continue loperamide, budesonide, cholestyramine. Appreciate GI assistance. Off of IV fluids right now. If patient can stay hydrated off of IV fluids, hopefully can discharge home. Creatinine took a small bump to 1.3, however still around previous baseline. We will continue to monitor. Hypothyroidism Gout Continue levothyroxine 150 mcg p.o. daily Allopurinol 100 mg daily Sliding scale insulin if indicated to maintain euglycemia Kidney injury acute versus chronic Left renal cyst Acute hypokalemia -Appreciate nephrology following. AK I likely secondary to prerenal azotemia. Renal functions improving. - Hypokalemia resolved. = 12/06. Kidney function improved. Creatinine 1.28. Will stop IV fluids and monitor = 12/07. Creatinine bumped to 1.4. Still better than baseline. Monitor off of IV fluids. Prophylaxis GI--Pantoprazole DVT - apixaban provides DVT prophylaxis Discharge Planning: Pending improvement in diarrhea, and stability and renal function off of IV fluids
[2017-12-07] MEDS: Allopurinol 100 MG Tablet PO SCH (21:22)
[2017-12-08] MEDS: Loperamide 2 MG Capsule PO PRN ×3 (03:53→16:47)
[2017-12-08] MEDS: Levothyroxine 150 MCG Tablet PO SCH (05:38)
[2017-12-08 06:30] LABS: Hematocrit 38.5 % (39.0-51.0); Hemoglobin 12.8 gm/dL (13.0-17.0); Mean Corpuscular HGB Conc 33.1 % (32.0-36.0); Mean Corpuscular Hemoglobin 32.2 pg (27.0-34.0); Mean Corpuscular Volume 97.2 fL (80.0-100.0); Mean Platelet Volume 10.2 fL (7.0-11.0); Platelet Count 169 th/mm3 (150-450); Red Blood Count 3.96 mil/mm3 (4.50-5.90); Red Cell Distribution Width 15.3 % (11.6-17.2); White Blood Count 10.7 th/mm3 (4.0-11.0)
[2017-12-08 07:01] LABS: Alanine Aminotransferase 21 U/L (12-78); Albumin 2.1 g/dL (3.4-5.0); Anion Gap 9 meq/L (5-15); Aspartate Aminotransferase 15 U/L (15-37); Blood Urea Nitrogen 11 mg/dL (7-18); Calcium 7.6 mg/dL (8.5-10.1); Carbon Dioxide 25.1 meq/L (21.0-32.0); Chloride 108 meq/L (98-107); Glomerular Filtration Rate 49 mL/min (>89); Glucose,Random 103 mg/dL (74-106); Magnesium 1.8 mg/dL (1.5-2.5); Phosphorus 2.4 mg/dL (2.5-4.9); Potassium 3.6 meq/L (3.5-5.1); Sodium 142 meq/L (136-145)
[2017-12-08 07:04] LABS: Alkaline Phosphatase 71 U/L (45-117); Total Protein 5.6 g/dL (6.4-8.2)
[2017-12-08] MEDS: BUDESONIDE 9 MG PO SCH (08:44)
[2017-12-08] MEDS: Carvedilol 12.5 MG Tablet PO SCH (08:47)
--- NOTE | 2017-12-08 15:20 | P.PNGI ---
Subjective Interval history: Patient had episode of vomiting this morningbasically undigested food. However afterwards he had some fruit and to stay down. He was sitting at the edge of the bed when he ate and then he laid down right away. Patient states he still having several altered bowel habitswatery, loose and some semi- formed. He believes he has improved but is frustrated he has not come back to normal. He is currently getting Uceris, cholestyramine twice daily and Imodium Physical Exam Vital signs: Vital Signs 12/07/17 16:00 12/07/17 17:00 12/07/17 18:00 Temperature 98.2 F Pulse Rate 56 L 60 58 L Respiratory Rate 16 Blood Pressure 84/46 L Pulse Oximetry 96 12/07/17 19:00 12/07/17 19:54 12/07/17 20:00 Temperature 99.1 F Pulse Rate 55 L 57 L 58 L Respiratory Rate 18 Blood Pressure 117/66 Pulse Oximetry 96 12/07/17 21:00 12/07/17 22:00 12/07/17 23:00 Temperature Pulse Rate 60 57 L 62 Respiratory Rate Blood Pressure Pulse Oximetry 12/07/17 23:35 12/08/17 00:00 12/08/17 01:00 Temperature 98.7 F Pulse Rate 59 L 57 L 61 Respiratory Rate 18 16 Blood Pressure 108/60 Pulse Oximetry 95 12/08/17 02:00 12/08/17 03:00 12/08/17 04:00 Temperature 98.1 F Pulse Rate 64 62 65 Respiratory Rate 18 Blood Pressure 96/66 L Pulse Oximetry 95 12/08/17 05:00 12/08/17 06:00 12/08/17 07:00 Temperature Pulse Rate 66 64 61 Respiratory Rate Blood Pressure Pulse Oximetry 12/08/17 08:00 12/08/17 08:56 12/08/17 09:00 Temperature 97.7 F Pulse Rate 69 75 71 Respiratory Rate 20 20 Blood Pressure 91/51 L Pulse Oximetry 95 12/08/17 10:00 12/08/17 11:00 12/08/17 12:00 Temperature 97.5 F L 97.5 F L Pulse Rate 65 63 63 Respiratory Rate 20 20 Blood Pressure 108/53 L 108/53 L Pulse Oximetry 93 L 12/08/17 13:00 12/08/17 14:00 12/08/17 15:00 Temperature Pulse Rate 69 65 67 Respiratory Rate Blood Pressure Pulse Oximetry Intake & Output 12/07/17 12/08/17 12/08/17 18:59 06:59 18:59 Intake Total 1300 / 1300 460 / 460 Balance 1300 / 1300 460 / 460 Weight 118.3 kg Intake: Oral 1300 / 1300 460 / 460 Other: # Voids 5 4 Date of Last Bowel Movement 12/07/17 12/08/17 # Bowel Movements 9 5 # Emeses 3 - Constitutional no acute distress - Routine Neck Exam Present: supple - Routine Abdominal Exam Present: soft, normoactive bowel sounds. Absent: tenderness, distended, rebound , firm, organomegaly - Routine Extremities Exam Absent: clubbing - Routine Skin Exam Absent: cyanosis, petechiae - Routine Neurological Exam Present: alert, oriented X3 Results - Labs CBC & Chem 7: 12/08/17 04:51 12/08/17 04:51 Laboratory Results - last 24 hr 12/08/17 12/08/17 04:51 04:51 WBC 10.7 RBC 3.96 L Hgb 12.8 L Hct 38.5 L MCV 97.2 MCH 32.2 MCHC 33.1 RDW 15.3 Plt Count 169 MPV 10.2 Sodium 142 Potassium 3.6 Chloride 108 H Carbon Dioxide 25.1 Anion Gap 9 BUN 11 Creatinine 1.41 H Estimated GFR 49 L Random Glucose 103 Calcium 7.6 L Phosphorus 2.4 L Magnesium 1.8 Total Bilirubin 0.5 AST 15 ALT 21 Alkaline Phosphatase 71 Total Protein 5.6 L D Albumin 2.1 L Assessment and Plan - Attending Attestation IMPRESSION: 1. Lymphocytic colitis--overall he has had some improvement since admission but he still having several loose, watery and semi-formed stools a day 2. Diarrhea. 3. Ventricular tachycardia-stable 4. Renal insufficiency. 5. Nausea and vomitingno pain with this. Etiology unclear RECOMMENDATIONS: 1. continue steroids (Uceris 9 milligrams daily). patient understands it may take several weeks for him to improve. 2. Imodium -he can take it every 6 hours if needed 3. Continue cholestyramine--but increase to 3 times daily 4. As soon as he can demonstrate maintenance of hydration and his electrolytes with diet and w/o IV fluids he can go home. It is going to take several weeks for his diarrhea/loose stools to improve (solid bowel movement)--- he does not have to have formed bowel movements to be discharged 5. I have asked him to remain upright for 30 minutes before he lays down-this may help his nausea and vomiting 6. We may have to pursue an upper endoscopy but he would have to be off his Eliquis and we need cardiac clearance in regards to his defibrillator and his episodes of V. tach 7. Dr. Hussain Delacruz will see the patient tomorrow
--- NOTE | 2017-12-08 15:27 | P.PNIM ---
Subjective Interval history: Patient reports some nausea with nonbloody vomiting this morning. Denies any chest pain or shortness of breath. Physical Exam Vital signs: Vital Signs 12/07/17 16:00 12/07/17 17:00 12/07/17 18:00 Temperature 98.2 F Pulse Rate 56 L 60 58 L Respiratory Rate 16 Blood Pressure 84/46 L Pulse Oximetry 96 12/07/17 19:00 12/07/17 19:54 12/07/17 20:00 Temperature 99.1 F Pulse Rate 55 L 57 L 58 L Respiratory Rate 18 Blood Pressure 117/66 Pulse Oximetry 96 12/07/17 21:00 12/07/17 22:00 12/07/17 23:00 Temperature Pulse Rate 60 57 L 62 Respiratory Rate Blood Pressure Pulse Oximetry 12/07/17 23:35 12/08/17 00:00 12/08/17 01:00 Temperature 98.7 F Pulse Rate 59 L 57 L 61 Respiratory Rate 18 16 Blood Pressure 108/60 Pulse Oximetry 95 12/08/17 02:00 12/08/17 03:00 12/08/17 04:00 Temperature 98.1 F Pulse Rate 64 62 65 Respiratory Rate 18 Blood Pressure 96/66 L Pulse Oximetry 95 12/08/17 05:00 12/08/17 06:00 12/08/17 07:00 Temperature Pulse Rate 66 64 61 Respiratory Rate Blood Pressure Pulse Oximetry 12/08/17 08:00 12/08/17 08:56 12/08/17 09:00 Temperature 97.7 F Pulse Rate 69 75 71 Respiratory Rate 20 20 Blood Pressure 91/51 L Pulse Oximetry 95 12/08/17 10:00 12/08/17 11:00 12/08/17 12:00 Temperature 97.5 F L 97.5 F L Pulse Rate 65 63 63 Respiratory Rate 20 20 Blood Pressure 108/53 L 108/53 L Pulse Oximetry 93 L 12/08/17 13:00 12/08/17 14:00 12/08/17 15:00 Temperature Pulse Rate 69 65 67 Respiratory Rate Blood Pressure Pulse Oximetry Intake & Output 12/07/17 12/08/17 12/08/17 18:59 06:59 18:59 Intake Total 1300 / 1300 460 / 460 Balance 1300 / 1300 460 / 460 Weight 118.3 kg Intake: Oral 1300 / 1300 460 / 460 Other: # Voids 5 4 Date of Last Bowel Movement 12/07/17 12/08/17 # Bowel Movements 9 5 # Emeses 3 Narrative: GENERAL: Patient sitting up in bed. Appears comfortable. Exam unchanged from yesterday. SKIN: Warm and dry. HEAD: Normocephalic. EYES: No scleral icterus. No injection or drainage. NECK: Supple, trachea midline. No JVD. CARDIOVASCULAR: Regular rate and rhythm without murmurs, gallops, or rubs. RESPIRATORY: Breath sounds equal bilaterally. No accessory muscle use. GASTROINTESTINAL: Abdomen soft, non-tender, nondistended. MUSCULOSKELETAL: No cyanosis, or edema. BACK: Nontender without obvious deformity. No CVA tenderness. Results - Labs CBC & Chem 7: 12/08/17 04:51 12/08/17 04:51 Laboratory Results - last 24 hr 12/08/17 12/08/17 04:51 04:51 WBC 10.7 RBC 3.96 L Hgb 12.8 L Hct 38.5 L MCV 97.2 MCH 32.2 MCHC 33.1 RDW 15.3 Plt Count 169 MPV 10.2 Sodium 142 Potassium 3.6 Chloride 108 H Carbon Dioxide 25.1 Anion Gap 9 BUN 11 Creatinine 1.41 H Estimated GFR 49 L Random Glucose 103 Calcium 7.6 L Phosphorus 2.4 L Magnesium 1.8 Total Bilirubin 0.5 AST 15 ALT 21 Alkaline Phosphatase 71 Total Protein 5.6 L D Albumin 2.1 L Assessment and Plan - Plan 77-year-old male who presented to the hospital after multiple AICD firing. The patient has been having worsening diarrhea, persistent nausea and vomiting which subsequently resolved and severe electrolyte abnormalities. He was admitted to the ICU. He is transferred to the hospitalist service. V. tach likely secondary to severe hypokalemia Status post AICD Essential hypertension Hyperlipidemia Elevated troponin Patient with a [facility] AICD. Interrogation 12/01 revealed 5 episodes of V. tach with successful cardioversion Cardiology consultation with Dr. Piper Currently on amiodarone drip at 0.5 mg/min per protocol. Plan to discontinue amiodarone drip today per cardiology. Continue carvedilol 12.5 mg daily/home medication for hypertension along with trazodone 1 mg daily Continue atorvastatin 80 mg daily for dyslipidemia. Currently holding sacubitril/valsartan 2 06/11 1 tablet daily Continue Eliquis for A. fib. = Reviewed telemetry. No sustained V. tach. Cardiology following. Appreciate assistance. Lymphocytic colitis: -Appreciate GI following. First-line treatment is budesonide which is not available in the hospital. Dr. Martin kindly is providing samples from his office to help treat the patient -Continue to monitor. IV fluid support. = Continue day 3 of budesonide. Still with diarrhea, 4 bowel movements prior to 10 AM.. Will start loperamide prn .GI following. Appreciate assistance. Stop IV fluids and monitor electrolytes. = 12/07. Stool has firmed up, however still intermittent nausea, multiple loose stools. Continue loperamide, budesonide, cholestyramine. Appreciate GI assistance. Off of IV fluids right now. If patient can stay hydrated off of IV fluids, hopefully can discharge home. Creatinine took a small bump to 1.3, however still around previous baseline. We will continue to monitor. = 12/08. With some nausea or vomiting. Creatinine stable however. We will continue to monitor off IV fluids. Continue budesonide. Continue loperamide, continue cholestyramine. Hypothyroidism Gout Continue levothyroxine 150 mcg p.o. daily Allopurinol 100 mg daily Sliding scale insulin if indicated to maintain euglycemia Kidney injury acute versus chronic Left renal cyst Acute hypokalemia -Appreciate nephrology following. AK I likely secondary to prerenal azotemia. Renal functions improving. - Hypokalemia resolved. = 12/06. Kidney function improved. Creatinine 1.28. Will stop IV fluids and monitor = 12/07. Creatinine bumped to 1.4. Still better than baseline. Monitor off of IV fluids. = 12/08. Creatinine stable at 1.4 on by mouth. We will continue to monitor. Prophylaxis GI--Pantoprazole DVT - apixaban provides DVT prophylaxis Discharge Planning: Pending improvement in diarrhea, and stability and renal function off of IV fluids
[2017-12-08] MEDS: Allopurinol 100 MG Tablet PO SCH (21:35)
[2017-12-09] MEDS: Loperamide 2 MG Capsule PO PRN (00:21)
[2017-12-09] MEDS: Levothyroxine 150 MCG Tablet PO SCH (05:27)
[2017-12-09 06:21] LABS: Hematocrit 38.8 % (39.0-51.0); Hemoglobin 12.9 gm/dL (13.0-17.0); Mean Corpuscular HGB Conc 33.3 % (32.0-36.0); Mean Corpuscular Hemoglobin 31.9 pg (27.0-34.0); Mean Corpuscular Volume 95.9 fL (80.0-100.0); Platelet Count 178 th/mm3 (150-450); Red Blood Count 4.04 mil/mm3 (4.50-5.90); Red Cell Distribution Width 14.7 % (11.6-17.2); White Blood Count 9.9 th/mm3 (4.0-11.0)
[2017-12-09 06:42] LABS: Alanine Aminotransferase 20 U/L (12-78); Albumin 2.2 g/dL (3.4-5.0); Anion Gap 8 meq/L (5-15); Aspartate Aminotransferase 15 U/L (15-37); Blood Urea Nitrogen 10 mg/dL (7-18); Calcium 7.7 mg/dL (8.5-10.1); Carbon Dioxide 25.6 meq/L (21.0-32.0); Chloride 108 meq/L (98-107); Glomerular Filtration Rate 56 mL/min (>89); Glucose,Random 97 mg/dL (74-106); Magnesium 1.8 mg/dL (1.5-2.5); Phosphorus 2.9 mg/dL (2.5-4.9); Potassium 3.8 meq/L (3.5-5.1); Sodium 142 meq/L (136-145)
[2017-12-09 06:44] LABS: Alkaline Phosphatase 71 U/L (45-117); Total Protein 5.6 g/dL (6.4-8.2)
--- NOTE | 2017-12-09 07:53 | P.PNGI ---
Subjective Interval history: feels okay today, still c/o of diarrhea. overall improved but still having loose stool n/v improved. tolerating diet. pt concerned he may not be able to afford Uceris as outpt. Physical Exam Vital signs: Vital Signs 12/08/17 08:00 12/08/17 08:56 12/08/17 09:00 Temperature 97.7 F Pulse Rate 69 75 71 Respiratory Rate 20 20 Blood Pressure 91/51 L Pulse Oximetry 95 12/08/17 10:00 12/08/17 11:00 12/08/17 12:00 Temperature 97.5 F L 97.5 F L Pulse Rate 65 63 63 Respiratory Rate 20 20 Blood Pressure 108/53 L 108/53 L Pulse Oximetry 93 L 12/08/17 13:00 12/08/17 14:00 12/08/17 15:00 Temperature Pulse Rate 69 65 67 Respiratory Rate Blood Pressure Pulse Oximetry 12/08/17 16:00 12/08/17 17:00 12/08/17 18:00 Temperature 98.3 F Pulse Rate 66 67 66 Respiratory Rate 20 Blood Pressure 128/76 Pulse Oximetry 97 12/08/17 19:00 12/08/17 19:36 12/08/17 20:00 Temperature 98.5 F Pulse Rate 61 62 Respiratory Rate 18 Blood Pressure 108/62 Pulse Oximetry 94 L 96 12/08/17 21:00 12/08/17 22:00 12/08/17 23:00 Temperature Pulse Rate 82 65 64 Respiratory Rate Blood Pressure Pulse Oximetry 12/08/17 23:54 12/09/17 00:00 12/09/17 01:00 Temperature 98.4 F Pulse Rate 62 74 64 Respiratory Rate 18 17 Blood Pressure 109/57 L Pulse Oximetry 93 L 12/09/17 02:00 12/09/17 03:00 12/09/17 04:00 Temperature 98.2 F Pulse Rate 66 62 66 Respiratory Rate 17 Blood Pressure 94/64 L Pulse Oximetry 97 12/09/17 05:00 12/09/17 06:00 Temperature Pulse Rate 69 74 Respiratory Rate Blood Pressure Pulse Oximetry Intake & Output 12/08/17 12/09/17 12/09/17 18:59 06:59 18:59 Intake Total 1200 / 1200 460 / 460 Output Total 1150 / 1150 Balance 50 / 50 460 / 460 Weight 117.3 kg Intake: Oral 1200 / 1200 460 / 460 Output: Urine 950 / 950 Emesis 200 / 200 Other: # Voids 3 Date of Last Bowel Movement 12/08/17 12/09/17 # Bowel Movements 1 4 # Emeses 1 - Constitutional mild distress - Routine HEENT Exam Head: Present: normocephalic - Routine Neck Exam Present: supple, full ROM - Routine Respiratory Exam Present: CTA bilaterally, distant breath sounds - Routine Cardiovascular Exam Present: RRR, bradycardia - Routine Abdominal Exam Present: soft, normoactive bowel sounds. Absent: tenderness - Routine Extremities Exam Present: full ROM - Routine Skin Exam Present: intact - Routine Neurological Exam Present: alert, oriented X3 Results - Labs CBC & Chem 7: 12/09/17 05:03 12/09/17 05:03 Laboratory Results - last 24 hr 12/09/17 12/09/17 05:03 05:03 WBC 9.9 RBC 4.04 L Hgb 12.9 L Hct 38.8 L MCV 95.9 MCH 31.9 MCHC 33.3 RDW 14.7 Plt Count 178 MPV 10.0 Sodium 142 Potassium 3.8 Chloride 108 H Carbon Dioxide 25.6 Anion Gap 8 BUN 10 Creatinine 1.25 Estimated GFR 56 L Random Glucose 97 Calcium 7.7 L Phosphorus 2.9 Magnesium 1.8 Total Bilirubin 0.4 AST 15 ALT 20 Alkaline Phosphatase 71 Total Protein 5.6 L Albumin 2.2 L Assessment and Plan - Plan IMP: 1. Lymphocytic colitis 2. Diarrhea due to above 3. n/V PLAN: 1. Continue Uceris 9 mg daily 2. Will start Lomotil and d/c Imodium 3. continue Questran 4. diet as tolerated.
[2017-12-09] MEDS: BUDESONIDE 9 MG PO SCH (09:46)
[2017-12-09] MEDS: Carvedilol 12.5 MG Tablet PO SCH (09:47)
--- NOTE | 2017-12-09 09:56 | P.DS ---
Date of admission: 12/01/17 18:29 Primary care physician: Katty Casey MD Brief History from admission: 77-year-old very pleasant male presents with multiple AICD discharges. The patient states that he has a [employer] pacemaker/ defibrillator for history of A fib/ V fib. He has had multiple episodes of vomiting over the past several days associated with diarrhea and states that last night he felt his AICD discharge once. Today, he has had another 3 episodes of feeling the AICD discharge. He states that prior to these episodes he feels "like my heart starts racing" and gets sweaty and lightheaded. He denies chest pain prior to being defibrillated. He also reports 2 months of diarrhea for which is following with gastroenterology. DS: Medications - Discharge Medications Prescriptions: diphenoxylate-atropine 1 tab PO Q6HR 30 Days tab DS: Summary Hospital Course: 77-year-old male who presented to the hospital after multiple AICD firing. The patient has been having worsening diarrhea, persistent nausea and vomiting which subsequently resolved and severe electrolyte abnormalities. He was admitted to the ICU. He is transferred to the hospitalist service. V. tach likely secondary to severe hypokalemia Status post AICD Essential hypertension Hyperlipidemia Elevated troponin Patient with a [employer] AICD. Interrogation 12/01 revealed 5 episodes of V. tach with successful cardioversion Cardiology consultation with Dr. Piper Currently on amiodarone drip at 0.5 mg/min per protocol. Plan to discontinue amiodarone drip today per cardiology. Continue carvedilol 12.5 mg daily/home medication for hypertension along with trazodone 1 mg daily Continue atorvastatin 80 mg daily for dyslipidemia. Currently holding sacubitril/valsartan 2 06/11 1 tablet daily Continue Eliquis for A. fib. = Reviewed telemetry. No sustained V. tach. Cardiology following. Appreciate assistance. = V. tach was secondary to upper kalemia on admission. This has resolved and stable Lymphocytic colitis: -Appreciate GI following. First-line treatment is budesonide which is not available in the hospital. Dr. Martin kindly is providing samples from his office to help treat the patient -Continue to monitor. IV fluid support. = Continue day 3 of budesonide. Still with diarrhea, 4 bowel movements prior to 10 AM.. Will start loperamide prn .GI following. Appreciate assistance. Stop IV fluids and monitor electrolytes. = 12/07. Stool has firmed up, however still intermittent nausea, multiple loose stools. Continue loperamide, budesonide, cholestyramine. Appreciate GI assistance. Off of IV fluids right now. If patient can stay hydrated off of IV fluids, hopefully can discharge home. Creatinine took a small bump to 1.3, however still around previous baseline. We will continue to monitor. = 12/08. With some nausea or vomiting. Creatinine stable however. We will continue to monitor off IV fluids. Continue budesonide. Continue loperamide, continue cholestyramine. = 12/09. Dr. Delacruz from gastroenterology following today. Switched from Imodium to Lomotil. Patient still with loose stool however staying hydrated, creatinine has improved to 1.25. Potassium stable. Continue off of Entresto. Blood pressure borderline. Expect diarrhea to improve, at which point patient can be restarted on blood pressure medications. Hypothyroidism Gout Continue levothyroxine 150 mcg p.o. daily Allopurinol 100 mg daily Sliding scale insulin if indicated to maintain euglycemia Kidney injury acute versus chronic Left renal cyst Acute hypokalemia -Appreciate nephrology following. AK I likely secondary to prerenal azotemia. Renal functions improving. - Hypokalemia resolved. = 12/06. Kidney function improved. Creatinine 1.28. Will stop IV fluids and monitor = 12/07. Creatinine bumped to 1.4. Still better than baseline. Monitor off of IV fluids. = 12/08. Creatinine stable at 1.4 on by mouth. We will continue to monitor. = 12/09. Creatinine stable 1.25. Prophylaxis GI--Pantoprazole DVT - apixaban provides DVT prophylaxis Discharge Planning: Kidney function stable off of IV fluids. Diarrhea slow to improve, however may take weeks. Will discharge home if cleared by gastroenterology. Follow-up with cardiology as outpatient. - Time Spent with Patient Total time spent providing and/or coordinating discharge services: Greater than 30 minutes - Quality: VTE Deep Vein Thrombosis/Pulmonary Embolism Present on Admission: No Exam Vital signs: Vital Signs 12/08/17 10:00 12/08/17 11:00 12/08/17 12:00 Temperature 97.5 F L 97.5 F L Pulse Rate 65 63 63 Respiratory Rate 20 20 Blood Pressure 108/53 L 108/53 L Pulse Oximetry 93 L 12/08/17 13:00 12/08/17 14:00 12/08/17 15:00 Temperature Pulse Rate 69 65 67 Respiratory Rate Blood Pressure Pulse Oximetry 12/08/17 16:00 12/08/17 17:00 12/08/17 18:00 Temperature 98.3 F Pulse Rate 66 67 66 Respiratory Rate 20 Blood Pressure 128/76 Pulse Oximetry 97 12/08/17 19:00 12/08/17 19:36 12/08/17 20:00 Temperature 98.5 F Pulse Rate 61 62 Respiratory Rate 18 Blood Pressure 108/62 Pulse Oximetry 94 L 96 12/08/17 21:00 12/08/17 22:00 12/08/17 23:00 Temperature Pulse Rate 82 65 64 Respiratory Rate Blood Pressure Pulse Oximetry 12/08/17 23:54 12/09/17 00:00 12/09/17 01:00 Temperature 98.4 F Pulse Rate 62 74 64 Respiratory Rate 18 17 Blood Pressure 109/57 L Pulse Oximetry 93 L 12/09/17 02:00 12/09/17 03:00 12/09/17 04:00 Temperature 98.2 F Pulse Rate 66 62 66 Respiratory Rate 17 Blood Pressure 94/64 L Pulse Oximetry 97 12/09/17 05:00 12/09/17 06:00 12/09/17 07:00 Temperature Pulse Rate 69 74 70 Respiratory Rate Blood Pressure Pulse Oximetry 12/09/17 07:47 12/09/17 08:00 12/09/17 09:00 Temperature 98.6 F 98.6 F Pulse Rate 65 65 67 Respiratory Rate 18 18 Blood Pressure 116/64 116/64 Pulse Oximetry 96 96 Intake & Output 12/08/17 12/09/17 12/09/17 18:59 06:59 18:59 Intake Total 1200 / 1200 460 / 460 Output Total 1150 / 1150 Balance 50 / 50 460 / 460 Weight 117.3 kg Intake: Oral 1200 / 1200 460 / 460 Output: Urine 950 / 950 Emesis 200 / 200 Other: # Voids 3 Date of Last Bowel Movement 12/08/17 12/09/17 12/09/17 # Bowel Movements 1 4 # Emeses 1 Results Labs on day of discharge: Labs from last 24 hours 12/09/17 12/09/17 05:03 05:03 WBC 9.9 RBC 4.04 L Hgb 12.9 L Hct 38.8 L MCV 95.9 MCH 31.9 MCHC 33.3 RDW 14.7 Plt Count 178 MPV 10.0 Sodium 142 Potassium 3.8 Chloride 108 H Carbon Dioxide 25.6 Anion Gap 8 BUN 10 Creatinine 1.25 Estimated GFR 56 L Random Glucose 97 Calcium 7.7 L Phosphorus 2.9 Magnesium 1.8 Total Bilirubin 0.4 AST 15 ALT 20 Alkaline Phosphatase 71 Total Protein 5.6 L Albumin 2.2 L - Impressions ITS Impressions Abdomen/Pelvis CT 12/01/17 00:00 CONCLUSION: 1. No definite acute abnormality is seen. 2. 2.2 cm exophytic mass off the inferior left kidney. This may represent a cyst although is nonspecific on this noncontrast CT examination. 3. Degenerative change in lumbar spine. 4. Suspected lipoma at the distal second portion of duodenum and a superiorly directed diverticulum at the proximal third portion the duodenum. Chest X-Ray 12/01/17 16:30 CONCLUSION: Left subclavian single lead pacer. Lungs are clear. Venous Doppler Study 12/06/17 00:00 CONCLUSION: 1. Occlusive thrombus in the basilic vein. 2. The deep venous system is patent. Discharge Plan - Discharge Disposition Patient Disposition: 01 Discharge Home - Discharge Condition Condition: Good - Discharge Order Discharge Orders: Discharge Order (Routine); Ordered 12/09/17 Ordered By: Barry Machado - Discharge Details Anticipated Discharge Date: 12/09/17 Discharge Comment: dc when cleared by gastroenterology - Physicians Team Primary Care Provider: Katty Casey Attending Provider: Barry Machado Other Providers: Maryam Piper MD ; Zulema Wagner MD ; Sergey Levy MD ; Jeremy Tipton MD ; [employer]
[2017-12-09 10:16] VITALS: O2SAT 94
[2017-12-09 10:59] VITALS: BP 116/75; RESP 20; TEMP 97.8
[2017-12-09] MEDS ORDERED: Diphenoxylate/Atropine 2.5/0.025 MG Tablet PO SCH (12:00)
[2017-12-09 12:05] VITALS: PULSE 63
== END 2017-12-09 12:56 | disposition home or self-care (01) ==
LOC: NEPE 16:06 → NEDA 18:29 → HIMC 22:50 → HCIS 12-03 20:00
PROVIDERS: ADMIT Internal Medicine; ATTEND Internal Medicine